=== PATIENT | female | born 1925 | race Caucasian/White ===

== ENCOUNTER 2017-06-17 17:38 | Inpatient (IN) | payer MEDICARE, OTHER ==
[2017-06-17] MEDS ORDERED: Ondansetron 4 MG/2 ML SDV IVPUSH ONE (17:57)
[2017-06-17] MEDS ORDERED: Sodium Chloride 0.9% 1,000 ML IV SCH (18:00)
--- NOTE | 2017-06-17 18:02 | EDM.PDOC ---
ED HPI GENERAL MEDICAL PROBLEM - General Chief Complaint: Respiratory Problem Stated Complaint: [facility] Time Seen by Provider: 06/17/17 17:46 Source of Information: Reports: Patient, EMS Notes Reviewed History Limitations: Reports: No Limitations - History of Present Illness INITIAL COMMENTS - FREE TEXT/NARRATIVE: 89-year-old female presents to the ED per [place] [facility]. She states she developed chest discomfort this afternoon with a rather productive sounding cough and shortness of breath. She has not felt well for the last 2-3 days. She has not eaten hardly at all today and ate only a small amount yesterday. She doesn't clarify that she has any fever or severe chills. Is not noted any odor to her urine. Denies any dysuria urgency or frequency. Denies any chest pain. She was placed on oxygen en route to the hospital but here off of oxygen her sats are 100% on room air. Her pressure is elevated. He is alert and able to answer all questions fairly appropriately. She has a pacemaker left upper anterior chest which apparently the Isauro's are very low. She has not made the decision whether to pursue pacemaker battery change due to her age of 89. She is hoping to outlive her pacemaker Onset: Today Onset Date: 06/17/17 Onset Time: 14:00 Duration: Hour(s): Location: Reports: Chest (Central chest discomfort with a cough and shortness of breath.) Quality: Reports: Ache, Pressure Severity: Moderate Improves with: Reports: None Worsens with: Reports: Other Context: Reports: Other. Denies: Activity (Lying flat seemed to make things worse.), Exercise, Lifting, Sick Contact, Trauma Associated Symptoms: Reports: Chest Pain (Is bringing up some sputum but not aware of any color to chest discomfort and more to the left), Cough (Gradual onset of not feeling well over the last couple of days), cough w sputum, Loss of Appetite, Malaise, Shortness of Breath, Weakness. 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: Other (see below) (Has taken only her normal medications.) - Related Data Allergies Allergy/AdvReac Type Severity Reaction Status Date / Time No Known Allergies Allergy Verified 06/17/17 17:53 Home Meds: Home Meds Aspirin [Ecotrin] 81 mg PO DAILY 11/15/15 [History] Calcium Carbonate [Calcium] 600 mg PO DAILY 11/15/15 [History] Diltiazem HCl [Diltiazem 24Hr ER] 240 mg PO DAILY 11/15/15 [History] Ferrous Sulfate [Iron] 65 mg PO DAILY 11/15/15 [History] Gabapentin [Neurontin] 300 mg PO TID 11/15/15 [History] Losartan [Cozaar] 50 mg PO DAILY 11/15/15 [History] Magnesium Glycinate [Mag Glycinate] 100 mg PO DAILY 11/15/15 [History] Metoprolol Tartrate 100 mg PO BID 11/15/15 [History] Multivitamin [One-A-Day Essential] 1 tab PO DAILY 11/15/15 [History] Omeprazole 20 mg PO BID 11/15/15 [History] Oxybutynin [Oxybutynin ER] 5 mg PO DAILY 11/15/15 [History] Potassium Chloride 20 meq PO DAILY 11/15/15 [History] Pravastatin [Pravachol] 20 mg PO DAILY 11/15/15 [History] SitaGLIPtin [Januvia] 50 mg PO DAILY 11/15/15 [History] Terazosin [Hytrin] 5 mg PO DAILY 11/15/15 [History] Vitamin B6-pyridOXINE [Vitamin B6] 100 mg PO BID 11/15/15 [History] Warfarin [Coumadin] 2 mg PO MOWEFR 11/15/15 [History] Warfarin [Coumadin] 4 mg PO SUTUTHSA 11/15/15 [History] Furosemide [Lasix] 40 mg PO ASDIRECTED #0 11/23/15 [Rx] Metolazone 5 mg PO ASDIRECTED #0 11/23/15 [Rx] Past Medical History HEENT History: Reports: Cataract, Impaired Vision, Other (See Below) Other HEENT History: wears glasses Cardiovascular History: Reports: Angina, Blood Clots/VTE/DVT (Is on Coumadin for this.), Heart Failure, Heart Murmur, High Cholesterol, Hypertension, [place], Pacemaker Gastrointestinal History: Reports: GERD, Hemorrhoids Musculoskeletal History: Reports: Arthritis, Osteoporosis Neurological History: Reports: Other (See Below) Other Neuro History: pt. stated they told her she had a stroke before Endocrine/Metabolic History: Reports: Diabetes, Type II - Past Surgical History HEENT Surgical History: Reports: Cataract Surgery GI Surgical History: Reports: Appendectomy, Cholecystectomy, Colonoscopy, Other (See Below) Female Surgical History: Reports: Other (See Below) Social & Family History - Family History Family Medical History: Noncontributory - Tobacco Use Smoking Status *Q: Never Smoker Second Hand Smoke Exposure: No - Recreational Drug Use Recreational Drug Use: No Drug Use in Last 12 Months: No - Living Situation & Occupation Living situation: Reports: with Spouse Occupation: Retired Social History Comment: [place] [facility] with her . ED ROS GENERAL - Review of Systems Review Of Systems: See Below Constitutional: Reports: Malaise, Weakness, Fatigue, Decreased Appetite, Weight Loss. Denies: Fever, Chills HEENT: Reports: Glasses (The last 2 days.), Other (Has mild hearing loss but does not wear hearing aids.) Respiratory: Reports: Shortness of Breath, Cough, Sputum (Starting today.). Denies: Wheezing, Pleuritic Chest Pain, Hemoptysis ( Feels she is bringing up some sputum.) Cardiovascular: Reports: Chest Pain, Blood Pressure Problem (Central precordial chest discomfort today.), Dyspnea on Exertion, Lightheadedness. Denies: Claudication, Edema, Orthopnea ( Hypertension) Endocrine: Reports: Fatigue (Chronically) GI/Abdominal: Reports: Constipation, Decreased Appetite (Last couple of days for sure.), Nausea. Denies: Vomiting : Reports: Frequency, Incontinence (Both stress and urge components.). Denies : Dysuria Musculoskeletal: Reports: Neck Pain, Back Pain Skin: Reports: No Symptoms Neurological: Reports: Other (Has diabetic neuropathy in her lower extremities is on gabapentin for this. Has chronic lower leg pain.) Psychiatric: Reports: Depression Hematologic/Lymphatic: Reports: No Symptoms Immunologic: Reports: No Symptoms ED EXAM, GENERAL - Physical Exam Exam: See Below Exam Limited By: No Limitations General Appearance: Alert, No Apparent Distress, Other (Does feel mildly warm to palpation.) Eye Exam: Right Eye: Normal Inspection (Previous cataract) Ears: Normal TMs Throat/Mouth: Other (Tongue is moderately dry and coated) Head: Atraumatic, Normocephalic (. She clinically appears to be mildly volume depleted.) Neck: Normal Inspection, Limited Range of Motion, Tender Lateral (She has crepitus on lateral rotation of the cervical spine). No: Full Range of Motion, Carotid Bruit, Lymphadenopathy (L), Lymphadenopathy (R) Respiratory/Chest: No Respiratory Distress, Lungs Clear, Decreased Breath Sounds (Breath sounds are mildly decreased to the lower 25% of lung rosales without any adventitial sounds.). No: Rales, Rhonchi, Wheezing Cardiovascular: No Edema, No Gallop, Systolic Murmur (She has a grade 1-2 systolic ejection murmur to the left of the sternum that radiates towards the left axilla compatible with mitral insufficiency. I suspect there is also grade 1 pansystolic murmur at the left lateral sternal border compatible with aortic stenosis as well. He does not radiate up into the carotid arteries however.), Other (Pacemaker left upper anterior chest. Monitor the rhythm is primarily paced rhythm at 68/m) Peripheral Pulses: 1+: Posterior Tibial (L), Posterior Tibial (R), Dorsalis Pedis (L), Dorsalis Pedis (R) GI/Abdominal: Normal Bowel Sounds, Soft, Non-Tender, No Organomegaly Back Exam: Decreased Range of Motion. No: CVA Tenderness (L), CVA Tenderness (R ) Extremities: Normal Inspection, Normal Range of Motion, Non-Tender, No Pedal Edema. No: Pedal Edema Neurological: Alert, Oriented, CN II-XII Intact, Normal Cognition Psychiatric: Normal Affect, Normal Mood Skin Exam: Warm, Dry, Intact, Normal Color, No Rash, Other (Does feel slightly warm to palpation but this is not confirmed by temperature checked by nursing staff.) EKG INTERPRETATION EKG Date: 06/17/17 Time: 18:20 Rhythm: Other (Primarily ventricular paced rhythm at 70/m. There are frequent PACs sees with widened complex due to left bundle branch block pattern. The underlying rhythm is likely atrial fibrillation. This would be a better reason for her to be on Coumadin long-term.) [place]: LAD-Left [place] Deviation (-49 left bundle branch block pattern) EKG Interpretation Comments: Due to paced rhythm no further analysis was attempted. Course - Vital Signs Last Recorded V/S: Last Vital Signs Temp 36.9 C 06/17/17 17:42 Pulse 86 06/17/17 17:42 Resp 13 06/17/17 17:42 BP 168/82 H 06/17/17 17:42 Pulse Ox 100 06/17/17 17:42 - Orders/Labs/Meds Orders: Active Orders 24 hr Category Date Time Status EKG Documentation Completion [RC] STAT Care 06/17/17 17:57 Active Chest 1V Frontal [CR] Stat Exams 06/17/17 17:57 Taken CULTURE BLOOD [BC] Stat Lab 06/17/17 18:43 Received CULTURE BLOOD [BC] Stat Lab 06/17/17 18:51 Received OSMOLALITY,SERUM [CHEM] Stat Lab 06/17/17 20:00 Ordered Magnesium Sulfate/Water [Magnesium Sulfate 4 GM in Med 06/17/17 19:48 Ordered Water 100 ML] 4 gm Premix Bag 1 bag IV ONETIME Blood Culture x2 Reflex Set [OM.PC] Stat Oth 06/17/17 17:59 Ordered Medication Orders Magnesium Sulfate 4 gm/ Premix 100 mls @ 50 mls/hr IV ONETIME ONE Stop: 06/17/17 21:47 Labs: Laboratory Tests 06/17/17 06/17/17 06/17/17 Range/Units 18:06 18:43 18:43 WBC 17.79 H (3.98-10.04) K/mm3 RBC 4.47 (3.98-5.22) M/mm3 Hgb 12.9 (11.2-15.7) gm/L Hct 38.8 (34.1-44.9) % MCV 86.8 (79.4-94.8) fl MCH 28.9 (25.6-32.2) pg MCHC 33.2 (32.2-35.5) g/dl RDW Std Deviation 43.2 (36.4-46.3) fL Plt Count 430 H (182-369) K/mm3 MPV 9.4 (9.4-12.3) fl Neutrophils % (Manual) 71 H (40-60) % Band Neutrophils % 0 (0-10) % Lymphocytes % (Manual) 29 (20-40) % Atypical Lymphs % 0 % Monocytes % (Manual) 0 L (2-10) % Eosinophils % (Manual) 0 L (0.7-5.8) % Basophils % (Manual) 0 L (0.1-1.2) Platelet Estimate Adequate RBC Morph Comment Normal PT 13.8 H (8.0-13.0) SECONDS INR 1.29 Sodium (136-145) mEq/L Potassium (3.5-5.1) mEq/L Chloride (98-107) mEq/L Carbon Dioxide (21-32) mEq/L Anion Gap (5-15) BUN (7-18) mg/dL Creatinine (0.55-1.02) mg/dL Est Cr Clr Drug Dosing mL/min Estimated GFR (MDRD) (>60) mL/min BUN/Creatinine Ratio (14-18) Glucose (83-115) mg/dL Lactic Acid (0.4-2.0) mmol/L Calcium (8.5-10.1) mg/dL Magnesium (1.8-2.4) mg/dl Total Bilirubin (0.2-1.0) mg/dL AST (15-37) U/L ALT (14-59) U/L Alkaline Phosphatase (46-116) U/L CK-MB (CK-2) (0-3.6) ng/ml Troponin I (0.00-0.056) ng/mL C-Reactive Protein (<1.0) mg/dL NT-Pro-B Natriuret Pep (0-450) pg/mL Total Protein (6.4-8.2) g/dl Albumin (3.4-5.0) g/dl Globulin gm/dL Albumin/Globulin Ratio (1-2) Urine Color Yellow (Yellow) Urine Appearance Clear (Clear) Urine pH 7.0 (5.0-8.0) Ur Specific [place] 1.015 (1.005-1.030) Urine Protein 2+ H (Negative) Urine Glucose (UA) Negative (Negative) Urine Ketones Negative (Negative) Urine Occult Blood 1+ H (Negative) Urine Nitrite Negative (Negative) Urine Bilirubin Negative (Negative) Urine Urobilinogen 0.2 (0.2-1.0) Ur Leukocyte Esterase Trace H (Negative) Urine RBC 0-5 (0-5) /hpf Urine WBC 0-5 (0-5) /hpf Ur Epithelial Cells 0-5 (0-5) /hpf Urine Bacteria Few (FEW) /hpf Urine Mucus Not seen (FEW) /hpf Ketones (0.0-0.3) mM 06/17/17 06/17/17 06/17/17 Range/Units 18:43 18:43 18:43 WBC (3.98-10.04) K/mm3 RBC (3.98-5.22) M/mm3 Hgb (11.2-15.7) gm/L Hct (34.1-44.9) % MCV (79.4-94.8) fl MCH (25.6-32.2) pg MCHC (32.2-35.5) g/dl RDW Std Deviation (36.4-46.3) fL Plt Count (182-369) K/mm3 MPV (9.4-12.3) fl Neutrophils % (Manual) (40-60) % Band Neutrophils % (0-10) % Lymphocytes % (Manual) (20-40) % Atypical Lymphs % % Monocytes % (Manual) (2-10) % Eosinophils % (Manual) (0.7-5.8) % Basophils % (Manual) (0.1-1.2) Platelet Estimate RBC Morph Comment PT (8.0-13.0) SECONDS INR Sodium 129 L (136-145) mEq/L Potassium 3.7 (3.5-5.1) mEq/L Chloride 90 L (98-107) mEq/L Carbon Dioxide 30 (21-32) mEq/L Anion Gap 12.7 (5-15) BUN 29 H (7-18) mg/dL Creatinine 1.1 H (0.55-1.02) mg/dL Est Cr Clr Drug Dosing 26.16 mL/min Estimated GFR (MDRD) 47 (>60) mL/min BUN/Creatinine Ratio 26.4 H (14-18) Glucose 113 (83-115) mg/dL Lactic Acid 1.1 (0.4-2.0) mmol/L Calcium 9.0 (8.5-10.1) mg/dL Magnesium 1.1 L (1.8-2.4) mg/dl Total Bilirubin 0.5 (0.2-1.0) mg/dL AST 18 (15-37) U/L ALT 27 (14-59) U/L Alkaline Phosphatase 141 H (46-116) U/L CK-MB (CK-2) 0.7 (0-3.6) ng/ml Troponin I 0.039 (0.00-0.056) ng/mL C-Reactive Protein 1.3 H* (<1.0) mg/dL NT-Pro-B Natriuret Pep (0-450) pg/mL Total Protein 7.1 (6.4-8.2) g/dl Albumin 2.9 L (3.4-5.0) g/dl Globulin 4.2 gm/dL Albumin/Globulin Ratio 0.7 L (1-2) Urine Color (Yellow) Urine Appearance (Clear) Urine pH (5.0-8.0) Ur Specific [place] (1.005-1.030) Urine Protein (Negative) Urine Glucose (UA) (Negative) Urine Ketones (Negative) Urine Occult Blood (Negative) Urine Nitrite (Negative) Urine Bilirubin (Negative) Urine Urobilinogen (0.2-1.0) Ur Leukocyte Esterase (Negative) Urine RBC (0-5) /hpf Urine WBC (0-5) /hpf Ur Epithelial Cells (0-5) /hpf Urine Bacteria (FEW) /hpf Urine Mucus (FEW) /hpf Ketones 0.39 (0.0-0.3) mM 03/25/18 Range/Units 18:43 WBC (3.98-10.04) K/mm3 RBC (3.98-5.22) M/mm3 Hgb (11.2-15.7) gm/L Hct (34.1-44.9) % MCV (79.4-94.8) fl MCH (25.6-32.2) pg MCHC (32.2-35.5) g/dl RDW Std Deviation (36.4-46.3) fL Plt Count (182-369) K/mm3 MPV (9.4-12.3) fl Neutrophils % (Manual) (40-60) % Band Neutrophils % (0-10) % Lymphocytes % (Manual) (20-40) % Atypical Lymphs % % Monocytes % (Manual) (2-10) % Eosinophils % (Manual) (0.7-5.8) % Basophils % (Manual) (0.1-1.2) Platelet Estimate RBC Morph Comment PT (8.0-13.0) SECONDS INR Sodium (136-145) mEq/L Potassium (3.5-5.1) mEq/L Chloride (98-107) mEq/L Carbon Dioxide (21-32) mEq/L Anion Gap (5-15) BUN (7-18) mg/dL Creatinine (0.55-1.02) mg/dL Est Cr Clr Drug Dosing mL/min Estimated GFR (MDRD) (>60) mL/min BUN/Creatinine Ratio (14-18) Glucose (83-115) mg/dL Lactic Acid (0.4-2.0) mmol/L Calcium (8.5-10.1) mg/dL Magnesium (1.8-2.4) mg/dl Total Bilirubin (0.2-1.0) mg/dL AST (15-37) U/L ALT (14-59) U/L Alkaline Phosphatase (46-116) U/L CK-MB (CK-2) (0-3.6) ng/ml Troponin I (0.00-0.056) ng/mL C-Reactive Protein (<1.0) mg/dL NT-Pro-B Natriuret Pep 5457 H (0-450) pg/mL Total Protein (6.4-8.2) g/dl Albumin (3.4-5.0) g/dl Globulin gm/dL Albumin/Globulin Ratio (1-2) Urine Color (Yellow) Urine Appearance (Clear) Urine pH (5.0-8.0) Ur Specific [place] (1.005-1.030) Urine Protein (Negative) Urine Glucose (UA) (Negative) Urine Ketones (Negative) Urine Occult Blood (Negative) Urine Nitrite (Negative) Urine Bilirubin (Negative) Urine Urobilinogen (0.2-1.0) Ur Leukocyte Esterase (Negative) Urine RBC (0-5) /hpf Urine WBC (0-5) /hpf Ur Epithelial Cells (0-5) /hpf Urine Bacteria (FEW) /hpf Urine Mucus (FEW) /hpf Ketones (0.0-0.3) mM Meds: Medications Generic Name Dose Route Start Last Admin Trade Name Freq PRN Reason Stop Dose Admin Magnesium Sulfate 4 gm/ Premix 100 mls @ 50 mls/hr 06/17/17 19:48 IV 06/17/17 21:47 ONETIME ONE Discontinued Medications Generic Name Dose Route Start Last Admin Trade Name Freq PRN Reason Stop Dose Admin Furosemide 40 mg 06/17/17 19:02 06/17/17 19:20 Lasix IVPUSH 06/17/17 19:03 40 mg NOW ONE Administration Sodium Chloride 1,000 mls @ 150 mls/hr 06/17/17 18:00 06/17/17 18:08 Normal Saline IV 150 mls/hr ASDIRECTED ARNOLD Administration Ondansetron HCl 4 mg 06/17/17 17:57 06/17/17 18:08 Zofran IVPUSH 06/17/17 17:58 4 mg ONETIME ONE Administration - Radiology Interpretation Free Text/Narrative:: 89-year-old female attends the ED per ambulance from [place]. She states that she developed chest discomfort with a cough mid afternoon today about 1400 hrs. She's not sure she's been running a fever but she's not been feeling well for the last 2-3 days. Has hardly ate anything at all today and not much yesterday. Feeling weak. Feels mildly nauseated but has had no vomiting or diarrhea. She has not had influenza this season. She has a history of a bad heart with a paced rhythm that the battery is going low on her pacemaker. She has not made a decision as to whether to have the pacemaker replaced. She is rather hoping the pacemaker out lives her. She states does have a mild cough with minimal productive sputum. Examination reveals clear lung rosales with O2 sats 98-100% on initial assessment. Therefore oxygen was taken off. Plan 1 view chest x-ray ECG routine labs including cardiac markers and BNP to be done urine will be obtained by catheterized specimen as I can smell foul-smelling urine. - Re-Assessments/Exams Free Text/Narrative Re-Assessment/Exam: 06/17/17 18:53 Chest x-ray reveals mild cardiomegaly with diffuse vascular congestion pattern. There are no pleural effusions however. Pacemaker left upper anterior chest appreciated with a solitary ventricular lead. Urinalysis obtained by catheter reveals only trace leukocyte esterase with no significant pus cells on high-power field. Since the chest x-ray reveals diffuse vascular congestion I will give her Lasix 40 mg IV at this time. Labs are otherwise pending. 06/17/17 19:33 White count is elevated at 17.79 with 71% neutrophils and no bands reported. Hemoglobin is 12.9 with hematocrit of 38.8. Bili count is 430, 000 which is mildly elevated. PT is 13.8 with an INR of 1.29. This is subtherapeutic for DVT treatment or prevention. Sodium is low at 129. Potassium is 3.7. Chloride is 90. Bicarbonate 30. Anion gap is 12.7. BUN is 29. Creatinine is 1.1. Estimated GFR is 47. Glucose is 113 lactic acid is 1.1 calcium is 9.0. Magnesium is very low at 1.1. Total bilirubin is 0.5 with an AST of 18. ALT is 27 alk phosphatase slightly elevated at 141. CK-MB is normal at 0.7. Troponin I is 0.039. C-reactive protein is mildly elevated 1.3. BNP is 5457. Urinalysis urinalysis shows 2+ protein 1+ occult blood trace leukocyte esterase but negative micro-. I have no way of explaining why her white count is so high. Her BNP certainly correlates with her chest x-ray revealing significant congestive heart failure but this is chronic. There is no evidence of recent acute deterioration of myocardial function [place]. She has hypomagnesemic and hyponatremic concerning to her weakness and nausea. I will discuss case with Dr. Richardson-- education and training coordinator hospitalist with a view to admission to hospital.. I discussed the findings with her and daughter. I followed up from the daughter that patient was on 80 mg of Lasix twice a day but that the dosage was changed a few weeks ago to 40 in the morning and 20 in the p.m. and she since has deteriorated in terms of pulmonary function and shortness of breath. 06/17/17 19:41 Will start her on magnesium 4 g IV at [address] Richardson will attend her in the ED with a view to admission to the hospital med surgery status. Of note serum ketones are mildly elevated at 0.39. Departure - Departure Time of Disposition: 20:30 Disposition: Admitted As Inpatient 68 Clinical Impression: Neutrophilic leukocytosis, Hyponatremia with decreased serum osmolality, Hypomagnesemia, Chronic atrial fibrillation, Subtherapeutic international normalized ratio (INR) Acute exacerbation of congestive heart failure Qualifiers: Heart failure type: diastolic Qualified Code(s): I50.33 - Acute on chronic diastolic (congestive) heart failure - Discharge Information Referrals: PCP,None [Primary Care Provider] - Forms: ED Department Discharge - My Orders Last 24 Hours: My Active Orders 06/17/17 17:57 EKG Documentation Completion [RC] STAT Chest 1V Frontal [CR] Stat 06/17/17 17:59 Blood Culture x2 Reflex Set [OM.PC] Stat 06/17/17 18:43 CULTURE BLOOD [BC] Stat 06/17/17 18:51 CULTURE BLOOD [BC] Stat 06/17/17 19:48 Magnesium Sulfate/Water [Magnesium Sulfate 4 GM in Water 100 ML] 4 gm Premix Bag 1 bag IV ONETIME 06/17/17 20:00 OSMOLALITY,SERUM [CHEM] Stat - Assessment/Plan Last 24 Hours: My Active Orders 06/17/17 17:57 EKG Documentation Completion [RC] STAT Chest 1V Frontal [CR] Stat 06/17/17 17:59 Blood Culture x2 Reflex Set [OM.PC] Stat 06/17/17 18:43 CULTURE BLOOD [BC] Stat 06/17/17 18:51 CULTURE BLOOD [BC] Stat 06/17/17 19:48 Magnesium Sulfate/Water [Magnesium Sulfate 4 GM in Water 100 ML] 4 gm Premix Bag 1 bag IV ONETIME 06/17/17 20:00 OSMOLALITY,SERUM [CHEM] Stat
[2017-06-17] MEDS ORDERED: Furosemide 40 MG/4 ML VIAL IVPUSH ONE (19:02)
[2017-06-17] MEDS ORDERED: Magnesium Sulfate/Water 4 GM in Premix Bag 1 BAG IV ONE (19:48)
[2017-06-17] MEDS ORDERED: Magnesium Sulfate/Water 2 GM in Premix Bag 1 BAG IV ONE ×2 (20:02→20:03)
--- NOTE | 2017-06-17 20:44 | PCM.HP ---
H&P History of Present Illness - General Date of Service: 06/17/17 Source of Information: Family, Provider History Limitations: Reports: No Limitations - History of Present Illness Initial Comments - Free Text/Narative: 89 year old female reports SOB with associated CP. This was reported as happening on the day of admission. However the exact duration is unknown. The patient also reported having a productive cough but no F/C. She admits to [place], recent weight gain after an adjustment of her diuretic. Moreover her Oxybutynin was increased from 5 mg-->10 mg without improvement. She denies symptoms of a UTI. The UA however does have 2+protein. A PPM is reportedly at EOL; thus a generator change or upgrade will be discussed at her next cardiology visit. This is scheduled for July 2017. Onset of Symptoms: Reports: Gradual Symptom Onset Date: 06/14/17 Duration of Symptoms: Reports: Day(s):, Getting Worse Location: Reports: Chest, Generalized Quality: Reports: Same as Previous Episode Severity: Moderate Improves with: Reports: Medication Worsens with: Reports: Movement Context: Reports: Sick Contact Associated Symptoms: Reports: cough w sputum, Malaise, Nausea/Vomiting, Shortness of Breath, Weakness - Related Data Allergies/Adverse Reactions: Allergies Allergy/AdvReac Type Severity Reaction Status Date / Time No Known Allergies Allergy Verified 06/18/17 09:18 Home Medications: Home Meds Aspirin [Ecotrin] 81 mg PO DAILY 11/15/15 [History] Ferrous Sulfate [Iron] 325 mg PO DAILY 11/15/15 [History] Gabapentin [Neurontin] 300 mg PO TID 11/15/15 [History] Losartan [Cozaar] 50 mg PO BID 11/15/15 [History] Metoprolol Tartrate 100 mg PO BID 11/15/15 [History] Multivitamin [One-A-Day Essential] 1 tab PO DAILY 11/15/15 [History] Omeprazole 40 mg PO DAILY 11/15/15 [History] Potassium Chloride 20 meq PO DAILY 11/15/15 [History] Pravastatin [Pravachol] 20 mg PO BEDTIME 11/15/15 [History] SitaGLIPtin [Januvia] 50 mg PO DAILY 11/15/15 [History] Vitamin B6-pyridOXINE [Vitamin B6] 100 mg PO BID 11/15/15 [History] Warfarin [Coumadin] 2 mg PO MOWEFR 11/15/15 [History] Warfarin [Coumadin] 4 mg PO SUTUTHSA 11/15/15 [History] Calcium Carbonate/Vitamin D3 [Calcium 500-Vit D3 200 Caplet] 1 tab PO ACBREAKFAST 06/17/17 [History] Digoxin 125 mcg PO DAILY 06/17/17 [History] Furosemide [Lasix] 20 mg PO QPM 06/17/17 [History] Levothyroxine 25 mcg PO ACBREAKFAST 06/17/17 [History] Metolazone 2.5 mg PO TUTHSA 06/17/17 [History] Oxybutynin [Oxybutynin ER] 10 mg PO DAILY 06/17/17 [History] Furosemide [Lasix] 40 mg PO QAM 06/18/17 [History] Past Medical History HEENT History: Reports: Cataract, Impaired Vision, Other (See Below) Other HEENT History: wears glasses Cardiovascular History: Reports: Angina, Blood Clots/VTE/DVT (Is on Coumadin for this.), Heart Failure, Heart Murmur, High Cholesterol, Hypertension, SD, Pacemaker Gastrointestinal History: Reports: GERD, Hemorrhoids 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 stated they told her she had a stroke before Endocrine/Metabolic History: Reports: Diabetes, Type II - Past Surgical History HEENT Surgical History: Reports: Cataract Surgery GI Surgical History: Reports: Appendectomy, Cholecystectomy, Colonoscopy, Other (See Below) Female Surgical History: Reports: Other (See Below) Social & Family History - Family History Family Medical History: Noncontributory - Tobacco Use Smoking Status *Q: Never Smoker Second Hand Smoke Exposure: No - Caffeine Use Caffeine Use: Reports: None - Recreational Drug Use Recreational Drug Use: No Drug Use in Last 12 Months: No - Living Situation & Occupation Living situation: Reports: with Spouse Occupation: Retired H&P Review of Systems - Review of Systems: Review Of Systems: See Below General: Reports: Malaise, Weakness, Fatigue, Decreased Appetite HEENT: Reports: No Symptoms Pulmonary: Reports: Shortness of Breath, Cough, Sputum Cardiovascular: Reports: Chest Pain, Lightheadedness Gastrointestinal: Reports: No Symptoms Genitourinary: Reports: No Symptoms Musculoskeletal: Reports: No Symptoms Skin: Reports: No Symptoms Psychiatric: Reports: No Symptoms Neurological: Reports: No Symptoms Hematologic/Lymphatic: Reports: No Symptoms Immunologic: Reports: No Symptoms Exam - Exam Exam: See Below - Vital Signs Vital Signs: Last Vital Signs Temp 36.9 C 06/17/17 17:42 Pulse 86 06/17/17 17:42 Resp 13 06/17/17 17:42 BP 168/82 H 06/17/17 17:42 Pulse Ox 100 06/17/17 17:42 Weight: 71.668 kg - Exam Quality Assessment: Supplemental Oxygen, Urinary Catheter, DVT Prophylaxis General: Alert, Oriented, Cooperative HEENT: Conjunctiva Clear, Pupils Equal, Pupils Reactive, PERRLA Neck: Trachea Midline Lungs: Normal Respiratory Effort, Decreased Breath Sounds, Crackles, Wheezing Cardiovascular: Regular Rate, Regular Rhythm GI/Abdominal Exam: Normal Bowel Sounds, Soft, Non-Tender, No Organomegaly, No Distention (Female) Exam: Deferred Rectal (Female) Exam: Deferred Back Exam: Normal Inspection Extremities: Normal Inspection, Non-Tender, Pedal Edema Skin: Warm Neurological: Cranial Nerves Intact Neuro Extensive - Mental Status: Alert, Oriented x3, Normal Mood/Affect Neuro Extensive - Motor, Sensory, Reflexes: CN II-XII Intact Psychiatric: Alert, Normal Affect, Normal Mood - Patient Data Result Diagrams: 06/20/17 04:45 06/20/17 04:45 Problem List Initiated/Reviewed/Updated: Yes Orders Last 24hrs: Medication Orders Magnesium Sulfate 4 gm/ Premix 100 mls @ 50 mls/hr IV ONETIME ONE Stop: 06/17/17 21:47 Last Admin: 06/17/17 20:03 Dose: Not Given Magnesium Sulfate 2 gm/ Premix 50 mls @ 25 mls/hr IV ONETIME ONE Stop: 06/17/17 22:01 Last Admin: 06/17/17 20:11 Dose: 25 mls/hr Magnesium Sulfate 2 gm/ Premix 50 mls @ 25 mls/hr IV ONETIME ONE Stop: 06/17/17 22:02 Assessment/Plan Comment:: Impression: Multiple complaints-->chest pain with associated SOB ---Query PNA; elevated WBCs ---CAD/CMP; LVEF unknown ---CHF-->reportedly adjustment of diuretic has led to fluid overload. ---A Fib on coumadin; subtherapeutic INR ---s/p PPM, VVI History of CVA ---Query embolic cf ischemic CKD stage 3; 2+ protein in UA Low Mg, 1.1 Low Na, 129 Chronic VTE/DVT Diabetes Mellitus type 2 HTN HLD Urinary Incontinence (urge and stress) Plan: Empiric ATB, Levoquin--renal dose Neb scheduled/prn Infectious work up Ischemic work up Diurese as tolerated 2 D echo re: LVEF Verify status of PPM, reportedly EOL Daily Labs Home meds DVT/GI prophylaxis Consult SW/PT/OT Disposition--->doubt that HH would be enough for patient's needs
[2017-06-17] MEDS ORDERED: hydrALAZINE 20 MG/ML SDV IVPUSH PRN (20:52)
[2017-06-17] MEDS ORDERED: Levofloxacin/Dextrose 5%-Water 750 MG in Premix Bag 1 BAG IV SCH (21:00)
[2017-06-17] MEDS ORDERED: 50% Dextrose in Water 50 ML Syringe IVPUSH PRN (21:06)
[2017-06-17] MEDS ORDERED: Enoxaparin 40 MG/0.4 ML Syringe SUBCUT SCH (21:30)
[2017-06-17] MEDS: Insulin Aspart 100 Units/ML 3 ML Pen SUBCUT SCH (22:30)
[2017-06-18] MEDS: Levofloxacin/Dextrose 5%-Water 750 MG in Premix Bag 1 BAG IV SCH (00:38)
[2017-06-18] MEDS: Insulin Aspart 100 Units/ML 3 ML Pen SUBCUT SCH ×4 (06:37→21:28)
[2017-06-18] MEDS: Pantoprazole 40 MG Tab.CR PO SCH (06:46)
[2017-06-18] MEDS: Acetaminophen 325 MG Tab PO PRN (06:46)
[2017-06-18] MEDS: Levothyroxine 25 MCG Tab PO SCH (06:46)
[2017-06-18] MEDS: Digoxin 125 MCG Tab PO SCH (08:18)
[2017-06-18] MEDS: Oxybutynin 5 MG Tab.ER PO SCH (08:18)
[2017-06-18] MEDS: Aspirin 81 MG Tab.EC PO SCH (08:18)
[2017-06-18] MEDS: Ferrous Sulfate 325 MG Tab PO SCH (08:18)
[2017-06-18] MEDS: Metoprolol Tartrate 100 MG Tab PO SCH ×2 (08:18→20:55)
[2017-06-18] MEDS: Gabapentin 300 MG Cap PO SCH ×3 (08:18→20:55)
[2017-06-18] MEDS: Potassium Chloride 20 MEQ Tab.ER PO SCH (08:18)
[2017-06-18] MEDS ORDERED: Non-Formulary Medication 1 Each (Omeprazole 40 MG) PO SCH (09:00)
--- NOTE | 2017-06-18 09:33 | CR ---
Chest: Frontal view of the chest was obtained. Comparison: Prior chest x-ray of 11/15/15. Heart is enlarged. Pulmonary vessels are mildly congested. Lungs otherwise are clear. Unichamber pacemaker is noted. Bony structures show mild degenerative change within both shoulders. Impression: 1. Cardiomegaly and mild pulmonary vascular congestion. 2. Other incidental findings. Diagnostic code #3
--- NOTE | 2017-06-18 11:57 | PCM.PN ---
- General Info Date of Service: 06/18/17 Functional Status: Reports: Tolerating Diet, Urinating - Review of Systems General: Reports: Weakness, Fatigue HEENT: Reports: No Symptoms Pulmonary: Reports: Shortness of Breath Cardiovascular: Reports: Edema Gastrointestinal: Reports: No Symptoms Genitourinary: Reports: No Symptoms Musculoskeletal: Reports: No Symptoms Skin: Reports: No Symptoms Neurological: Reports: No Symptoms Psychiatric: Reports: No Symptoms - Patient Data Vitals - Most Recent: Last Vital Signs Temp 37.0 C 06/18/17 07:29 Pulse 88 06/18/17 08:18 Resp 28 H 06/18/17 07:29 BP 131/61 06/18/17 08:18 Pulse Ox 100 06/18/17 07:29 Weight - Most Recent: 64.92 kg I&O - Last 24 Hours: Intake & Output 06/17/17 06/18/17 06/18/17 22:59 06:59 14:59 Intake Total 600 360 Output Total 1650 Balance -1050 360 Lab Results Last 24 Hours: Laboratory Results - last 24 hr 06/17/17 06/18/17 06/18/17 Range/Units 22:25 06:11 06:21 WBC 17.67 H (3.98-10.04) K/mm3 RBC 4.50 (3.98-5.22) M/mm3 Hgb 13.0 (11.2-15.7) gm/L Hct 39.4 (34.1-44.9) % MCV 87.6 (79.4-94.8) fl MCH 28.9 (25.6-32.2) pg MCHC 33.0 (32.2-35.5) g/dl RDW Std Deviation 45.1 (36.4-46.3) fL Plt Count 433 H (182-369) K/mm3 MPV 9.1 L (9.4-12.3) fl Neut % (Auto) 64.2 (34.0-71.1) % Lymph % (Auto) 27.3 (19.3-51.7) % Mayes % (Auto) 5.4 (4.7-12.5) % Eos % (Auto) 2.4 (0.7-5.8) Baso % (Auto) 0.2 (0.1-1.2) % Neut # (Auto) 11.37 H (1.56-6.13) K/mm3 Lymph # (Auto) 4.82 H (1.18-3.74) K/mm3 Mayes # (Auto) 0.95 H (0.24-0.36) K/mm3 Eos # (Auto) 0.42 H (0.04-0.36) K/mm3 Baso # (Auto) 0.03 (0.01-0.08) K/mm3 PT (8.0-13.0) SECONDS INR Sodium (136-145) mEq/L Potassium (3.5-5.1) mEq/L Chloride (98-107) mEq/L Carbon Dioxide (21-32) mEq/L Anion Gap (5-15) BUN (7-18) mg/dL Creatinine (0.55-1.02) mg/dL Est Cr Clr Drug Dosing mL/min Estimated GFR (MDRD) (>60) mL/min BUN/Creatinine Ratio (14-18) Glucose (83-115) mg/dL POC Glucose 134 H 117 H (83-110) mg/dL Hemoglobin A1c (4.50-6.20) % Lactic Acid (0.4-2.0) mmol/L Calcium (8.5-10.1) mg/dL Magnesium (1.8-2.4) mg/dl Troponin I (0.00-0.056) ng/mL C-Reactive Protein (<1.0) mg/dL NT-Pro-B Natriuret Pep (0-450) pg/mL Digoxin (0.9-2.0) ng/mL 06/18/17 06/18/17 06/18/17 Range/Units 06:21 06:21 06:21 WBC (3.98-10.04) K/mm3 RBC (3.98-5.22) M/mm3 Hgb (11.2-15.7) gm/L Hct (34.1-44.9) % MCV (79.4-94.8) fl MCH (25.6-32.2) pg MCHC (32.2-35.5) g/dl RDW Std Deviation (36.4-46.3) fL Plt Count (182-369) K/mm3 MPV (9.4-12.3) fl Neut % (Auto) (34.0-71.1) % Lymph % (Auto) (19.3-51.7) % Mayes % (Auto) (4.7-12.5) % Eos % (Auto) (0.7-5.8) Baso % (Auto) (0.1-1.2) % Neut # (Auto) (1.56-6.13) K/mm3 Lymph # (Auto) (1.18-3.74) K/mm3 Mayes # (Auto) (0.24-0.36) K/mm3 Eos # (Auto) (0.04-0.36) K/mm3 Baso # (Auto) (0.01-0.08) K/mm3 PT (8.0-13.0) SECONDS INR Sodium (136-145) mEq/L Potassium (3.5-5.1) mEq/L Chloride (98-107) mEq/L Carbon Dioxide (21-32) mEq/L Anion Gap (5-15) BUN (7-18) mg/dL Creatinine (0.55-1.02) mg/dL Est Cr Clr Drug Dosing mL/min Estimated GFR (MDRD) (>60) mL/min BUN/Creatinine Ratio (14-18) Glucose (83-115) mg/dL POC Glucose (83-110) mg/dL Hemoglobin A1c (4.50-6.20) % Lactic Acid 1.1 (0.4-2.0) mmol/L Calcium (8.5-10.1) mg/dL Magnesium 2.5 H (1.8-2.4) mg/dl Troponin I 0.032 (0.00-0.056) ng/mL C-Reactive Protein 1.7 H* (<1.0) mg/dL NT-Pro-B Natriuret Pep 6149 H (0-450) pg/mL Digoxin (0.9-2.0) ng/mL 06/18/17 06/18/17 06/18/17 Range/Units 06:21 06:21 10:59 WBC (3.98-10.04) K/mm3 RBC (3.98-5.22) M/mm3 Hgb (11.2-15.7) gm/L Hct (34.1-44.9) % MCV (79.4-94.8) fl MCH (25.6-32.2) pg MCHC (32.2-35.5) g/dl RDW Std Deviation (36.4-46.3) fL Plt Count (182-369) K/mm3 MPV (9.4-12.3) fl Neut % (Auto) (34.0-71.1) % Lymph % (Auto) (19.3-51.7) % Mayes % (Auto) (4.7-12.5) % Eos % (Auto) (0.7-5.8) Baso % (Auto) (0.1-1.2) % Neut # (Auto) (1.56-6.13) K/mm3 Lymph # (Auto) (1.18-3.74) K/mm3 Mayes # (Auto) (0.24-0.36) K/mm3 Eos # (Auto) (0.04-0.36) K/mm3 Baso # (Auto) (0.01-0.08) K/mm3 PT 13.5 H (8.0-13.0) SECONDS INR 1.26 Sodium (136-145) mEq/L Potassium (3.5-5.1) mEq/L Chloride (98-107) mEq/L Carbon Dioxide (21-32) mEq/L Anion Gap (5-15) BUN (7-18) mg/dL Creatinine (0.55-1.02) mg/dL Est Cr Clr Drug Dosing mL/min Estimated GFR (MDRD) (>60) mL/min BUN/Creatinine Ratio (14-18) Glucose (83-115) mg/dL POC Glucose (83-110) mg/dL Hemoglobin A1c 6.10 (4.50-6.20) % Lactic Acid (0.4-2.0) mmol/L Calcium (8.5-10.1) mg/dL Magnesium (1.8-2.4) mg/dl Troponin I (0.00-0.056) ng/mL C-Reactive Protein (<1.0) mg/dL NT-Pro-B Natriuret Pep (0-450) pg/mL Digoxin 2.0 (0.9-2.0) ng/mL 06/18/17 06/18/17 Range/Units 10:59 11:41 WBC (3.98-10.04) K/mm3 RBC (3.98-5.22) M/mm3 Hgb (11.2-15.7) gm/L Hct (34.1-44.9) % MCV (79.4-94.8) fl MCH (25.6-32.2) pg MCHC (32.2-35.5) g/dl RDW Std Deviation (36.4-46.3) fL Plt Count (182-369) K/mm3 MPV (9.4-12.3) fl Neut % (Auto) (34.0-71.1) % Lymph % (Auto) (19.3-51.7) % Mayes % (Auto) (4.7-12.5) % Eos % (Auto) (0.7-5.8) Baso % (Auto) (0.1-1.2) % Neut # (Auto) (1.56-6.13) K/mm3 Lymph # (Auto) (1.18-3.74) K/mm3 Mayes # (Auto) (0.24-0.36) K/mm3 Eos # (Auto) (0.04-0.36) K/mm3 Baso # (Auto) (0.01-0.08) K/mm3 PT (8.0-13.0) SECONDS INR Sodium 129 L (136-145) mEq/L Potassium 4.1 (3.5-5.1) mEq/L Chloride 90 L (98-107) mEq/L Carbon Dioxide 31 (21-32) mEq/L Anion Gap 12.1 (5-15) BUN 31 H (7-18) mg/dL Creatinine 1.3 H (0.55-1.02) mg/dL Est Cr Clr Drug Dosing 22.14 mL/min Estimated GFR (MDRD) 39 (>60) mL/min BUN/Creatinine Ratio 23.8 H (14-18) Glucose 127 H (83-115) mg/dL POC Glucose 102 (83-110) mg/dL Hemoglobin A1c (4.50-6.20) % Lactic Acid (0.4-2.0) mmol/L Calcium 8.8 (8.5-10.1) mg/dL Magnesium (1.8-2.4) mg/dl Troponin I (0.00-0.056) ng/mL C-Reactive Protein (<1.0) mg/dL NT-Pro-B Natriuret Pep (0-450) pg/mL Digoxin (0.9-2.0) ng/mL Jason Results Last 24 Hours: Microbiology 06/17/17 23:50 Influenza Type A Antigen Screen - Final Nasopharyngeal Swab NEGATIVE INFLUENZA A VIRUS AG Influenza Type B Antigen Screen - Final NEGATIVE INFLUENZA B VIRUS AG Med Orders - Current: Current Medications Acetaminophen (Tylenol) 650 mg PO Q6H PRN PRN Reason: Pain/Fever Last Admin: 06/18/17 06:46 Dose: 650 mg Aspirin (Halfprin) 81 mg PO DAILY [facility] Last Admin: 06/18/17 08:18 Dose: 81 mg Dextrose/Water (Dextrose 50% In Water) 50 ml IVPUSH ASDIRECTED PRN PRN Reason: Hypoglycemia Digoxin (Lanoxin) 125 mcg PO DAILY [facility] Last Admin: 06/18/17 08:18 Dose: 125 mcg Enoxaparin Sodium (Lovenox) 40 mg SUBCUT Q24H [facility] Last Admin: 06/17/17 22:30 Dose: 40 mg Ferrous Sulfate (Ferrous Sulfate) 325 mg PO DAILY [facility] Last Admin: 06/18/17 08:18 Dose: 325 mg Gabapentin (Neurontin) 300 mg PO TID [facility] Last Admin: 06/18/17 08:18 Dose: 300 mg Hydralazine HCl (Apresoline) 20 mg IVPUSH Q6H PRN PRN Reason: Hypertension Levofloxacin/Dextrose 750 mg/ (Premix) 150 mls @ 100 mls/hr IV Q48H [facility] Last Admin: 06/18/17 00:38 Dose: 100 mls/hr Insulin Aspart (Novolog) 0 unit SUBCUT QIDACANDBED [facility] PRN Reason: Protocol Last Admin: 06/18/17 06:37 Dose: Not Given Levothyroxine Sodium (Levothyroxine) 25 mcg PO ACBREAKFAST [facility] Last Admin: 06/18/17 06:46 Dose: 25 mcg Metolazone (Zaroxolyn) 2.5 mg PO TuThSa@0900 [facility] Metoprolol Tartrate (Lopressor) 100 mg PO BID [facility] Last Admin: 06/18/17 08:18 Dose: 100 mg Non-Formulary Medication (Sitagliptin) 50 mg PO DAILY [facility] Oxybutynin Chloride (Oxybutynin Er) 10 mg PO DAILY [facility] Last Admin: 06/18/17 08:18 Dose: 10 mg Pantoprazole Sodium (Protonix) 40 mg PO DAILY@0700 [facility] Last Admin: 06/18/17 06:46 Dose: 40 mg Potassium Chloride (Klor-Con M20) 20 meq PO DAILY [facility] Last Admin: 06/18/17 08:18 Dose: 20 meq Simvastatin (Zocor) 10 mg PO BEDTIME [facility] Temazepam (Restoril) 7.5 mg PO BEDTIME PRN PRN Reason: Insomnia Warfarin Sodium (Coumadin) 2 mg PO MoWeFr@1800 [facility] Warfarin Sodium (Coumadin) 4 mg PO SuTuThSa@1800 [facility] Discontinued Medications Furosemide (Lasix) 40 mg IVPUSH NOW ONE Stop: 06/17/17 19:03 Last Admin: 06/17/17 19:20 Dose: 40 mg Sodium Chloride (Normal Saline) 1,000 mls @ 150 mls/hr IV ASDIRECTED [facility] Last Admin: 06/17/17 18:08 Dose: 150 mls/hr Magnesium Sulfate 4 gm/ Premix 100 mls @ 50 mls/hr IV ONETIME ONE Stop: 06/17/17 21:47 Last Admin: 06/17/17 20:03 Dose: Not Given Magnesium Sulfate 2 gm/ Premix 50 mls @ 25 mls/hr IV ONETIME ONE Stop: 06/17/17 22:01 Last Admin: 06/17/17 20:11 Dose: 25 mls/hr Magnesium Sulfate 2 gm/ Premix 50 mls @ 25 mls/hr IV ONETIME ONE Stop: 06/17/17 22:02 Last Admin: 06/17/17 22:29 Dose: 25 mls/hr Ondansetron HCl (Zofran) 4 mg IVPUSH ONETIME ONE Stop: 06/17/17 17:58 Last Admin: 06/17/17 18:08 Dose: 4 mg - Exam Quality Assessment: Supplemental Oxygen, DVT Prophylaxis General: Alert, Oriented, Cooperative HEENT: Pupils Equal, Pupils Reactive, EOMI Neck: Trachea Midline, No JVD Lungs: Normal Respiratory Effort, Decreased Breath Sounds Cardiovascular: Regular Rate, Regular Rhythm GI/Abdominal Exam: Normal Bowel Sounds, Soft, Non-Tender, No Organomegaly, No Distention (Female) Exam: Deferred Back Exam: Normal Inspection Extremities: Normal Inspection, Non-Tender, Pedal Edema Skin: Warm Neurological: No New Focal Deficit Psy/Mental Status: Alert, Normal Affect, Normal Mood - Problem List Review Problem List Initiated/Reviewed/Updated: Yes - My Orders Last 24 Hours: My Active Orders 06/17/17 18:06 CULTURE URINE [RM] Routine 06/17/17 20:52 hydrALAZINE [Apresoline] 20 mg IVPUSH Q6H PRN 06/17/17 20:55 Activity as Tolerated [RC] .Routine Vital Signs [RC] 09,15,21,03 06/17/17 21:06 Blood Glucose Check, Bedside [RC] QIDACANDBED Dextrose 50% in Water 50 ml IVPUSH ASDIRECTED PRN 06/17/17 21:10 Consult to Cable Installation Technician [CONS] Routine 06/17/17 21:14 Antiembolic Devices [RC] BID Heart Failure Education [RC] DAILY ADEOLA Hose [Antiembolic Hose] [OM.PC] Routine 06/17/17 21:15 Temazepam [Restoril] 7.5 mg PO BEDTIME PRN 06/17/17 21:20 Bedrest Bedside Commode [RC] ASDIRECTED 06/17/17 21:27 Acetaminophen [Tylenol] 650 mg PO Q6H PRN 06/17/17 21:30 Enoxaparin [Lovenox] 40 mg SUBCUT Q24H Levofloxacin/Dextrose 5%-Water [Levaquin in D5W 750 MG/150 ML] 750 mg Premix Bag 1 bag IV Q48H 06/17/17 21:49 Resuscitation Status Routine 06/17/17 22:00 Insulin Aspart [NovoLOG] See Protocol SUBCUT QIDACANDBED 06/17/17 23:50 RESPIRATORY PANEL BY PCR [MREF] Routine 06/18/17 06:00 Levothyroxine 25 mcg PO ACBREAKFAST 06/18/17 07:00 Pantoprazole [ProTONIX] 40 mg PO DAILY@0700 06/18/17 09:00 Consult to Physical Therapy [PT Evaluation and Treatment] [CONS] Routine Aspirin [Halfprin] 81 mg PO DAILY Digoxin [Lanoxin] 125 mcg PO DAILY Ferrous Sulfate 325 mg PO DAILY Gabapentin [Neurontin] 300 mg PO TID Metoprolol Tartrate [Lopressor] 100 mg PO BID Oxybutynin [Oxybutynin ER] 10 mg PO DAILY Potassium Chloride [Klor-Con M20] 20 meq PO DAILY SitaGLIPtin 50 mg PO DAILY 06/18/17 09:30 Consult to Occupational Therapy [OT Evaluation and Treatment] [CONS] Routine 06/18/17 18:00 Warfarin [Coumadin] 2 mg PO MoWeFr@1800 06/18/17 21:00 Simvastatin [Zocor] 10 mg PO BEDTIME 06/18/17 Breakfast [employer] [employer] Diet [DIET] 06/19/17 05:00 CBC WITH AUTO DIFF [HEME] DAILY CRP [C-REACTIVE PROTEIN] [CHEM] DAILY LACTIC ACID [CHEM] DAILY MG [MAGNESIUM] [CHEM] DAILY PRO B-TYPE NATRIUR PEPT,BNPPRO [CHEM] DAILY 06/19/17 05:11 BMP [BASIC METABOLIC PANEL,BMP] [CHEM] Routine 06/19/17 09:00 Metolazone [Zaroxolyn] 2.5 mg PO TuThSa@0900 06/19/17 18:00 Warfarin [Coumadin] 4 mg PO SuTuThSa@1800 06/20/17 05:00 CBC WITH AUTO DIFF [HEME] DAILY CRP [C-REACTIVE PROTEIN] [CHEM] DAILY LACTIC ACID [CHEM] DAILY MG [MAGNESIUM] [CHEM] DAILY PRO B-TYPE NATRIUR PEPT,BNPPRO [CHEM] DAILY 06/20/17 05:11 BMP [BASIC METABOLIC PANEL,BMP] [CHEM] Routine 06/21/17 05:00 CBC WITH AUTO DIFF [HEME] DAILY CRP [C-REACTIVE PROTEIN] [CHEM] DAILY LACTIC ACID [CHEM] DAILY MG [MAGNESIUM] [CHEM] DAILY PRO B-TYPE NATRIUR PEPT,BNPPRO [CHEM] DAILY - Plan Plan:: Impression: Multiple complaints-->chest pain with associated SOB ---Query PNA; elevated WBCs ---CAD/CMP; LVEF unknown ---CHF-->reportedly adjustment of diuretic has led to fluid overload. ---A Fib on coumadin; subtherapeutic INR ---s/p PPM, VVI History of CVA ---Query embolic cf ischemic CKD stage 3; 2+ protein in UA Low Mg, 1.1 Low Na, 129 Chronic VTE/DVT Diabetes Mellitus type 2 HTN HLD Urinary Incontinence (urge and stress) Plan: Empiric ATB, Levoquin--renal dose Neb scheduled/prn Infectious work up Ischemic work up Diurese as tolerated; change from IVP to gtt 2 D echo re: LVEF Verify status of PPM, reportedly EOL Daily Labs Home meds DVT/GI prophylaxis Consult SW/PT/OT Disposition--->doubt that HH would be enough for patient's needs
[2017-06-18] MEDS ORDERED: Enoxaparin 30 MG/0.3 ML Syringe SUBCUT SCH (13:18)
[2017-06-18] MEDS ORDERED: Aluminum Hydroxide/Magnesium Hydroxide/Simethicone Susp 30 ML Cup PO ONE (15:50)
[2017-06-18] MEDS ORDERED: Warfarin 2 MG Tab PO SCH (18:00)
[2017-06-18] MEDS ORDERED: Furosemide 100 MG in Sodium Chloride 0.9% 90 ML IV SCH (19:45)
[2017-06-18] MEDS: Docusate Sodium 100 MG Cap PO SCH (20:49)
[2017-06-18] MEDS: Enoxaparin 30 MG/0.3 ML Syringe SUBCUT SCH (20:52)
[2017-06-18] MEDS: Simvastatin 10 MG Tab PO SCH (20:55)
[2017-06-18] MEDS: Temazepam 7.5 MG Cap PO PRN (22:37)
[2017-06-19] MEDS ORDERED: Metolazone 2.5 MG Tab PO SCH (09:00)
[2017-06-19] MEDS: Oxybutynin 5 MG Tab.ER PO SCH (09:23)
[2017-06-19] MEDS: Aspirin 81 MG Tab.EC PO SCH (09:24)
[2017-06-19] MEDS: Gabapentin 300 MG Cap PO SCH ×3 (09:24→21:01)
[2017-06-19] MEDS: Metoprolol Tartrate 100 MG Tab PO SCH ×2 (09:26→21:06)
[2017-06-19] MEDS: Digoxin 125 MCG Tab PO SCH (09:26)
[2017-06-19] MEDS: Ferrous Sulfate 325 MG Tab PO SCH (09:27)
[2017-06-19] MEDS: Potassium Chloride 20 MEQ Tab.ER PO SCH (09:28)
[2017-06-19] MEDS: Levothyroxine 25 MCG Tab PO SCH (10:12)
[2017-06-19] MEDS: Pantoprazole 40 MG Tab.CR PO SCH (10:12)
[2017-06-19] MEDS: Insulin Aspart 100 Units/ML 3 ML Pen SUBCUT SCH ×4 (10:12→21:03)
[2017-06-19] MEDS: SITAGLIPTIN 50 MG PO SCH ×2 (11:31→19:34)
--- NOTE | 2017-06-19 17:18 | PCM.PN ---
- General Info Date of Service: 06/19/17 Admission Dx/Problem (Free Text): Hyponatremia Subjective Update: In to see Jenna. She is resting in bed. Lasix drip is infusing. Will discontinue at 1800 tonight and re-evaluate with AM labs. She has no complaints or concerns. Echo is back and is noted in plan. No concerns from patient. Nursing has no concerns. Functional Status: Reports: Pain Controlled, Tolerating Diet, Ambulating, Urinating. Denies: New Symptoms - Review of Systems General: Reports: Weakness, Fatigue. Denies: Fever, Malaise, Chills HEENT: Reports: No Symptoms. Denies: Ear Pain, Eye Pain, Sinus Congestion, Sore Throat, Rhinitis Pulmonary: Reports: Shortness of Breath, Cough. Denies: Pleuritic Chest Pain, Wheezing Cardiovascular: Reports: Dyspnea on Exertion. Denies: Chest Pain, Palpitations , Edema Gastrointestinal: Reports: No Symptoms. Denies: Abdominal Pain, Constipation, Diarrhea, Nausea, Vomiting Genitourinary: Reports: No Symptoms. Denies: Dysuria, Frequency, Burning, Pain Musculoskeletal: Reports: No Symptoms Skin: Reports: No Symptoms Neurological: Reports: No Symptoms Psychiatric: Reports: No Symptoms - Patient Data Vitals - Most Recent: Last Vital Signs Temp 98.2 F 06/19/17 08:17 Pulse 70 06/19/17 16:25 Resp 16 06/19/17 16:25 BP 114/67 06/19/17 16:25 Pulse Ox 95 06/19/17 16:25 Weight - Most Recent: 144 lb I&O - Last 24 Hours: Intake & Output 06/19/17 06/19/17 06/19/17 06:59 14:59 22:59 Intake Total 120 1060 Output Total 425 500 100 Balance -425 -380 960 Lab Results Last 24 Hours: Laboratory Results - last 24 hr 06/18/17 06/18/17 06/19/17 Range/Units 17:20 21:23 05:15 WBC 15.18 H (3.98-10.04) K/mm3 RBC 4.00 (3.98-5.22) M/mm3 Hgb 11.9 (11.2-15.7) gm/L Hct 35.5 (34.1-44.9) % MCV 88.8 (79.4-94.8) fl MCH 29.8 (25.6-32.2) pg MCHC 33.5 (32.2-35.5) g/dl RDW Std Deviation 45.8 (36.4-46.3) fL Plt Count 424 H (182-369) K/mm3 MPV 9.4 (9.4-12.3) fl Neut % (Auto) 54.8 (34.0-71.1) % Lymph % (Auto) 36.2 (19.3-51.7) % [place] % (Auto) 5.4 (4.7-12.5) % Eos % (Auto) 3.2 (0.7-5.8) Baso % (Auto) 0.4 (0.1-1.2) % Neut # (Auto) 8.32 H (1.56-6.13) K/mm3 Lymph # (Auto) 5.49 H (1.18-3.74) K/mm3 [place] # (Auto) 0.82 H (0.24-0.36) K/mm3 Eos # (Auto) 0.49 H (0.04-0.36) K/mm3 Baso # (Auto) 0.06 (0.01-0.08) K/mm3 Manual Slide Review Abnormal smear PT (8.0-13.0) SECONDS INR Sodium (136-145) mEq/L Potassium (3.5-5.1) mEq/L Chloride (98-107) mEq/L Carbon Dioxide (21-32) mEq/L Anion Gap (5-15) BUN (7-18) mg/dL Creatinine (0.55-1.02) mg/dL Est Cr Clr Drug Dosing mL/min Estimated GFR (MDRD) (>60) mL/min BUN/Creatinine Ratio (14-18) Glucose (83-115) mg/dL POC Glucose 233 H 104 (83-110) mg/dL Lactic Acid (0.4-2.0) mmol/L Calcium (8.5-10.1) mg/dL Magnesium (1.8-2.4) mg/dl C-Reactive Protein (<1.0) mg/dL NT-Pro-B Natriuret Pep (0-450) pg/mL 03/27/18 03/27/18 03/27/18 Range/Units 05:15 05:15 05:15 WBC (3.98-10.04) K/mm3 RBC (3.98-5.22) M/mm3 Hgb (11.2-15.7) gm/L Hct (34.1-44.9) % MCV (79.4-94.8) fl MCH (25.6-32.2) pg MCHC (32.2-35.5) g/dl RDW Std Deviation (36.4-46.3) fL Plt Count (182-369) K/mm3 MPV (9.4-12.3) fl Neut % (Auto) (34.0-71.1) % Lymph % (Auto) (19.3-51.7) % [place] % (Auto) (4.7-12.5) % Eos % (Auto) (0.7-5.8) Baso % (Auto) (0.1-1.2) % Neut # (Auto) (1.56-6.13) K/mm3 Lymph # (Auto) (1.18-3.74) K/mm3 [place] # (Auto) (0.24-0.36) K/mm3 Eos # (Auto) (0.04-0.36) K/mm3 Baso # (Auto) (0.01-0.08) K/mm3 Manual Slide Review PT (8.0-13.0) SECONDS INR Sodium (136-145) mEq/L Potassium (3.5-5.1) mEq/L Chloride (98-107) mEq/L Carbon Dioxide (21-32) mEq/L Anion Gap (5-15) BUN (7-18) mg/dL Creatinine (0.55-1.02) mg/dL Est Cr Clr Drug Dosing mL/min Estimated GFR (MDRD) (>60) mL/min BUN/Creatinine Ratio (14-18) Glucose (83-115) mg/dL POC Glucose (83-110) mg/dL Lactic Acid 1.4 (0.4-2.0) mmol/L Calcium (8.5-10.1) mg/dL Magnesium 1.9 (1.8-2.4) mg/dl C-Reactive Protein 1.6 H* (<1.0) mg/dL NT-Pro-B Natriuret Pep 5015 H (0-450) pg/mL 06/19/17 06/19/17 06/19/17 Range/Units 05:18 06:19 11:02 WBC (3.98-10.04) K/mm3 RBC (3.98-5.22) M/mm3 Hgb (11.2-15.7) gm/L Hct (34.1-44.9) % MCV (79.4-94.8) fl MCH (25.6-32.2) pg MCHC (32.2-35.5) g/dl RDW Std Deviation (36.4-46.3) fL Plt Count (182-369) K/mm3 MPV (9.4-12.3) fl Neut % (Auto) (34.0-71.1) % Lymph % (Auto) (19.3-51.7) % [place] % (Auto) (4.7-12.5) % Eos % (Auto) (0.7-5.8) Baso % (Auto) (0.1-1.2) % Neut # (Auto) (1.56-6.13) K/mm3 Lymph # (Auto) (1.18-3.74) K/mm3 [place] # (Auto) (0.24-0.36) K/mm3 Eos # (Auto) (0.04-0.36) K/mm3 Baso # (Auto) (0.01-0.08) K/mm3 Manual Slide Review PT (8.0-13.0) SECONDS INR Sodium 130 L (136-145) mEq/L Potassium 4.5 (3.5-5.1) mEq/L Chloride 92 L (98-107) mEq/L Carbon Dioxide 30 (21-32) mEq/L Anion Gap 12.5 (5-15) BUN 39 H (7-18) mg/dL Creatinine 1.8 H (0.55-1.02) mg/dL Est Cr Clr Drug Dosing 15.99 mL/min Estimated GFR (MDRD) 26 (>60) mL/min BUN/Creatinine Ratio 21.7 H (14-18) Glucose 109 (83-115) mg/dL POC Glucose 123 H 86 (83-110) mg/dL Lactic Acid (0.4-2.0) mmol/L Calcium 8.7 (8.5-10.1) mg/dL Magnesium (1.8-2.4) mg/dl C-Reactive Protein (<1.0) mg/dL NT-Pro-B Natriuret Pep (0-450) pg/mL 06/19/17 Range/Units 14:54 WBC (3.98-10.04) K/mm3 RBC (3.98-5.22) M/mm3 Hgb (11.2-15.7) gm/L Hct (34.1-44.9) % MCV (79.4-94.8) fl MCH (25.6-32.2) pg MCHC (32.2-35.5) g/dl RDW Std Deviation (36.4-46.3) fL Plt Count (182-369) K/mm3 MPV (9.4-12.3) fl Neut % (Auto) (34.0-71.1) % Lymph % (Auto) (19.3-51.7) % [place] % (Auto) (4.7-12.5) % Eos % (Auto) (0.7-5.8) Baso % (Auto) (0.1-1.2) % Neut # (Auto) (1.56-6.13) K/mm3 Lymph # (Auto) (1.18-3.74) K/mm3 [place] # (Auto) (0.24-0.36) K/mm3 Eos # (Auto) (0.04-0.36) K/mm3 Baso # (Auto) (0.01-0.08) K/mm3 Manual Slide Review PT 16.9 H (8.0-13.0) SECONDS INR 1.57 Sodium (136-145) mEq/L Potassium (3.5-5.1) mEq/L Chloride (98-107) mEq/L Carbon Dioxide (21-32) mEq/L Anion Gap (5-15) BUN (7-18) mg/dL Creatinine (0.55-1.02) mg/dL Est Cr Clr Drug Dosing mL/min Estimated GFR (MDRD) (>60) mL/min BUN/Creatinine Ratio (14-18) Glucose (83-115) mg/dL POC Glucose (83-110) mg/dL Lactic Acid (0.4-2.0) mmol/L Calcium (8.5-10.1) mg/dL Magnesium (1.8-2.4) mg/dl C-Reactive Protein (<1.0) mg/dL NT-Pro-B Natriuret Pep (0-450) pg/mL Jason Results Last 24 Hours: Microbiology 06/17/17 18:06 Urine Culture - Preliminary Urine, Clean Catch 06/17/17 23:50 Respiratory Virus Panel (PCR) - Final Nasopharyngeal Swab 06/17/17 18:51 Aerobic Blood Culture - Preliminary Blood - Venous - Lab Draw NO GROWTH AFTER 1 DAY Anaerobic Blood Culture - Preliminary NO GROWTH AFTER 1 DAY 06/17/17 18:43 Aerobic Blood Culture - Preliminary Blood - Venous NO GROWTH AFTER 1 DAY Anaerobic Blood Culture - Preliminary NO GROWTH AFTER 1 DAY Med Orders - Current: Current Medications Acetaminophen (Tylenol) 650 mg PO Q6H PRN PRN Reason: Pain/Fever Last Admin: 06/18/17 06:46 Dose: 650 mg Aspirin (Halfprin) 81 mg PO DAILY [facility] Last Admin: 06/19/17 09:24 Dose: 81 mg Dextrose/Water (Dextrose 50% In Water) 50 ml IVPUSH ASDIRECTED PRN PRN Reason: Hypoglycemia Digoxin (Lanoxin) 125 mcg PO DAILY [facility] Last Admin: 06/19/17 09:26 Dose: 125 mcg Docusate Sodium (Colace) 100 mg PO BEDTIME [facility] Last Admin: 06/18/17 20:49 Dose: 100 mg Enoxaparin Sodium (Lovenox) 30 mg SUBCUT Q24H [facility] Last Admin: 06/18/17 20:52 Dose: 30 mg Ferrous Sulfate (Ferrous Sulfate) 325 mg PO DAILY [facility] Last Admin: 06/19/17 09:27 Dose: 325 mg Gabapentin (Neurontin) 300 mg PO TID [facility] Last Admin: 06/19/17 14:44 Dose: 300 mg Hydralazine HCl (Apresoline) 20 mg IVPUSH Q6H PRN PRN Reason: Hypertension Levofloxacin/Dextrose 750 mg/ (Premix) 150 mls @ 100 mls/hr IV Q48H [facility] Last Admin: 06/18/17 00:38 Dose: 100 mls/hr Furosemide 100 mg/ Sodium (Chloride) 100 mls @ 4 mls/hr IV TITRATE [facility]; Protocol Last Admin: 06/18/17 20:49 Dose: 4 mls/hr Insulin Aspart (Novolog) 0 unit SUBCUT QIDACANDBED [facility]; Protocol Last Admin: 06/19/17 11:17 Dose: Not Given Levothyroxine Sodium (Levothyroxine) 25 mcg PO ACBREAKFAST [facility] Last Admin: 06/19/17 10:12 Dose: Not Given Metolazone (Zaroxolyn) 2.5 mg PO TuThSa@0900 [facility] Last Admin: 06/19/17 09:25 Dose: 2.5 mg Metoprolol Tartrate (Lopressor) 100 mg PO BID [facility] Last Admin: 06/19/17 09:26 Dose: 100 mg Oxybutynin Chloride (Oxybutynin Er) 10 mg PO DAILY [facility] Last Admin: 06/19/17 09:23 Dose: 10 mg Pantoprazole Sodium (Protonix) 40 mg PO DAILY@0700 [facility] Last Admin: 06/19/17 10:12 Dose: Not Given Potassium Chloride (Klor-Con M20) 20 meq PO DAILY [facility] Last Admin: 06/19/17 09:28 Dose: 20 meq Simvastatin (Zocor) 10 mg PO BEDTIME [facility] Last Admin: 06/18/17 20:55 Dose: 10 mg Temazepam (Restoril) 7.5 mg PO BEDTIME PRN PRN Reason: Insomnia Last Admin: 06/18/17 22:37 Dose: 7.5 mg Warfarin Sodium (Pharmacy To Dose - Warfarin) 1 dose .XX ASDIRECTED [facility] Warfarin Sodium (Coumadin) 5 mg PO ONETIME ONE Stop: 06/19/17 18:01 Discontinued Medications Al Hydroxide/Mg Hydroxide (Mag-Al Plus) 15 ml PO ONETIME ONE Stop: 06/18/17 15:51 Last Admin: 06/18/17 15:51 Dose: 15 ml Enoxaparin Sodium (Lovenox) 40 mg SUBCUT Q24H [facility] Last Admin: 06/17/17 22:30 Dose: 40 mg Enoxaparin Sodium (Lovenox) 30 mg SUBCUT Q24H [facility] Furosemide (Lasix) 40 mg IVPUSH NOW ONE Stop: 06/17/17 19:03 Last Admin: 06/17/17 19:20 Dose: 40 mg Sodium Chloride (Normal Saline) 1,000 mls @ 150 mls/hr IV ASDIRECTED [facility] Last Admin: 06/17/17 18:08 Dose: 150 mls/hr Magnesium Sulfate 4 gm/ Premix 100 mls @ 50 mls/hr IV ONETIME ONE Stop: 06/17/17 21:47 Last Admin: 06/17/17 20:03 Dose: Not Given Magnesium Sulfate 2 gm/ Premix 50 mls @ 25 mls/hr IV ONETIME ONE Stop: 06/17/17 22:01 Last Admin: 06/17/17 20:11 Dose: 25 mls/hr Magnesium Sulfate 2 gm/ Premix 50 mls @ 25 mls/hr IV ONETIME ONE Stop: 06/17/17 22:02 Last Admin: 06/17/17 22:29 Dose: 25 mls/hr Non-Formulary Medication (Sitagliptin) 50 mg PO DAILY [facility] Last Admin: 06/19/17 11:31 Dose: Not Given Ondansetron HCl (Zofran) 4 mg IVPUSH ONETIME ONE Stop: 06/17/17 17:58 Last Admin: 06/17/17 18:08 Dose: 4 mg Warfarin Sodium (Coumadin) 2 mg PO MoWeFr@1800 [facility] Last Admin: 06/18/17 18:12 Dose: 2 mg Warfarin Sodium (Coumadin) 4 mg PO SuTuThSa@1800 [facility] - Exam Quality Assessment: Urine Catheter, DVT Prophylaxis. No: Supplemental Oxygen General: Alert, Oriented, Cooperative, No Acute Distress HEENT: Pupils Equal, Pupils Reactive, EOMI, Mucous Membr. Moist/[place] Neck: Supple, Trachea Midline, No JVD Lungs: Clear to Auscultation, Normal Respiratory Effort, Decreased Breath Sounds. No: Rhonchi, Wheezing Cardiovascular: Regular Rate, Regular Rhythm, Murmurs GI/Abdominal Exam: Normal Bowel Sounds, Soft, Non-Tender, No Organomegaly, No Distention, No Abnormal Bruit, No Mass, Pelvis Stable (Female) Exam: Deferred Back Exam: Normal Inspection, Full Range of Motion Extremities: Normal Inspection, Normal Range of Motion, Non-Tender, Normal Capillary Refill, Pedal Edema (trace bilateral feet ) Peripheral Pulses: 1+: Posterior Tibial (L), Posterior Tibial (R), Dorsalis Pedis (L), Dorsalis Pedis (R), 2+: Radial (L), Radial (R) Skin: Warm, Dry, Intact Neurological: No New Focal Deficit Psy/Mental Status: Alert, Normal Affect, Normal Mood - Problem List & Annotations (1) Acute exacerbation of congestive heart failure SNOMED Code(s): 44657091 Code(s): I50.9 - HEART FAILURE, UNSPECIFIED Status: Acute Priority: High Current Visit: Yes Qualifiers: Heart failure type: diastolic Qualified Code(s): I50.33 - Acute on chronic diastolic (congestive) heart failure (2) Chronic atrial fibrillation SNOMED Code(s): 121158203 Code(s): I48.2 - CHRONIC ATRIAL FIBRILLATION Status: Chronic Priority: Medium Current Visit: Yes (3) Hyponatremia with decreased serum osmolality SNOMED Code(s): 807868624 Code(s): E87.1 - HYPO-OSMOLALITY AND HYPONATREMIA Status: Acute Priority : High Current Visit: Yes (4) CKD (chronic kidney disease) stage 3, GFR 30-59 ml/min SNOMED Code(s): 365621287 Code(s): N18.3 - CHRONIC KIDNEY DISEASE, STAGE 3 (MODERATE) Status: Chronic Current Visit: No (5) Cardiomyopathy SNOMED Code(s): 34099288 Code(s): I42.9 - CARDIOMYOPATHY, UNSPECIFIED Status: Chronic Priority: Medium Current Visit: No Qualifiers: Cardiomyopathy type: unspecified Qualified Code(s): I42.9 - Cardiomyopathy , unspecified (6) Diabetes mellitus SNOMED Code(s): 93641698 Code(s): E11.9 - TYPE 2 DIABETES MELLITUS WITHOUT COMPLICATIONS Status: Chronic Priority: Medium Current Visit: Yes Qualifiers: Diabetes mellitus type: type 2 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 exterminator insulin use: unspecified penitentiary insulin use status Diabetes mellitus complication status : without complication Qualified Code(s): E11.9 - Type 2 diabetes mellitus without complications - Problem List Review Problem List Initiated/Reviewed/Updated: Yes - My Orders Last 24 Hours: My Active Orders 06/19/17 14:30 Warfarin Pharmacy to Dose [Pharmacy to Dose - Warfarin] 1 dose .XX ASDIRECTED 06/19/17 18:00 Warfarin [Coumadin] 5 mg PO ONETIME ONE - Plan Plan:: I/P: Acute: Exacerbation of CHF -Respiratory distress in ED -Per ED note was recently decreased from 80 mg lasix BID to 40mg in AM and 20mg in PM -Hypertensive on floor arrival -BNP 5457-->6149-->5457 -Lasix drip- Discontinue tonight at 1800 -Damon catheter for monitoring I&O -Recheck AM BNP and examine pt. - may need to continue drip -Will hold off 2 gram sodium diet as sodium is low -Will hold off fluid restriction for now as she appears somewhat dehydrated -Heart failure education -Titrate O2 as needed -Echo obtained 06/18/17 -LVEF 30-35% -Moderately decreased left ventricular systolic function -Mild concentric left ventricular hypertrophy -Restrictive (Grade 3) pattern of diastolic filling -Global mild hypokinesis. Septal movement is paradoxical and may be due to RV pacing of RV overload -Moderate Aortic valve stenosis -Mild aortic valve regurgitation -Inferior vena cava is normal sized with respiratory size variation greater than 50% -No significant change from 11/16/15 -Moderate biatrial dilation -Respiratory viral panel, Influenza, Blood cultures, urine cultures, mycoplasma pneumonia - all negative -Repeat CXR on 06/20/17 Renal insufficiency, acute -Baseline appears to be eGFR very low to upper 40's -BUN 29-->31-->39 -Creatinine 1.1-->1.3-->1.8 -eGFR 47-->39-->26 -Was on lasix drip. Will hold until tomorrow and re-evaluate -Monitor need for IV fluids - balance with worsening CHF Hyponatremia -Sodium 130 in ED -Baseline from all prior visits appears to be 129-131 -Good oral intake reported by nursing -Monitor AM labs Subtheraputic INR -INR 1.29-->1.26-->1.57 -Pharmacy reports some discrepancy in how patient is taking warfarin -Pharmacy to dose warfarin -Lovenox until INR within therapeutic range -Will need outpatient follow-up Chronic: Impaired vision Angina Hx/o Blood clots/VTE/PE on coumadin CHF Heart Murmur HLD HTN Hx/o [place] Pacemaker GERD Arthritis Osteoporosis Hx/o CVA Type II DM Hx/o Appendecomty Hx/o Cholecystectomy Plan: Admit to medical floor on telemetry for discharge planning Pt/OT Home medications as ordered Other orders as indicated above Routine AM labs GI prophylaxis: Pepcid DVT/PE prophylaxis: On warfarin - increasing dose to achieve therapeutic INR Code status: DNR/DNI; PCP: Dr. Chino at [facility]
[2017-06-19] MEDS ORDERED: Warfarin 5 MG Tab PO ONE (18:00)
[2017-06-19] MEDS ORDERED: Warfarin 4 MG Tab PO SCH (18:00)
[2017-06-19] MEDS: Enoxaparin 30 MG/0.3 ML Syringe SUBCUT SCH (21:01)
[2017-06-19] MEDS: Docusate Sodium 100 MG Cap PO SCH (21:02)
[2017-06-19] MEDS: Simvastatin 10 MG Tab PO SCH (21:02)
[2017-06-19] MEDS: Levofloxacin/Dextrose 5%-Water 750 MG in Premix Bag 1 BAG IV SCH (21:04)
[2017-06-19] MEDS: Temazepam 7.5 MG Cap PO PRN (23:03)
[2017-06-20] MEDS: Insulin Aspart 100 Units/ML 3 ML Pen SUBCUT SCH ×4 (06:12→21:49)
[2017-06-20] MEDS: Pantoprazole 40 MG Tab.CR PO SCH (06:33)
[2017-06-20] MEDS: Levothyroxine 25 MCG Tab PO SCH (06:33)
[2017-06-20] MEDS ORDERED: Magnesium Hydroxide 400 MG/5 ML Susp 30 ML Cup PO PRN (08:20)
[2017-06-20] MEDS: Digoxin 125 MCG Tab PO SCH (08:27)
[2017-06-20] MEDS: Potassium Chloride 20 MEQ Tab.ER PO SCH (08:27)
[2017-06-20] MEDS: Oxybutynin 5 MG Tab.ER PO SCH (08:27)
[2017-06-20] MEDS: Gabapentin 300 MG Cap PO SCH ×3 (08:28→20:23)
[2017-06-20] MEDS: Ferrous Sulfate 325 MG Tab PO SCH (08:28)
[2017-06-20] MEDS: Aspirin 81 MG Tab.EC PO SCH (08:28)
[2017-06-20] MEDS: Metoprolol Tartrate 100 MG Tab PO SCH ×2 (08:28→20:24)
--- NOTE | 2017-06-20 09:45 | CR ---
Chest: Two views of the chest were obtained. Comparison: Prior chest x-ray of 06/17/17. Heart is enlarged. Pacemaker is noted. Lungs are clear with no acute parenchymal densities. Pulmonary vessels remain minimally increased. Bony structures are grossly intact. Impression: 1. Cardiomegaly and minimal pulmonary vascular prominence. No significant change is seen from previous study when allowing for differences in technique. Diagnostic code #3
--- NOTE | 2017-06-20 11:41 | PCM.PN ---
- General Info Date of Service: 06/20/17 Admission Dx/Problem (Free Text): Hyponatremia Subjective Update: In to see Jenna. She is resting in bed. Lasix drip is discontinued. She has no complaints or concerns. Nursing states she has been weaker than usual today, most likely due to the drop in her sodium. Will treat with Thermotabs and monitor. Functional Status: Reports: Pain Controlled, Tolerating Diet, Ambulating, Urinating - Review of Systems General: Reports: Weakness, Fatigue. Denies: Malaise, Chills HEENT: Reports: No Symptoms Pulmonary: Reports: Shortness of Breath, Cough. Denies: Pleuritic Chest Pain, Wheezing Cardiovascular: Reports: Dyspnea on Exertion. Denies: Chest Pain, Palpitations , Edema Gastrointestinal: Reports: No Symptoms. Denies: Abdominal Pain, Constipation, Diarrhea, Nausea, Vomiting Genitourinary: Reports: No Symptoms. Denies: Dysuria, Frequency, Burning, Pain Musculoskeletal: Reports: No Symptoms Skin: Reports: No Symptoms Neurological: Reports: No Symptoms Psychiatric: Reports: No Symptoms - Patient Data Vitals - Most Recent: Last Vital Signs Temp 98.1 F 06/20/17 07:21 Pulse 74 06/20/17 08:28 Resp 14 06/20/17 07:21 BP 117/70 06/20/17 08:28 Pulse Ox 95 06/20/17 08:26 Weight - Most Recent: 146 lb 8 oz I&O - Last 24 Hours: Intake & Output 06/19/17 06/20/17 06/20/17 22:59 06:59 14:59 Intake Total 1300 785 360 Output Total 500 400 300 Balance 800 385 60 Lab Results Last 24 Hours: Laboratory Results - last 24 hr 06/19/17 06/19/17 06/19/17 Range/Units 14:54 17:17 20:57 WBC (3.98-10.04) K/mm3 RBC (3.98-5.22) M/mm3 Hgb (11.2-15.7) gm/L Hct (34.1-44.9) % MCV (79.4-94.8) fl MCH (25.6-32.2) pg MCHC (32.2-35.5) g/dl RDW Std Deviation (36.4-46.3) fL Plt Count (182-369) K/mm3 MPV (9.4-12.3) fl Neut % (Auto) (34.0-71.1) % Lymph % (Auto) (19.3-51.7) % [place] % (Auto) (4.7-12.5) % Eos % (Auto) (0.7-5.8) Baso % (Auto) (0.1-1.2) % Neut # (Auto) (1.56-6.13) K/mm3 Lymph # (Auto) (1.18-3.74) K/mm3 [place] # (Auto) (0.24-0.36) K/mm3 Eos # (Auto) (0.04-0.36) K/mm3 Baso # (Auto) (0.01-0.08) K/mm3 Manual Slide Review PT 16.9 H (8.0-13.0) SECONDS INR 1.57 Sodium (136-145) mEq/L Potassium (3.5-5.1) mEq/L Chloride (98-107) mEq/L Carbon Dioxide (21-32) mEq/L Anion Gap (5-15) BUN (7-18) mg/dL Creatinine (0.55-1.02) mg/dL Est Cr Clr Drug Dosing mL/min Estimated GFR (MDRD) (>60) mL/min BUN/Creatinine Ratio (14-18) Glucose (83-115) mg/dL POC Glucose 109 166 H (83-110) mg/dL Lactic Acid (0.4-2.0) mmol/L Calcium (8.5-10.1) mg/dL Magnesium (1.8-2.4) mg/dl C-Reactive Protein (<1.0) mg/dL NT-Pro-B Natriuret Pep (0-450) pg/mL Digoxin (0.9-2.0) ng/mL 06/20/17 06/20/17 06/20/17 Range/Units 04:45 04:45 04:45 WBC 15.42 H (3.98-10.04) K/mm3 RBC 3.59 L (3.98-5.22) M/mm3 Hgb 10.5 L (11.2-15.7) gm/L Hct 32.0 L (34.1-44.9) % MCV 89.1 (79.4-94.8) fl MCH 29.2 (25.6-32.2) pg MCHC 32.8 (32.2-35.5) g/dl RDW Std Deviation 45.3 (36.4-46.3) fL Plt Count 379 H (182-369) K/mm3 MPV 9.4 (9.4-12.3) fl Neut % (Auto) 47.4 (34.0-71.1) % Lymph % (Auto) 41.9 (19.3-51.7) % [place] % (Auto) 6.7 (4.7-12.5) % Eos % (Auto) 3.2 (0.7-5.8) Baso % (Auto) 0.3 (0.1-1.2) % Neut # (Auto) 7.32 H (1.56-6.13) K/mm3 Lymph # (Auto) 6.46 H (1.18-3.74) K/mm3 [place] # (Auto) 1.04 H (0.24-0.36) K/mm3 Eos # (Auto) 0.49 H (0.04-0.36) K/mm3 Baso # (Auto) 0.04 (0.01-0.08) K/mm3 Manual Slide Review Abnormal smear PT (8.0-13.0) SECONDS INR Sodium (136-145) mEq/L Potassium (3.5-5.1) mEq/L Chloride (98-107) mEq/L Carbon Dioxide (21-32) mEq/L Anion Gap (5-15) BUN (7-18) mg/dL Creatinine (0.55-1.02) mg/dL Est Cr Clr Drug Dosing mL/min Estimated GFR (MDRD) (>60) mL/min BUN/Creatinine Ratio (14-18) Glucose (83-115) mg/dL POC Glucose (83-110) mg/dL Lactic Acid (0.4-2.0) mmol/L Calcium (8.5-10.1) mg/dL Magnesium 1.6 L (1.8-2.4) mg/dl C-Reactive Protein 1.1 H* (<1.0) mg/dL NT-Pro-B Natriuret Pep 3535 H (0-450) pg/mL Digoxin (0.9-2.0) ng/mL 06/20/17 06/20/17 06/20/17 Range/Units 04:45 04:45 04:45 WBC (3.98-10.04) K/mm3 RBC (3.98-5.22) M/mm3 Hgb (11.2-15.7) gm/L Hct (34.1-44.9) % MCV (79.4-94.8) fl MCH (25.6-32.2) pg MCHC (32.2-35.5) g/dl RDW Std Deviation (36.4-46.3) fL Plt Count (182-369) K/mm3 MPV (9.4-12.3) fl Neut % (Auto) (34.0-71.1) % Lymph % (Auto) (19.3-51.7) % [place] % (Auto) (4.7-12.5) % Eos % (Auto) (0.7-5.8) Baso % (Auto) (0.1-1.2) % Neut # (Auto) (1.56-6.13) K/mm3 Lymph # (Auto) (1.18-3.74) K/mm3 [place] # (Auto) (0.24-0.36) K/mm3 Eos # (Auto) (0.04-0.36) K/mm3 Baso # (Auto) (0.01-0.08) K/mm3 Manual Slide Review PT 21.2 H (8.0-13.0) SECONDS INR 1.97 Sodium 125 L (136-145) mEq/L Potassium 4.7 (3.5-5.1) mEq/L Chloride 89 L (98-107) mEq/L Carbon Dioxide 31 (21-32) mEq/L Anion Gap 9.7 (5-15) BUN 54 H (7-18) mg/dL Creatinine 1.9 H (0.55-1.02) mg/dL Est Cr Clr Drug Dosing 15.15 mL/min Estimated GFR (MDRD) 25 (>60) mL/min BUN/Creatinine Ratio 28.4 H (14-18) Glucose 106 (83-115) mg/dL POC Glucose (83-110) mg/dL Lactic Acid 1.4 (0.4-2.0) mmol/L Calcium 8.0 L (8.5-10.1) mg/dL Magnesium (1.8-2.4) mg/dl C-Reactive Protein (<1.0) mg/dL NT-Pro-B Natriuret Pep (0-450) pg/mL Digoxin (0.9-2.0) ng/mL 06/20/17 06/20/17 06/20/17 Range/Units 04:45 06:04 11:27 WBC (3.98-10.04) K/mm3 RBC (3.98-5.22) M/mm3 Hgb (11.2-15.7) gm/L Hct (34.1-44.9) % MCV (79.4-94.8) fl MCH (25.6-32.2) pg MCHC (32.2-35.5) g/dl RDW Std Deviation (36.4-46.3) fL Plt Count (182-369) K/mm3 MPV (9.4-12.3) fl Neut % (Auto) (34.0-71.1) % Lymph % (Auto) (19.3-51.7) % [place] % (Auto) (4.7-12.5) % Eos % (Auto) (0.7-5.8) Baso % (Auto) (0.1-1.2) % Neut # (Auto) (1.56-6.13) K/mm3 Lymph # (Auto) (1.18-3.74) K/mm3 [place] # (Auto) (0.24-0.36) K/mm3 Eos # (Auto) (0.04-0.36) K/mm3 Baso # (Auto) (0.01-0.08) K/mm3 Manual Slide Review PT (8.0-13.0) SECONDS INR Sodium (136-145) mEq/L Potassium (3.5-5.1) mEq/L Chloride (98-107) mEq/L Carbon Dioxide (21-32) mEq/L Anion Gap (5-15) BUN (7-18) mg/dL Creatinine (0.55-1.02) mg/dL Est Cr Clr Drug Dosing mL/min Estimated GFR (MDRD) (>60) mL/min BUN/Creatinine Ratio (14-18) Glucose (83-115) mg/dL POC Glucose 114 H 195 H (83-110) mg/dL Lactic Acid (0.4-2.0) mmol/L Calcium (8.5-10.1) mg/dL Magnesium (1.8-2.4) mg/dl C-Reactive Protein (<1.0) mg/dL NT-Pro-B Natriuret Pep (0-450) pg/mL Digoxin 2.3 H (0.9-2.0) ng/mL Jason Results Last 24 Hours: Microbiology 06/17/17 18:06 Urine Culture - Preliminary Urine, Clean Catch 06/17/17 18:51 Aerobic Blood Culture - Preliminary Blood - Venous - Lab Draw NO GROWTH AFTER 2 DAYS Anaerobic Blood Culture - Preliminary NO GROWTH AFTER 2 DAYS 06/17/17 18:43 Aerobic Blood Culture - Preliminary Blood - Venous NO GROWTH AFTER 2 DAYS Anaerobic Blood Culture - Preliminary NO GROWTH AFTER 2 DAYS Med Orders - Current: Current Medications Acetaminophen (Tylenol) 650 mg PO Q6H PRN PRN Reason: Pain/Fever Last Admin: 06/18/17 06:46 Dose: 650 mg Aspirin (Halfprin) 81 mg PO DAILY [facility] Last Admin: 06/20/17 08:28 Dose: 81 mg Dextrose/Water (Dextrose 50% In Water) 50 ml IVPUSH ASDIRECTED PRN PRN Reason: Hypoglycemia Digoxin (Lanoxin) 125 mcg PO DAILY [facility] Last Admin: 06/20/17 08:27 Dose: 125 mcg Docusate Sodium (Colace) 100 mg PO BEDTIME [facility] Last Admin: 06/19/17 21:02 Dose: 100 mg Ferrous Sulfate (Ferrous Sulfate) 325 mg PO DAILY [facility] Last Admin: 06/20/17 08:28 Dose: 325 mg Gabapentin (Neurontin) 300 mg PO TID [facility] Last Admin: 06/20/17 08:28 Dose: 300 mg Hydralazine HCl (Apresoline) 20 mg IVPUSH Q6H PRN PRN Reason: Hypertension Insulin Aspart (Novolog) 0 unit SUBCUT QIDACANDBED [facility]; Protocol Last Admin: 06/20/17 06:12 Dose: Not Given Levofloxacin (Levaquin) 750 mg PO Q48H [facility] Levothyroxine Sodium (Levothyroxine) 25 mcg PO ACBREAKFAST [facility] Last Admin: 06/20/17 06:33 Dose: 25 mcg Magnesium Hydroxide (Milk Of Magnesia) 30 ml PO ONETIME PRN PRN Reason: Constipation Metolazone (Zaroxolyn) 2.5 mg PO TuThSa@0900 [facility] Last Admin: 06/19/17 09:25 Dose: 2.5 mg Metoprolol Tartrate (Lopressor) 100 mg PO BID [facility] Last Admin: 06/20/17 08:28 Dose: 100 mg Oral Electrolytes (Thermotabs) 2 each PO BID@1130,1400 [facility] Stop: 06/20/17 14:01 Oxybutynin Chloride (Oxybutynin Er) 10 mg PO DAILY [facility] Last Admin: 06/20/17 08:27 Dose: 10 mg Pantoprazole Sodium (Protonix) 40 mg PO DAILY@0700 [facility] Last Admin: 06/20/17 06:33 Dose: 40 mg Potassium Chloride (Klor-Con M20) 20 meq PO DAILY [facility] Last Admin: 06/20/17 08:27 Dose: 20 meq Simvastatin (Zocor) 10 mg PO BEDTIME [facility] Last Admin: 06/19/17 21:02 Dose: 10 mg Temazepam (Restoril) 7.5 mg PO BEDTIME PRN PRN Reason: Insomnia Last Admin: 06/19/17 23:03 Dose: 7.5 mg Warfarin Sodium (Pharmacy To Dose - Warfarin) 1 dose .XX ASDIRECTED [facility] Warfarin Sodium (Coumadin) 2 mg PO ONETIME ONE Stop: 06/20/17 18:01 Discontinued Medications Al Hydroxide/Mg Hydroxide (Mag-Al Plus) 15 ml PO ONETIME ONE Stop: 06/18/17 15:51 Last Admin: 06/18/17 15:51 Dose: 15 ml Enoxaparin Sodium (Lovenox) 40 mg SUBCUT Q24H [facility] Last Admin: 06/17/17 22:30 Dose: 40 mg Enoxaparin Sodium (Lovenox) 30 mg SUBCUT Q24H [facility] Enoxaparin Sodium (Lovenox) 30 mg SUBCUT Q24H [facility] Last Admin: 06/19/17 21:01 Dose: 30 mg Furosemide (Lasix) 40 mg IVPUSH NOW ONE Stop: 06/17/17 19:03 Last Admin: 06/17/17 19:20 Dose: 40 mg Sodium Chloride (Normal Saline) 1,000 mls @ 150 mls/hr IV ASDIRECTED [facility] Last Admin: 06/17/17 18:08 Dose: 150 mls/hr Magnesium Sulfate 4 gm/ Premix 100 mls @ 50 mls/hr IV ONETIME ONE Stop: 06/17/17 21:47 Last Admin: 06/17/17 20:03 Dose: Not Given Magnesium Sulfate 2 gm/ Premix 50 mls @ 25 mls/hr IV ONETIME ONE Stop: 06/17/17 22:01 Last Admin: 06/17/17 20:11 Dose: 25 mls/hr Magnesium Sulfate 2 gm/ Premix 50 mls @ 25 mls/hr IV ONETIME ONE Stop: 06/17/17 22:02 Last Admin: 06/17/17 22:29 Dose: 25 mls/hr Levofloxacin/Dextrose 750 mg/ (Premix) 150 mls @ 100 mls/hr IV Q48H [facility] Last Admin: 06/19/17 21:04 Dose: 100 mls/hr Furosemide 100 mg/ Sodium (Chloride) 100 mls @ 4 mls/hr IV TITRATE [facility]; Protocol Last Admin: 06/18/17 20:49 Dose: 4 mls/hr Non-Formulary Medication (Sitagliptin) 50 mg PO DAILY [facility] Last Admin: 06/19/17 19:34 Dose: Not Given Ondansetron HCl (Zofran) 4 mg IVPUSH ONETIME ONE Stop: 06/17/17 17:58 Last Admin: 06/17/17 18:08 Dose: 4 mg Warfarin Sodium (Coumadin) 2 mg PO MoWeFr@1800 [facility] Last Admin: 06/18/17 18:12 Dose: 2 mg Warfarin Sodium (Coumadin) 4 mg PO SuTuThSa@1800 [facility] Warfarin Sodium (Coumadin) 5 mg PO ONETIME ONE Stop: 06/19/17 18:01 Last Admin: 06/19/17 17:18 Dose: 5 mg - Exam Quality Assessment: Urine Catheter, DVT Prophylaxis. No: Supplemental Oxygen General: Alert, Oriented, Cooperative, No Acute Distress HEENT: Pupils Equal, Pupils Reactive, EOMI, Mucous Membr. Moist/[place] Neck: Supple, Trachea Midline, No JVD Lungs: Clear to Auscultation, Normal Respiratory Effort, Decreased Breath Sounds. No: Rhonchi, Wheezing Cardiovascular: Regular Rate, Regular Rhythm, Murmurs (systolic) GI/Abdominal Exam: Normal Bowel Sounds, Soft, Non-Tender, No Organomegaly, No Distention, No Abnormal Bruit, No Mass, Pelvis Stable (Female) Exam: Deferred Back Exam: Normal Inspection, Full Range of Motion Extremities: Normal Inspection, Normal Range of Motion, Non-Tender, Normal Capillary Refill, Pedal Edema (trace bilateral feet) Peripheral Pulses: 1+: Posterior Tibial (L), Posterior Tibial (R), Dorsalis Pedis (L), Dorsalis Pedis (R) Skin: Warm, Dry, Intact Neurological: No New Focal Deficit Psy/Mental Status: Alert, Normal Affect, Normal Mood - Problem List & Annotations (1) Acute exacerbation of congestive heart failure SNOMED Code(s): 85461956 Code(s): I50.9 - HEART FAILURE, UNSPECIFIED Status: Acute Priority: High Current Visit: Yes Qualifiers: Heart failure type: diastolic Qualified Code(s): I50.33 - Acute on chronic diastolic (congestive) heart failure (2) Hyponatremia with decreased serum osmolality SNOMED Code(s): 257305701 Code(s): E87.1 - HYPO-OSMOLALITY AND HYPONATREMIA Status: Acute Priority : High Current Visit: Yes (3) Chronic atrial fibrillation SNOMED Code(s): 003802077 Code(s): I48.2 - CHRONIC ATRIAL FIBRILLATION Status: Chronic Priority: Medium Current Visit: Yes (4) Diabetes mellitus SNOMED Code(s): 50737119 Code(s): E11.9 - TYPE 2 DIABETES MELLITUS WITHOUT COMPLICATIONS Status: Chronic Priority: Medium Current Visit: Yes Qualifiers: Diabetes mellitus type: type 2 Diabetes mellitus fpc insulin use: unspecified fpc insulin use status Diabetes mellitus complication status : without complication Qualified Code(s): E11.9 - Type 2 diabetes mellitus without complications (5) CKD (chronic kidney disease) stage 3, GFR 30-59 ml/min SNOMED Code(s): 141769353 Code(s): N18.3 - CHRONIC KIDNEY DISEASE, STAGE 3 (MODERATE) Status: Chronic Current Visit: No (6) Cardiomyopathy SNOMED Code(s): 80783707 Code(s): I42.9 - CARDIOMYOPATHY, UNSPECIFIED Status: Chronic Priority: Medium Current Visit: No Qualifiers: Cardiomyopathy type: unspecified Qualified Code(s): I42.9 - Cardiomyopathy , unspecified - Problem List Review Problem List Initiated/Reviewed/Updated: Yes - Plan Plan:: I/P: Acute: Exacerbation of CHF, Improving -Respiratory distress in ED -Per ED note was recently decreased from 80 mg lasix BID to 40mg in AM and 20mg in PM -Hypertensive on floor arrival--> stable now at 117/70 -BNP 5457-->6149-->5457-->3535 -Lasix drip- Discontinued -Damon catheter for monitoring I&O -Will hold off 2 gram sodium diet as sodium is low -Will hold off fluid restriction for now as she appears somewhat dehydrated -Heart failure education -Titrate O2 as needed -Echo obtained 06/18/17 -LVEF 30-35% -Moderately decreased left ventricular systolic function -Mild concentric left ventricular hypertrophy -Restrictive (Grade 3) pattern of diastolic filling -Global mild hypokinesis. Septal movement is paradoxical and may be due to RV pacing of RV overload -Moderate Aortic valve stenosis -Mild aortic valve regurgitation -Inferior vena cava is normal sized with respiratory size variation greater than 50% -No significant change from 11/16/15 -Moderate biatrial dilation -Respiratory viral panel, Influenza, Blood cultures, urine cultures, mycoplasma pneumonia - all negative -Repeat CXR on 06/20/17--> No changes, Lungs are clear, Cardiomegaly, minimal pulmonary vascular prominence per Dr. House Renal insufficiency, acute -Baseline appears to be eGFR very low to upper 40's -BUN 29-->31-->39-->54 -Creatinine 1.1-->1.3-->1.8-->1.9 -eGFR 47-->39-->26-->25 -Was on lasix drip. Will hold for now. -Monitor need for IV fluids - balance with worsening CHF Hyponatremia -Sodium 130 in ED-->125 today -Baseline from all prior visits appears to be 129-131 -Good oral intake reported by nursing -Monitor AM labs -Feeling weaker today per nursing-->will start on Thermotabs today BID, per Dr. Richardson Subtheraputic INR -INR 1.29-->1.26-->1.57-->1.97 -Pharmacy reports some discrepancy in how patient is taking warfarin -Pharmacy to dose warfarin -Lovenox until INR within therapeutic range--> Lovenox stopped today. 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 Chino at [facility]
[2017-06-20] MEDS: Potassium Chloride/Sodium Chloride Tab PO SCH ×2 (12:06→14:17)
[2017-06-20] MEDS ORDERED: Magnesium Sulfate/Water 2 GM in Premix Bag 1 BAG IV ONE (16:45)
[2017-06-20] MEDS ORDERED: Warfarin 2 MG Tab PO ONE (18:00)
--- NOTE | 2017-06-20 19:32 | PCM.SN ---
- Free Text/Narrative Note: 06/20/17 IV started 22 guage right forearm times 1 attempt. Kristie [employer]
[2017-06-20] MEDS: Simvastatin 10 MG Tab PO SCH (20:23)
[2017-06-20] MEDS: Docusate Sodium 100 MG Cap PO SCH (20:23)
[2017-06-21] MEDS ORDERED: Bisacodyl 10 MG Supp RECTAL PRN (05:30)
[2017-06-21] MEDS: Pantoprazole 40 MG Tab.CR PO SCH (06:12)
[2017-06-21] MEDS: Levothyroxine 25 MCG Tab PO SCH (06:12)
[2017-06-21] MEDS: Insulin Aspart 100 Units/ML 3 ML Pen SUBCUT SCH ×4 (06:13→21:16)
[2017-06-21] MEDS: Magnesium Hydroxide 400 MG/5 ML Susp 30 ML Cup PO PRN (06:22)
[2017-06-21] MEDS: Metoprolol Tartrate 100 MG Tab PO SCH ×2 (08:57→21:17)
[2017-06-21] MEDS: Ferrous Sulfate 325 MG Tab PO SCH (08:58)
[2017-06-21] MEDS: Digoxin 125 MCG Tab PO SCH (08:58)
[2017-06-21] MEDS: Potassium Chloride 20 MEQ Tab.ER PO SCH (08:58)
[2017-06-21] MEDS: Gabapentin 300 MG Cap PO SCH ×3 (08:58→21:20)
[2017-06-21] MEDS: Aspirin 81 MG Tab.EC PO SCH (08:59)
[2017-06-21] MEDS: Oxybutynin 5 MG Tab.ER PO SCH (08:59)
[2017-06-21] MEDS: Furosemide 100 MG in Sodium Chloride 0.9% 90 ML IV SCH (09:04)
--- NOTE | 2017-06-21 13:09 | PCM.PN ---
- General Info Date of Service: 06/21/17 Admission Dx/Problem (Free Text): Hyponatremia Subjective Update: In to see Jenna. She is resting in bed. Lasix drip has been restarted. She still feels like she has to go the restroom frequently, even with the urinary catheter in, so we will start bladder training today and adjust her medication. Suggested she see a urologist for this issue as well. No other concerns. Nursing has no concerns. Functional Status: Reports: Pain Controlled, Tolerating Diet, Ambulating, Urinating (crockett cath ) - Review of Systems General: Reports: Weakness (improving), Fatigue (improving). Denies: Malaise, Chills HEENT: Reports: No Symptoms Pulmonary: Reports: Shortness of Breath, Cough. Denies: Pleuritic Chest Pain, Wheezing Cardiovascular: Reports: Dyspnea on Exertion. Denies: Chest Pain, Palpitations , Edema Gastrointestinal: Reports: No Symptoms. Denies: Abdominal Pain, Constipation, Diarrhea, Nausea, Vomiting Genitourinary: Reports: Urgency. Denies: Dysuria, Frequency, Burning Musculoskeletal: Reports: No Symptoms Skin: Reports: No Symptoms Neurological: Reports: No Symptoms Psychiatric: Reports: No Symptoms - Patient Data Vitals - Most Recent: Last Vital Signs Temp 98.4 F 06/21/17 07:56 Pulse 70 06/21/17 08:58 Resp 20 06/21/17 07:56 BP 123/77 06/21/17 08:57 Pulse Ox 97 06/21/17 07:56 Weight - Most Recent: 148 lb 3.2 oz I&O - Last 24 Hours: Intake & Output 06/20/17 06/21/17 06/21/17 22:59 06:59 14:59 Intake Total 1480 150 360 Output Total 1025 850 279 Balance 455 -700 81 Lab Results Last 24 Hours: Laboratory Results - last 24 hr 06/17/17 06/20/17 06/20/17 Range/Units 18:06 17:11 20:20 WBC (3.98-10.04) K/mm3 RBC (3.98-5.22) M/mm3 Hgb (11.2-15.7) gm/L Hct (34.1-44.9) % MCV (79.4-94.8) fl MCH (25.6-32.2) pg MCHC (32.2-35.5) g/dl RDW Std Deviation (36.4-46.3) fL Plt Count (182-369) K/mm3 MPV (9.4-12.3) fl Neut % (Auto) (34.0-71.1) % Lymph % (Auto) (19.3-51.7) % Alexander % (Auto) (4.7-12.5) % Eos % (Auto) (0.7-5.8) Baso % (Auto) (0.1-1.2) % Neut # (Auto) (1.56-6.13) K/mm3 Lymph # (Auto) (1.18-3.74) K/mm3 Alexander # (Auto) (0.24-0.36) K/mm3 Eos # (Auto) (0.04-0.36) K/mm3 Baso # (Auto) (0.01-0.08) K/mm3 PT (8.0-13.0) SECONDS INR Sodium (136-145) mEq/L Potassium (3.5-5.1) mEq/L Chloride (98-107) mEq/L Carbon Dioxide (21-32) mEq/L Anion Gap (5-15) BUN (7-18) mg/dL Creatinine (0.55-1.02) mg/dL Est Cr Clr Drug Dosing mL/min Estimated GFR (MDRD) (>60) mL/min BUN/Creatinine Ratio (14-18) Glucose (83-115) mg/dL POC Glucose 154 H 154 H (83-110) mg/dL Lactic Acid (0.4-2.0) mmol/L Calcium (8.5-10.1) mg/dL Magnesium (1.8-2.4) mg/dl C-Reactive Protein (<1.0) mg/dL NT-Pro-B Natriuret Pep (0-450) pg/mL Urine Color Yellow (Yellow) 06/21/17 06/21/17 06/21/17 Range/Units 06:06 06:06 06:06 WBC 13.25 H (3.98-10.04) K/mm3 RBC 4.01 (3.98-5.22) M/mm3 Hgb 11.5 (11.2-15.7) gm/L Hct 35.4 (34.1-44.9) % MCV 88.3 (79.4-94.8) fl MCH 28.7 (25.6-32.2) pg MCHC 32.5 (32.2-35.5) g/dl RDW Std Deviation 45.3 (36.4-46.3) fL Plt Count 386 H (182-369) K/mm3 MPV 9.3 L (9.4-12.3) fl Neut % (Auto) 56.5 (34.0-71.1) % Lymph % (Auto) 31.8 (19.3-51.7) % Alexander % (Auto) 6.6 (4.7-12.5) % Eos % (Auto) 4.4 (0.7-5.8) Baso % (Auto) 0.2 (0.1-1.2) % Neut # (Auto) 7.49 H (1.56-6.13) K/mm3 Lymph # (Auto) 4.22 H (1.18-3.74) K/mm3 Alexander # (Auto) 0.87 H (0.24-0.36) K/mm3 Eos # (Auto) 0.58 H (0.04-0.36) K/mm3 Baso # (Auto) 0.02 (0.01-0.08) K/mm3 PT (8.0-13.0) SECONDS INR Sodium (136-145) mEq/L Potassium (3.5-5.1) mEq/L Chloride (98-107) mEq/L Carbon Dioxide (21-32) mEq/L Anion Gap (5-15) BUN (7-18) mg/dL Creatinine (0.55-1.02) mg/dL Est Cr Clr Drug Dosing mL/min Estimated GFR (MDRD) (>60) mL/min BUN/Creatinine Ratio (14-18) Glucose (83-115) mg/dL POC Glucose (83-110) mg/dL Lactic Acid (0.4-2.0) mmol/L Calcium (8.5-10.1) mg/dL Magnesium 2.5 H (1.8-2.4) mg/dl C-Reactive Protein 0.8 (<1.0) mg/dL NT-Pro-B Natriuret Pep 2825 H (0-450) pg/mL Urine Color (Yellow) 06/21/17 06/21/17 06/21/17 Range/Units 06:06 06:06 06:06 WBC (3.98-10.04) K/mm3 RBC (3.98-5.22) M/mm3 Hgb (11.2-15.7) gm/L Hct (34.1-44.9) % MCV (79.4-94.8) fl MCH (25.6-32.2) pg MCHC (32.2-35.5) g/dl RDW Std Deviation (36.4-46.3) fL Plt Count (182-369) K/mm3 MPV (9.4-12.3) fl Neut % (Auto) (34.0-71.1) % Lymph % (Auto) (19.3-51.7) % Alexander % (Auto) (4.7-12.5) % Eos % (Auto) (0.7-5.8) Baso % (Auto) (0.1-1.2) % Neut # (Auto) (1.56-6.13) K/mm3 Lymph # (Auto) (1.18-3.74) K/mm3 Alexander # (Auto) (0.24-0.36) K/mm3 Eos # (Auto) (0.04-0.36) K/mm3 Baso # (Auto) (0.01-0.08) K/mm3 PT 22.4 H (8.0-13.0) SECONDS INR 2.08 Sodium (136-145) mEq/L Potassium (3.5-5.1) mEq/L Chloride (98-107) mEq/L Carbon Dioxide (21-32) mEq/L Anion Gap (5-15) BUN (7-18) mg/dL Creatinine (0.55-1.02) mg/dL Est Cr Clr Drug Dosing mL/min Estimated GFR (MDRD) (>60) mL/min BUN/Creatinine Ratio (14-18) Glucose (83-115) mg/dL POC Glucose 108 (83-110) mg/dL Lactic Acid 1.4 (0.4-2.0) mmol/L Calcium (8.5-10.1) mg/dL Magnesium (1.8-2.4) mg/dl C-Reactive Protein (<1.0) mg/dL NT-Pro-B Natriuret Pep (0-450) pg/mL Urine Color (Yellow) 06/21/17 06/21/17 Range/Units 06:06 10:58 WBC (3.98-10.04) K/mm3 RBC (3.98-5.22) M/mm3 Hgb (11.2-15.7) gm/L Hct (34.1-44.9) % MCV (79.4-94.8) fl MCH (25.6-32.2) pg MCHC (32.2-35.5) g/dl RDW Std Deviation (36.4-46.3) fL Plt Count (182-369) K/mm3 MPV (9.4-12.3) fl Neut % (Auto) (34.0-71.1) % Lymph % (Auto) (19.3-51.7) % Alexander % (Auto) (4.7-12.5) % Eos % (Auto) (0.7-5.8) Baso % (Auto) (0.1-1.2) % Neut # (Auto) (1.56-6.13) K/mm3 Lymph # (Auto) (1.18-3.74) K/mm3 Alexander # (Auto) (0.24-0.36) K/mm3 Eos # (Auto) (0.04-0.36) K/mm3 Baso # (Auto) (0.01-0.08) K/mm3 PT (8.0-13.0) SECONDS INR Sodium 130 L (136-145) mEq/L Potassium 4.6 (3.5-5.1) mEq/L Chloride 92 L (98-107) mEq/L Carbon Dioxide 29 (21-32) mEq/L Anion Gap 13.6 (5-15) BUN 40 H (7-18) mg/dL Creatinine 1.2 H (0.55-1.02) mg/dL Est Cr Clr Drug Dosing 23.98 mL/min Estimated GFR (MDRD) 42 (>60) mL/min BUN/Creatinine Ratio 33.3 H (14-18) Glucose 114 (83-115) mg/dL POC Glucose 197 H (83-110) mg/dL Lactic Acid (0.4-2.0) mmol/L Calcium 8.9 (8.5-10.1) mg/dL Magnesium (1.8-2.4) mg/dl C-Reactive Protein (<1.0) mg/dL NT-Pro-B Natriuret Pep (0-450) pg/mL Urine Color (Yellow) Jason Results Last 24 Hours: Microbiology 06/17/17 18:06 Urine Culture - Final Urine, Clean Catch 06/17/17 18:51 Aerobic Blood Culture - Preliminary Blood - Venous - Lab Draw NO GROWTH AFTER 3 DAYS Anaerobic Blood Culture - Preliminary NO GROWTH AFTER 3 DAYS 06/17/17 18:43 Aerobic Blood Culture - Preliminary Blood - Venous NO GROWTH AFTER 3 DAYS Anaerobic Blood Culture - Preliminary NO GROWTH AFTER 3 DAYS Med Orders - Current: Current Medications Acetaminophen (Tylenol) 650 mg PO Q6H PRN PRN Reason: Pain/Fever Last Admin: 06/18/17 06:46 Dose: 650 mg Aspirin (Halfprin) 81 mg PO DAILY [facility] Last Admin: 06/21/17 08:59 Dose: 81 mg Bisacodyl (Dulcolax) 10 mg RECTAL DAILY PRN PRN Reason: Constipation Last Admin: 06/21/17 06:15 Dose: 10 mg Dextrose/Water (Dextrose 50% In Water) 50 ml IVPUSH ASDIRECTED PRN PRN Reason: Hypoglycemia Docusate Sodium (Colace) 100 mg PO BEDTIME [facility] Last Admin: 06/20/17 20:23 Dose: 100 mg Ferrous Sulfate (Ferrous Sulfate) 325 mg PO DAILY [facility] Last Admin: 06/21/17 08:58 Dose: 325 mg Gabapentin (Neurontin) 300 mg PO TID [facility] Last Admin: 06/21/17 08:58 Dose: 300 mg Hydralazine HCl (Apresoline) 20 mg IVPUSH Q6H PRN PRN Reason: Hypertension Furosemide 100 mg/ Sodium (Chloride) 100 mls @ 4 mls/hr IV TITRATE [facility] Last Admin: 06/21/17 09:04 Dose: 4 mg/hr, 4 mls/hr Insulin Aspart (Novolog) 0 unit SUBCUT QIDACANDBED [facility]; Protocol Last Admin: 06/21/17 11:17 Dose: 1 units Levofloxacin (Levaquin) 750 mg PO Q48H [facility] Levothyroxine Sodium (Levothyroxine) 25 mcg PO ACBREAKFAST [facility] Last Admin: 06/21/17 06:12 Dose: 25 mcg Magnesium Hydroxide (Milk Of Magnesia) 30 ml PO DAILY PRN PRN Reason: Constipation Last Admin: 06/21/17 06:22 Dose: 30 ml Metoprolol Tartrate (Lopressor) 100 mg PO BID [facility] Last Admin: 06/21/17 08:57 Dose: 100 mg Oxybutynin Chloride (Oxybutynin Er) 10 mg PO DAILY [facility] Last Admin: 06/21/17 08:59 Dose: 10 mg Pantoprazole Sodium (Protonix) 40 mg PO DAILY@0700 [facility] Last Admin: 06/21/17 06:12 Dose: 40 mg Potassium Chloride (Klor-Con M20) 20 meq PO DAILY [facility] Last Admin: 06/21/17 08:58 Dose: 20 meq Simvastatin (Zocor) 10 mg PO BEDTIME [facility] Last Admin: 06/20/17 20:23 Dose: 10 mg Temazepam (Restoril) 7.5 mg PO BEDTIME PRN PRN Reason: Insomnia Last Admin: 06/19/17 23:03 Dose: 7.5 mg Warfarin Sodium (Pharmacy To Dose - Warfarin) 1 dose .XX ASDIRECTED [facility] Warfarin Sodium (Coumadin) 4 mg PO ONETIME ONE Stop: 06/21/17 18:01 Discontinued Medications Al Hydroxide/Mg Hydroxide (Mag-Al Plus) 15 ml PO ONETIME ONE Stop: 06/18/17 15:51 Last Admin: 06/18/17 15:51 Dose: 15 ml Digoxin (Lanoxin) 125 mcg PO DAILY [facility] Last Admin: 06/21/17 08:58 Dose: 125 mcg Enoxaparin Sodium (Lovenox) 40 mg SUBCUT Q24H [facility] Last Admin: 06/17/17 22:30 Dose: 40 mg Enoxaparin Sodium (Lovenox) 30 mg SUBCUT Q24H [facility] Enoxaparin Sodium (Lovenox) 30 mg SUBCUT Q24H [facility] Last Admin: 06/19/17 21:01 Dose: 30 mg Furosemide (Lasix) 40 mg IVPUSH NOW ONE Stop: 06/17/17 19:03 Last Admin: 06/17/17 19:20 Dose: 40 mg Sodium Chloride (Normal Saline) 1,000 mls @ 150 mls/hr IV ASDIRECTED [facility] Last Admin: 06/17/17 18:08 Dose: 150 mls/hr Magnesium Sulfate 4 gm/ Premix 100 mls @ 50 mls/hr IV ONETIME ONE Stop: 06/17/17 21:47 Last Admin: 06/17/17 20:03 Dose: Not Given Magnesium Sulfate 2 gm/ Premix 50 mls @ 25 mls/hr IV ONETIME ONE Stop: 06/17/17 22:01 Last Admin: 06/17/17 20:11 Dose: 25 mls/hr Magnesium Sulfate 2 gm/ Premix 50 mls @ 25 mls/hr IV ONETIME ONE Stop: 06/17/17 22:02 Last Admin: 06/17/17 22:29 Dose: 25 mls/hr Levofloxacin/Dextrose 750 mg/ (Premix) 150 mls @ 100 mls/hr IV Q48H [facility] Last Admin: 06/19/17 21:04 Dose: 100 mls/hr Furosemide 100 mg/ Sodium (Chloride) 100 mls @ 4 mls/hr IV TITRATE [facility]; Protocol Last Admin: 06/18/17 20:49 Dose: 4 mls/hr Magnesium Sulfate 2 gm/ Premix 50 mls @ 25 mls/hr IV ONETIME ONE Stop: 06/20/17 18:44 Last Admin: 06/20/17 17:03 Dose: 25 mls/hr Magnesium Hydroxide (Milk Of Magnesia) 30 ml PO ONETIME PRN PRN Reason: Constipation Metolazone (Zaroxolyn) 2.5 mg PO TuThSa@0900 [facility] Last Admin: 06/19/17 09:25 Dose: 2.5 mg Non-Formulary Medication (Sitagliptin) 50 mg PO DAILY [facility] Last Admin: 06/19/17 19:34 Dose: Not Given Ondansetron HCl (Zofran) 4 mg IVPUSH ONETIME ONE Stop: 06/17/17 17:58 Last Admin: 06/17/17 18:08 Dose: 4 mg Oral Electrolytes (Thermotabs) 2 each PO BID@1130,1400 [facility] Stop: 06/20/17 14:01 Last Admin: 06/20/17 14:17 Dose: 2 each Warfarin Sodium (Coumadin) 2 mg PO MoWeFr@1800 [facility] Last Admin: 06/18/17 18:12 Dose: 2 mg Warfarin Sodium (Coumadin) 4 mg PO Torey@1800 [facility] Warfarin Sodium (Coumadin) 5 mg PO ONETIME ONE Stop: 06/19/17 18:01 Last Admin: 06/19/17 17:18 Dose: 5 mg Warfarin Sodium (Coumadin) 2 mg PO ONETIME ONE Stop: 06/20/17 18:01 Last Admin: 06/20/17 17:03 Dose: 2 mg - Exam Quality Assessment: Urine Catheter, DVT Prophylaxis. No: Supplemental Oxygen General: Alert, Oriented, Cooperative, No Acute Distress HEENT: Pupils Equal, Pupils Reactive, EOMI, Mucous Membr. Moist/[place] Neck: Supple, Trachea Midline, No JVD Lungs: Clear to Auscultation, Normal Respiratory Effort, Decreased Breath Sounds. No: Rhonchi, Wheezing Cardiovascular: Regular Rate, Regular Rhythm, Murmurs (systolic) GI/Abdominal Exam: Normal Bowel Sounds, Soft, Non-Tender, No Organomegaly, No Distention, No Abnormal Bruit, No Mass, Pelvis Stable (Female) Exam: Deferred Back Exam: Normal Inspection, Full Range of Motion Extremities: Normal Inspection, Normal Range of Motion, Non-Tender, No Pedal Edema, Normal Capillary Refill, Pedal Edema (trace bilateral feet) Peripheral Pulses: 1+: Posterior Tibial (L), Posterior Tibial (R), Dorsalis Pedis (L), Dorsalis Pedis (R) Skin: Warm, Dry, Intact Neurological: No New Focal Deficit Psy/Mental Status: Alert, Normal Affect, Normal Mood - Problem List & Annotations (1) Acute exacerbation of congestive heart failure SNOMED Code(s): 89246050 Code(s): I50.9 - HEART FAILURE, UNSPECIFIED Status: Acute Priority: High Current Visit: Yes Qualifiers: Heart failure type: diastolic Qualified Code(s): I50.33 - Acute on chronic diastolic (congestive) heart failure (2) Hyponatremia with decreased serum osmolality SNOMED Code(s): 849681966 Code(s): E87.1 - HYPO-OSMOLALITY AND HYPONATREMIA Status: Acute Priority : High Current Visit: Yes (3) Chronic atrial fibrillation SNOMED Code(s): 505646218 Code(s): I48.2 - CHRONIC ATRIAL FIBRILLATION Status: Chronic Priority: Medium Current Visit: Yes (4) Diabetes mellitus SNOMED Code(s): 93803754 Code(s): E11.9 - TYPE 2 DIABETES MELLITUS WITHOUT COMPLICATIONS Status: Chronic Priority: Medium Current Visit: Yes Qualifiers: Diabetes mellitus type: type 2 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: unspecified senior care insulin use status Diabetes mellitus complication status : without complication Qualified Code(s): E11.9 - Type 2 diabetes mellitus without complications (5) CKD (chronic kidney disease) stage 3, GFR 30-59 ml/min SNOMED Code(s): 520671896 Code(s): N18.3 - CHRONIC KIDNEY DISEASE, STAGE 3 (MODERATE) Status: Chronic Current Visit: No (6) Cardiomyopathy SNOMED Code(s): 39969384 Code(s): I42.9 - CARDIOMYOPATHY, UNSPECIFIED Status: Chronic Priority: Medium Current Visit: No Qualifiers: Cardiomyopathy type: unspecified Qualified Code(s): I42.9 - Cardiomyopathy , unspecified (7) Hypomagnesemia SNOMED Code(s): 402270930 Code(s): E83.42 - HYPOMAGNESEMIA Status: Acute Priority: Medium Current Visit: Yes (8) Urge incontinence SNOMED Code(s): 08784142 Code(s): N39.41 - URGE INCONTINENCE Status: Acute Priority: Medium Current Visit: Yes - Problem List Review Problem List Initiated/Reviewed/Updated: Yes - My Orders Last 24 Hours: My Active Orders 06/21/17 12:43 Bladder Training Program [RC] ROUTINE - Plan Plan:: I/P: Acute: Exacerbation of CHF, Improving -Respiratory distress in ED -Per ED note was recently decreased from 80 mg lasix BID to 40mg in AM and 20mg in PM -Hypertensive on floor arrival--> stable now -BNP 5457-->6149-->5457-->3535-->2825 -Lasix drip- Discontinued for 18hrs --> restarted today -Crockett catheter for monitoring I&O -Will hold off 2 gram sodium diet as sodium is low -Will hold off fluid restriction for now as she appears somewhat dehydrated -Heart failure education -Titrate O2 as needed -Echo obtained 06/18/17 -LVEF 30-35% -Moderately decreased left ventricular systolic function -Mild concentric left ventricular hypertrophy -Restrictive (Grade 3) pattern of diastolic filling -Global mild hypokinesis. Septal movement is paradoxical and may be due to RV pacing of RV overload -Moderate Aortic valve stenosis -Mild aortic valve regurgitation -Inferior vena cava is normal sized with respiratory size variation greater than 50% -No significant change from 11/16/15 -Moderate biatrial dilation -Respiratory viral panel, Influenza, Blood cultures, urine cultures, mycoplasma pneumonia - all negative -Repeat CXR on 06/20/17--> No changes, Lungs are clear, Cardiomegaly, minimal pulmonary vascular prominence per Dr. House -Recommend going to the advice line rn for f/u stan for poor LVEF and pacemaker issues--> appointment changed from July to July 16 via CM -Digoxin levels elevated today at 2.3--> Hold Digoxin today. Renal insufficiency, acute -Baseline appears to be eGFR very low to upper 40's -BUN 29-->31-->39-->54-->40 -Creatinine 1.1-->1.3-->1.8-->1.9-->1.2 -eGFR 47-->39-->26-->25-->42 -Was on lasix drip. Held for 18 hours due to kidney function. Will restart Lasix today. -Monitor need for IV fluids - balance with worsening CHF Hyponatremia, Improving -Sodium 130 in ED-->125-->130 -Baseline from all prior visits appears to be 129-131 -Good oral intake reported by nursing -Monitor AM labs -Continue Thermotabs BID Hypomagnesium, Resolved -1.1-->2.5-->1.9-->1.6-->2.5 -Mg given yesterday Urinary Incontinence (urge and stress) -Lasix held for 18 hours, no improvement --> restarted today. -Bladder training started today. -Oxybutynin previously increased from 5mg-->10mg without relief, will D/C today. -Will start [place] 20mg q Daily today (renal/geriatric dose) -Watch potassium levels--> 4.6 today -D/C potassium supplement -Will refer to Bladder Specialist, Joslyn Ramsey NP from [facility] who comes to [facility] monthly for f/u. -Bladder function test -We recommend a referral to Urologist if needed A Fib on coumadin; Subtheraputic INR -INR 1.29-->1.26-->1.57-->1.97-->2.08 -Pharmacy reports some discrepancy in how patient is taking warfarin -Pharmacy to dose warfarin -Lovenox until INR within therapeutic range--> Lovenox stopped yesterday, . -Will need outpatient follow-up Chronic: Impaired vision Angina Hx/o Blood clots/VTE/PE on coumadin CHF Heart Murmur HLD HTN Hx/o AL Pacemaker GERD Arthritis Osteoporosis Hx/o CVA Type II DM Hx/o Appendecomty Hx/o Cholecystectomy Plan: Admit to medical floor on telemetry Empiric ATB, Levoquin--renal dose Neb scheduled/prn SW/CM for discharge planning Pt/OT Home medications as ordered Other orders as indicated above Routine AM labs GI prophylaxis: Pepcid DVT/PE prophylaxis: On warfarin - increasing dose to achieve therapeutic INR Code status: DNR/DNI; PCP: Dr. Chino at [facility] LOS >96hrs due to slow response to treatment and poor kidney function.
[2017-06-21] MEDS ORDERED: Warfarin 4 MG Tab PO ONE (18:00)
[2017-06-21] MEDS: Levofloxacin 750 MG Tab PO SCH (21:17)
[2017-06-21] MEDS: Simvastatin 10 MG Tab PO SCH (21:17)
[2017-06-21] MEDS: Docusate Sodium 100 MG Cap PO SCH (21:19)
[2017-06-22] MEDS: Temazepam 7.5 MG Cap PO PRN (02:22)
[2017-06-22] MEDS: Insulin Aspart 100 Units/ML 3 ML Pen SUBCUT SCH ×4 (06:13→22:48)
[2017-06-22] MEDS: Trospium 20 MG Tab PO SCH (06:14)
[2017-06-22] MEDS: Levothyroxine 25 MCG Tab PO SCH (06:14)
[2017-06-22] MEDS: Pantoprazole 40 MG Tab.CR PO SCH (06:14)
[2017-06-22] MEDS: Gabapentin 300 MG Cap PO SCH ×3 (08:25→20:23)
[2017-06-22] MEDS: Aspirin 81 MG Tab.EC PO SCH (08:25)
[2017-06-22] MEDS: Ferrous Sulfate 325 MG Tab PO SCH (08:25)
[2017-06-22] MEDS: Metoprolol Tartrate 100 MG Tab PO SCH ×2 (08:25→20:24)
[2017-06-22] MEDS: Furosemide 100 MG in Sodium Chloride 0.9% 90 ML IV SCH (11:38)
--- NOTE | 2017-06-22 11:59 | PCM.PN ---
- General Info Date of Service: 06/22/17 Admission Dx/Problem (Free Text): Hyponatremia Subjective Update: In to see Jenna. She is getting ready to shower. Lasix drip is on, urinary catheter is still in, but will be dc'd later today. She still feels like she has to go the restroom frequently- we will see if the new medication, Sanctura, helps. She also mentions she has a headache, about 09/02. Will give Tylenol. No other concerns. Nursing has no concerns. Functional Status: Reports: Pain Controlled - Review of Systems General: Reports: Weakness (improving), Fatigue (improving). Denies: Fever, Malaise, Chills HEENT: Reports: Headaches (08/02) Pulmonary: Reports: Shortness of Breath, Cough. Denies: Pleuritic Chest Pain, Wheezing Cardiovascular: Reports: Dyspnea on Exertion. Denies: Chest Pain, Palpitations Gastrointestinal: Reports: No Symptoms. Denies: Abdominal Pain, Constipation, Diarrhea, Nausea, Vomiting Genitourinary: Reports: Urgency. Denies: Dysuria, Burning, Pain Musculoskeletal: Reports: No Symptoms Skin: Reports: No Symptoms Neurological: Reports: No Symptoms Psychiatric: Reports: No Symptoms - Patient Data Vitals - Most Recent: Last Vital Signs Temp 97.7 F 06/22/17 08:09 Pulse 75 06/22/17 08:25 Resp 16 06/22/17 08:09 BP 112/55 L 06/22/17 08:25 Pulse Ox 94 L 06/22/17 08:09 Weight - Most Recent: 143 lb 14.4 oz I&O - Last 24 Hours: Intake & Output 06/21/17 06/22/17 06/22/17 22:59 06:59 14:59 Intake Total 715 300 Output Total 715 860 Balance 0 -560 Lab Results Last 24 Hours: Laboratory Results - last 24 hr 06/21/17 06/21/17 06/22/17 Range/Units 16:45 21:12 06:11 PT (8.0-13.0) SECONDS INR Sodium (136-145) mEq/L Potassium (3.5-5.1) mEq/L Chloride (98-107) mEq/L Carbon Dioxide (21-32) mEq/L Anion Gap (5-15) BUN (7-18) mg/dL Creatinine (0.55-1.02) mg/dL Est Cr Clr Drug Dosing mL/min Estimated GFR (MDRD) (>60) mL/min BUN/Creatinine Ratio (-18) Glucose (83-115) mg/dL POC Glucose 122 H 155 H 114 H (83-110) mg/dL Calcium (8.5-10.1) mg/dL NT-Pro-B Natriuret Pep (0-450) pg/mL 06/22/17 06/22/17 06/22/17 Range/Units 06:24 06:24 10:02 PT 22.8 H (8.0-13.0) SECONDS INR 2.11 Sodium 134 L (136-145) mEq/L Potassium 4.4 (3.5-5.1) mEq/L Chloride 93 L (98-107) mEq/L Carbon Dioxide 36 H (21-32) mEq/L Anion Gap 9.4 (5-15) BUN 39 H (7-18) mg/dL Creatinine 1.3 H (0.55-1.02) mg/dL Est Cr Clr Drug Dosing 22.14 mL/min Estimated GFR (MDRD) 39 (>60) mL/min BUN/Creatinine Ratio 30.0 H (14-18) Glucose 110 (83-115) mg/dL POC Glucose (83-110) mg/dL Calcium 9.1 (8.5-10.1) mg/dL NT-Pro-B Natriuret Pep 4508 H (0-450) pg/mL 06/22/17 Range/Units 11:07 PT (8.0-13.0) SECONDS INR Sodium (136-145) mEq/L Potassium (3.5-5.1) mEq/L Chloride (98-107) mEq/L Carbon Dioxide (21-32) mEq/L Anion Gap (5-15) BUN (7-18) mg/dL Creatinine (0.55-1.02) mg/dL Est Cr Clr Drug Dosing mL/min Estimated GFR (MDRD) (>60) mL/min BUN/Creatinine Ratio (-18) Glucose (83-115) mg/dL POC Glucose 136 H (83-110) mg/dL Calcium (8.5-10.1) mg/dL NT-Pro-B Natriuret Pep (0-450) pg/mL Jason Results Last 24 Hours: Microbiology 06/17/17 18:51 Aerobic Blood Culture - Preliminary Blood - Venous - Lab Draw NO GROWTH AFTER 4 DAYS Anaerobic Blood Culture - Preliminary NO GROWTH AFTER 4 DAYS 06/17/17 18:43 Aerobic Blood Culture - Preliminary Blood - Venous NO GROWTH AFTER 4 DAYS Anaerobic Blood Culture - Preliminary NO GROWTH AFTER 4 DAYS 06/17/17 18:06 Urine Culture - Final Urine, Clean Catch Med Orders - Current: Current Medications Acetaminophen (Tylenol) 650 mg PO Q6H PRN PRN Reason: Pain/Fever Last Admin: 06/18/17 06:46 Dose: 650 mg Aspirin (Halfprin) 81 mg PO DAILY [facility] Last Admin: 06/22/17 08:25 Dose: 81 mg Bisacodyl (Dulcolax) 10 mg RECTAL DAILY PRN PRN Reason: Constipation Last Admin: 06/21/17 06:15 Dose: 10 mg Dextrose/Water (Dextrose 50% In Water) 50 ml IVPUSH ASDIRECTED PRN PRN Reason: Hypoglycemia Docusate Sodium (Colace) 100 mg PO BEDTIME [facility] Last Admin: 06/21/17 21:19 Dose: 100 mg Ferrous Sulfate (Ferrous Sulfate) 325 mg PO DAILY [facility] Last Admin: 06/22/17 08:25 Dose: 325 mg Gabapentin (Neurontin) 300 mg PO TID [facility] Last Admin: 06/22/17 08:25 Dose: 300 mg Hydralazine HCl (Apresoline) 20 mg IVPUSH Q6H PRN PRN Reason: Hypertension Furosemide 100 mg/ Sodium (Chloride) 100 mls @ 4 mls/hr IV TITRATE [facility] Stop: 06/23/17 10:00 Last Admin: 06/22/17 11:38 Dose: 4 mg/hr, 4 mls/hr Insulin Aspart (Novolog) 0 unit SUBCUT QIDACANDBED [facility]; Protocol Last Admin: 06/22/17 11:39 Dose: Not Given Levofloxacin (Levaquin) 750 mg PO Q48H [facility] Stop: 06/23/17 21:01 Last Admin: 06/21/17 21:17 Dose: 750 mg Levothyroxine Sodium (Levothyroxine) 25 mcg PO ACBREAKFAST [facility] Last Admin: 06/22/17 06:14 Dose: 25 mcg Magnesium Hydroxide (Milk Of Magnesia) 30 ml PO DAILY PRN PRN Reason: Constipation Last Admin: 06/21/17 06:22 Dose: 30 ml Metoprolol Tartrate (Lopressor) 100 mg PO BID [facility] Last Admin: 06/22/17 08:25 Dose: 100 mg Pantoprazole Sodium (Protonix) 40 mg PO DAILY@0700 [facility] Last Admin: 06/22/17 06:14 Dose: 40 mg Simvastatin (Zocor) 10 mg PO BEDTIME [facility] Last Admin: 06/21/17 21:17 Dose: 10 mg Temazepam (Restoril) 7.5 mg PO BEDTIME PRN PRN Reason: Insomnia Last Admin: 06/22/17 02:22 Dose: 7.5 mg Trospium (Sanctura) 20 mg PO ACBREAKFAST [facility] Last Admin: 06/22/17 06:14 Dose: 20 mg Warfarin Sodium (Pharmacy To Dose - Warfarin) 1 dose .XX ASDIRECTED [facility] Warfarin Sodium (Coumadin) 2 mg PO ONETIME ONE Stop: 06/22/17 18:01 Discontinued Medications Al Hydroxide/Mg Hydroxide (Mag-Al Plus) 15 ml PO ONETIME ONE Stop: 06/18/17 15:51 Last Admin: 06/18/17 15:51 Dose: 15 ml Digoxin (Lanoxin) 125 mcg PO DAILY [facility] Last Admin: 06/21/17 08:58 Dose: 125 mcg Enoxaparin Sodium (Lovenox) 40 mg SUBCUT Q24H [facility] Last Admin: 06/17/17 22:30 Dose: 40 mg Enoxaparin Sodium (Lovenox) 30 mg SUBCUT Q24H [facility] Enoxaparin Sodium (Lovenox) 30 mg SUBCUT Q24H [facility] Last Admin: 06/19/17 21:01 Dose: 30 mg Furosemide (Lasix) 40 mg IVPUSH NOW ONE Stop: 06/17/17 19:03 Last Admin: 06/17/17 19:20 Dose: 40 mg Sodium Chloride (Normal Saline) 1,000 mls @ 150 mls/hr IV ASDIRECTED [facility] Last Admin: 06/17/17 18:08 Dose: 150 mls/hr Magnesium Sulfate 4 gm/ Premix 100 mls @ 50 mls/hr IV ONETIME ONE Stop: 06/17/17 21:47 Last Admin: 06/17/17 20:03 Dose: Not Given Magnesium Sulfate 2 gm/ Premix 50 mls @ 25 mls/hr IV ONETIME ONE Stop: 06/17/17 22:01 Last Admin: 06/17/17 20:11 Dose: 25 mls/hr Magnesium Sulfate 2 gm/ Premix 50 mls @ 25 mls/hr IV ONETIME ONE Stop: 06/17/17 22:02 Last Admin: 06/17/17 22:29 Dose: 25 mls/hr Levofloxacin/Dextrose 750 mg/ (Premix) 150 mls @ 100 mls/hr IV Q48H [facility] Last Admin: 06/19/17 21:04 Dose: 100 mls/hr Furosemide 100 mg/ Sodium (Chloride) 100 mls @ 4 mls/hr IV TITRATE [facility]; Protocol Last Admin: 06/18/17 20:49 Dose: 4 mls/hr Magnesium Sulfate 2 gm/ Premix 50 mls @ 25 mls/hr IV ONETIME ONE Stop: 06/20/17 18:44 Last Admin: 06/20/17 17:03 Dose: 25 mls/hr Magnesium Hydroxide (Milk Of Magnesia) 30 ml PO ONETIME PRN PRN Reason: Constipation Metolazone (Zaroxolyn) 2.5 mg PO TuThSa@0900 [facility] Last Admin: 06/19/17 09:25 Dose: 2.5 mg Non-Formulary Medication (Sitagliptin) 50 mg PO DAILY [facility] Last Admin: 06/19/17 19:34 Dose: Not Given Ondansetron HCl (Zofran) 4 mg IVPUSH ONETIME ONE Stop: 06/17/17 17:58 Last Admin: 06/17/17 18:08 Dose: 4 mg Oral Electrolytes (Thermotabs) 2 each PO BID@1130,1400 [facility] Stop: 06/20/17 14:01 Last Admin: 06/20/17 14:17 Dose: 2 each Oxybutynin Chloride (Oxybutynin Er) 10 mg PO DAILY [facility] Last Admin: 06/21/17 08:59 Dose: 10 mg Potassium Chloride (Klor-Con M20) 20 meq PO DAILY [facility] Last Admin: 06/21/17 08:58 Dose: 20 meq Warfarin Sodium (Coumadin) 2 mg PO MoWeFr@1800 [facility] Last Admin: 06/18/17 18:12 Dose: 2 mg Warfarin Sodium (Coumadin) 4 mg PO SuTuThSa@1800 [facility] Warfarin Sodium (Coumadin) 5 mg PO ONETIME ONE Stop: 06/19/17 18:01 Last Admin: 06/19/17 17:18 Dose: 5 mg Warfarin Sodium (Coumadin) 2 mg PO ONETIME ONE Stop: 06/20/17 18:01 Last Admin: 06/20/17 17:03 Dose: 2 mg Warfarin Sodium (Coumadin) 4 mg PO ONETIME ONE Stop: 06/21/17 18:01 Last Admin: 06/21/17 18:04 Dose: 4 mg - Exam Quality Assessment: DVT Prophylaxis. No: Supplemental Oxygen, Urine Catheter General: Alert, Oriented HEENT: Pupils Equal, Pupils Reactive, EOMI, Mucous Membr. Moist/[place] Neck: Supple, Trachea Midline, No JVD Lungs: Clear to Auscultation, Normal Respiratory Effort, Decreased Breath Sounds. No: Rhonchi, Wheezing Cardiovascular: Regular Rate, Regular Rhythm, Murmurs (systolic) GI/Abdominal Exam: Normal Bowel Sounds, Soft, Non-Tender, No Organomegaly, No Distention, No Abnormal Bruit, No Mass, Pelvis Stable (Female) Exam: Deferred Back Exam: Normal Inspection, Full Range of Motion Extremities: Normal Inspection, Normal Range of Motion Peripheral Pulses: 1+: Posterior Tibial (L), Posterior Tibial (R), Dorsalis Pedis (L), Dorsalis Pedis (R) Skin: Warm, Dry, Intact Neurological: No New Focal Deficit Psy/Mental Status: Alert, Normal Affect, Normal Mood - Problem List & Annotations (1) Acute exacerbation of congestive heart failure SNOMED Code(s): 00950496 Code(s): I50.9 - HEART FAILURE, UNSPECIFIED Status: Acute Priority: High Current Visit: Yes Qualifiers: Heart failure type: diastolic Qualified Code(s): I50.33 - Acute on chronic diastolic (congestive) heart failure (2) Hyponatremia with decreased serum osmolality SNOMED Code(s): 194866032 Code(s): E87.1 - HYPO-OSMOLALITY AND HYPONATREMIA Status: Acute Priority : High Current Visit: Yes (3) Chronic atrial fibrillation SNOMED Code(s): 716576473 Code(s): I48.2 - CHRONIC ATRIAL FIBRILLATION Status: Chronic Priority: Medium Current Visit: Yes (4) Diabetes mellitus SNOMED Code(s): 53401817 Code(s): E11.9 - TYPE 2 DIABETES MELLITUS WITHOUT COMPLICATIONS Status: Chronic Priority: Medium Current Visit: Yes Qualifiers: Diabetes mellitus type: type 2 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 insulin use: unspecified nursing home insulin use status Diabetes mellitus complication status : without complication Qualified Code(s): E11.9 - Type 2 diabetes mellitus without complications (5) CKD (chronic kidney disease) stage 3, GFR 30-59 ml/min SNOMED Code(s): 936912858 Code(s): N18.3 - CHRONIC KIDNEY DISEASE, STAGE 3 (MODERATE) Status: Chronic Current Visit: No (6) Cardiomyopathy SNOMED Code(s): 50623358 Code(s): I42.9 - CARDIOMYOPATHY, UNSPECIFIED Status: Chronic Priority: Medium Current Visit: No Qualifiers: Cardiomyopathy type: unspecified Qualified Code(s): I42.9 - Cardiomyopathy , unspecified (7) Hypomagnesemia SNOMED Code(s): 673922865 Code(s): E83.42 - HYPOMAGNESEMIA Status: Acute Priority: Medium Current Visit: Yes (8) Urge incontinence SNOMED Code(s): 72923362 Code(s): N39.41 - URGE INCONTINENCE Status: Acute Priority: Medium Current Visit: Yes - Problem List Review Problem List Initiated/Reviewed/Updated: Yes - My Orders Last 24 Hours: My Active Orders 06/21/17 12:43 Bladder Training Program [RC] QSHIFT 06/22/17 06:00 Trospium [Sanctura] 20 mg PO ACBREAKFAST - Plan Plan:: I/P: Acute: Exacerbation of CHF, Improving -Respiratory distress in ED -Per ED note was recently decreased from 80 mg lasix BID to 40mg in AM and 20mg in PM -Hypertensive on floor arrival--> stable now -BNP 5457-->6149-->5457-->3535-->2825-->4508 -CRP 1.7-->1.6-->1.1-->0.8-->3.3 -Lasix drip- Discontinued for 18hrs --> restarted 06/21/17 -Damon catheter for monitoring I&O -Will hold off 2 gram sodium diet as sodium is low -Will hold off fluid restriction for now as she appears somewhat dehydrated -Heart failure education -Titrate O2 as needed -Echo obtained 06/18/17 -LVEF 30-35% -Moderately decreased left ventricular systolic function -Mild concentric left ventricular hypertrophy -Restrictive (Grade 3) pattern of diastolic filling -Global mild hypokinesis. Septal movement is paradoxical and may be due to RV pacing of RV overload -Moderate Aortic valve stenosis -Mild aortic valve regurgitation -Inferior vena cava is normal sized with respiratory size variation greater than 50% -No significant change from 11/16/15 -Moderate biatrial dilation -Respiratory viral panel, Influenza, Blood cultures, urine cultures, mycoplasma pneumonia - all negative -Repeat CXR on 06/20/17--> No changes, Lungs are clear, Cardiomegaly, minimal pulmonary vascular prominence per Dr. House -Recommend going to the slitting machine feeder for f/u stan for poor LVEF and pacemaker issues--> appointment changed from July to July 16 via -Digoxin levels elevated 06/20/17 at 2.3--> Digoxin held --> 1.5 today--> Restart Digoxin 125 tomorrow (06/23/17). Renal insufficiency, acute -Baseline appears to be eGFR very low to upper 40's -BUN 29-->31-->39-->54-->40-->39 -Creatinine 1.1-->1.3-->1.8-->1.9-->1.2-->1.3 -eGFR 47-->39-->26-->25-->42-->39 -Was on lasix drip. Held for 18 hours due to kidney function. Will restart Lasix today. -Monitor need for IV fluids - balance with worsening CHF Hyponatremia, Improving -Sodium 130 in ED-->125-->130-->134 -Baseline from all prior visits appears to be 129-131 -Good oral intake reported by nursing -Monitor AM labs -Continue Thermotabs BID Hypomagnesium, Resolved -1.1-->2.5-->1.9-->1.6-->2.5-->1.7 -Mg given 06/20/17, 06/22/17 Urinary Incontinence (urge and stress) -Lasix held for 18 hours, no improvement --> continue Lasix gtt. -Bladder training. -Oxybutynin previously increased from 5mg-->10mg without relief, will D/C today. -Sanctura 20mg q Daily started this AM (renal/geriatric dose) -Watch potassium levels--> 4.6-->4.4 -D/C potassium supplement -Will refer to Bladder Specialist, Joslyn Ramsey NP from [facility] who comes to [facility] monthly for f/u. -Bladder function test -We recommend a referral to Urologist if needed A Fib on coumadin; Subtheraputic INR -INR 1.29-->1.26-->1.57-->1.97-->2.08-->2.11 -Pharmacy reports some discrepancy in how patient is taking warfarin -Pharmacy to dose warfarin -Lovenox until INR within therapeutic range--> Lovenox stopped 06/20/17. -Will need outpatient follow-up Chronic: Impaired vision Angina Hx/o Blood clots/VTE/PE on coumadin CHF Heart Murmur HLD HTN Hx/o [place] Pacemaker GERD Arthritis Osteoporosis Hx/o CVA Type II DM Hx/o Appendecomty Hx/o Cholecystectomy Plan: Admit to medical floor on telemetry Empiric ATB, Levoquin--renal dose Neb scheduled/prn SW/CM for discharge planning Pt/OT Home medications as ordered Other orders as indicated above Routine AM labs GI prophylaxis: Pepcid DVT/PE prophylaxis: On warfarin - increasing dose to achieve therapeutic INR Code status: DNR/DNI; PCP: Dr. Chino at [facility] LOS >96hrs due to slow response to treatment and poor kidney function.
[2017-06-22] MEDS ORDERED: Acetaminophen 325 MG Tab PO ONE (13:37)
[2017-06-22] MEDS ORDERED: Magnesium Oxide 400 MG Tab PO ONE (14:15)
[2017-06-22] MEDS: Warfarin 2 MG Tab PO ONE ×2 (17:31→17:46)
[2017-06-22] MEDS: Docusate Sodium 100 MG Cap PO SCH (20:22)
[2017-06-22] MEDS: Simvastatin 10 MG Tab PO SCH (20:23)
[2017-06-23] MEDS: Trospium 20 MG Tab PO SCH (06:41)
[2017-06-23] MEDS: Levothyroxine 25 MCG Tab PO SCH (06:41)
[2017-06-23] MEDS: Pantoprazole 40 MG Tab.CR PO SCH (06:41)
[2017-06-23] MEDS: Insulin Aspart 100 Units/ML 3 ML Pen SUBCUT SCH ×4 (07:39→22:26)
[2017-06-23] MEDS: Ferrous Sulfate 325 MG Tab PO SCH (09:00)
[2017-06-23] MEDS: Aspirin 81 MG Tab.EC PO SCH (09:01)
[2017-06-23] MEDS: Gabapentin 300 MG Cap PO SCH ×3 (09:01→21:59)
[2017-06-23] MEDS: Metoprolol Tartrate 100 MG Tab PO SCH ×2 (09:01→21:58)
--- NOTE | 2017-06-23 13:47 | PCM.PN ---
- General Info Subjective Update: Patient had a dry brief today; has had bladder training and medication adjusted. Damon removal (06/22), day 1--06/23/17. Continue bladder training and new urinary incontinence medication. Functional Status: Reports: Pain Controlled (except when walking), Tolerating Diet, Ambulating (minimal), Urinating - Review of Systems General: Reports: Weakness HEENT: Reports: No Symptoms Pulmonary: Reports: No Symptoms Cardiovascular: Reports: No Symptoms Gastrointestinal: Reports: No Symptoms Genitourinary: Reports: No Symptoms Musculoskeletal: Reports: Leg Pain Skin: Reports: No Symptoms Neurological: Reports: No Symptoms Psychiatric: Reports: No Symptoms - Patient Data Vitals - Most Recent: Last Vital Signs Temp 36.3 C 06/23/17 09:14 Pulse 77 06/23/17 09:14 Resp 15 06/23/17 09:14 BP 129/91 H 06/23/17 09:14 Pulse Ox 99 06/23/17 09:14 Weight - Most Recent: 65.227 kg I&O - Last 24 Hours: Intake & Output 06/22/17 06/23/17 06/23/17 22:59 06:59 14:59 Intake Total 914 383 890 Output Total 925 8682 600 Balance - -8591 290 Lab Results Last 24 Hours: Laboratory Results - last 24 hr 06/22/17 06/22/17 06/22/17 Range/Units 14:01 17:06 19:59 WBC (3.98-10.04) K/mm3 RBC (3.98-5.22) M/mm3 Hgb (11.2-15.7) gm/L Hct (34.1-44.9) % MCV (79.4-94.8) fl MCH (25.6-32.2) pg MCHC (32.2-35.5) g/dl RDW Std Deviation (36.4-46.3) fL Plt Count (182-369) K/mm3 MPV (9.4-12.3) fl Neut % (Auto) (34.0-71.1) % Lymph % (Auto) (19.3-51.7) % Motley % (Auto) (4.7-12.5) % Eos % (Auto) (0.7-5.8) Baso % (Auto) (0.1-1.2) % Neut # (Auto) (1.56-6.13) K/mm3 Lymph # (Auto) (1.18-3.74) K/mm3 Motley # (Auto) (0.24-0.36) K/mm3 Eos # (Auto) (0.04-0.36) K/mm3 Baso # (Auto) (0.01-0.08) K/mm3 Manual Slide Review PT (8.0-13.0) SECONDS INR Sodium (136-145) mEq/L Potassium (3.5-5.1) mEq/L Chloride (98-107) mEq/L Carbon Dioxide (21-32) mEq/L Anion Gap (5-15) BUN (7-18) mg/dL Creatinine (0.55-1.02) mg/dL Est Cr Clr Drug Dosing mL/min Estimated GFR (MDRD) (>60) mL/min BUN/Creatinine Ratio (14-18) Glucose (83-115) mg/dL POC Glucose 172 H 158 H (83-110) mg/dL Lactic Acid 2.6 H (0.4-2.0) mmol/L Calcium (8.5-10.1) mg/dL Magnesium (1.8-2.4) mg/dl C-Reactive Protein (<1.0) mg/dL NT-Pro-B Natriuret Pep (0-450) pg/mL 06/23/17 06/23/17 06/23/17 Range/Units 05:38 06:35 06:35 WBC (3.98-10.04) K/mm3 RBC (3.98-5.22) M/mm3 Hgb (11.2-15.7) gm/L Hct (34.1-44.9) % MCV (79.4-94.8) fl MCH (25.6-32.2) pg MCHC (32.2-35.5) g/dl RDW Std Deviation (36.4-46.3) fL Plt Count (182-369) K/mm3 MPV (9.4-12.3) fl Neut % (Auto) (34.0-71.1) % Lymph % (Auto) (19.3-51.7) % Motley % (Auto) (4.7-12.5) % Eos % (Auto) (0.7-5.8) Baso % (Auto) (0.1-1.2) % Neut # (Auto) (1.56-6.13) K/mm3 Lymph # (Auto) (1.18-3.74) K/mm3 Motley # (Auto) (0.24-0.36) K/mm3 Eos # (Auto) (0.04-0.36) K/mm3 Baso # (Auto) (0.01-0.08) K/mm3 Manual Slide Review PT 25.3 H (8.0-13.0) SECONDS INR 2.34 Sodium 136 (136-145) mEq/L Potassium 3.6 (3.5-5.1) mEq/L Chloride 91 L (98-107) mEq/L Carbon Dioxide 38 H (21-32) mEq/L Anion Gap 10.6 (5-15) BUN 45 H (7-18) mg/dL Creatinine 1.5 H (0.55-1.02) mg/dL Est Cr Clr Drug Dosing 19.19 mL/min Estimated GFR (MDRD) 33 (>60) mL/min BUN/Creatinine Ratio 30.0 H (14-18) Glucose 115 (83-115) mg/dL POC Glucose 141 H (83-110) mg/dL Lactic Acid (0.4-2.0) mmol/L Calcium 9.7 (8.5-10.1) mg/dL Magnesium 1.7 L (1.8-2.4) mg/dl C-Reactive Protein 8.0 H* (<1.0) mg/dL NT-Pro-B Natriuret Pep (0-450) pg/mL 06/23/17 06/23/17 06/23/17 Range/Units 06:35 06:35 06:35 WBC 15.58 H (3.98-10.04) K/mm3 RBC 4.52 (3.98-5.22) M/mm3 Hgb 13.2 (11.2-15.7) gm/L Hct 40.1 (34.1-44.9) % MCV 88.7 (79.4-94.8) fl MCH 29.2 (25.6-32.2) pg MCHC 32.9 (32.2-35.5) g/dl RDW Std Deviation 46.2 (36.4-46.3) fL Plt Count 379 H (182-369) K/mm3 MPV 9.5 (9.4-12.3) fl Neut % (Auto) 52.2 (34.0-71.1) % Lymph % (Auto) 36.5 (19.3-51.7) % Motley % (Auto) 6.8 (4.7-12.5) % Eos % (Auto) 3.9 (0.7-5.8) Baso % (Auto) 0.2 (0.1-1.2) % Neut # (Auto) 8.15 H (1.56-6.13) K/mm3 Lymph # (Auto) 5.68 H (1.18-3.74) K/mm3 Motley # (Auto) 1.06 H (0.24-0.36) K/mm3 Eos # (Auto) 0.60 H (0.04-0.36) K/mm3 Baso # (Auto) 0.03 (0.01-0.08) K/mm3 Manual Slide Review Normal smear PT (8.0-13.0) SECONDS INR Sodium (136-145) mEq/L Potassium (3.5-5.1) mEq/L Chloride (98-107) mEq/L Carbon Dioxide (21-32) mEq/L Anion Gap (5-15) BUN (7-18) mg/dL Creatinine (0.55-1.02) mg/dL Est Cr Clr Drug Dosing mL/min Estimated GFR (MDRD) (>60) mL/min BUN/Creatinine Ratio (14-18) Glucose (83-115) mg/dL POC Glucose (83-110) mg/dL Lactic Acid 1.2 (0.4-2.0) mmol/L Calcium (8.5-10.1) mg/dL Magnesium (1.8-2.4) mg/dl C-Reactive Protein (<1.0) mg/dL NT-Pro-B Natriuret Pep 2702 H (0-450) pg/mL 06/23/17 Range/Units 10:29 WBC (3.98-10.04) K/mm3 RBC (3.98-5.22) M/mm3 Hgb (11.2-15.7) gm/L Hct (34.1-44.9) % MCV (79.4-94.8) fl MCH (25.6-32.2) pg MCHC (32.2-35.5) g/dl RDW Std Deviation (36.4-46.3) fL Plt Count (182-369) K/mm3 MPV (9.4-12.3) fl Neut % (Auto) (34.0-71.1) % Lymph % (Auto) (19.3-51.7) % Motley % (Auto) (4.7-12.5) % Eos % (Auto) (0.7-5.8) Baso % (Auto) (0.1-1.2) % Neut # (Auto) (1.56-6.13) K/mm3 Lymph # (Auto) (1.18-3.74) K/mm3 Motley # (Auto) (0.24-0.36) K/mm3 Eos # (Auto) (0.04-0.36) K/mm3 Baso # (Auto) (0.01-0.08) K/mm3 Manual Slide Review PT (8.0-13.0) SECONDS INR Sodium (136-145) mEq/L Potassium (3.5-5.1) mEq/L Chloride (98-107) mEq/L Carbon Dioxide (21-32) mEq/L Anion Gap (5-15) BUN (7-18) mg/dL Creatinine (0.55-1.02) mg/dL Est Cr Clr Drug Dosing mL/min Estimated GFR (MDRD) (>60) mL/min BUN/Creatinine Ratio (14-18) Glucose (83-115) mg/dL POC Glucose 165 H (83-110) mg/dL Lactic Acid (0.4-2.0) mmol/L Calcium (8.5-10.1) mg/dL Magnesium (1.8-2.4) mg/dl C-Reactive Protein (<1.0) mg/dL NT-Pro-B Natriuret Pep (0-450) pg/mL Jason Results Last 24 Hours: Microbiology 06/17/17 18:51 Aerobic Blood Culture - Preliminary Blood - Venous - Lab Draw NO GROWTH AFTER 5 DAYS Anaerobic Blood Culture - Preliminary NO GROWTH AFTER 5 DAYS 06/17/17 18:43 Aerobic Blood Culture - Preliminary Blood - Venous NO GROWTH AFTER 5 DAYS Anaerobic Blood Culture - Preliminary NO GROWTH AFTER 5 DAYS Med Orders - Current: Current Medications Acetaminophen (Tylenol) 650 mg PO Q6H PRN PRN Reason: Pain/Fever Last Admin: 06/18/17 06:46 Dose: 650 mg Aspirin (Halfprin) 81 mg PO DAILY [facility] Last Admin: 06/23/17 09:01 Dose: 81 mg Bisacodyl (Dulcolax) 10 mg RECTAL DAILY PRN PRN Reason: Constipation Last Admin: 06/21/17 06:15 Dose: 10 mg Dextrose/Water (Dextrose 50% In Water) 50 ml IVPUSH ASDIRECTED PRN PRN Reason: Hypoglycemia Digoxin (Lanoxin) 125 mcg PO DAILY@1200 [facility] Docusate Sodium (Colace) 100 mg PO BEDTIME [facility] Last Admin: 06/22/17 20:22 Dose: 100 mg Ferrous Sulfate (Ferrous Sulfate) 325 mg PO DAILY [facility] Last Admin: 06/23/17 09:00 Dose: 325 mg Gabapentin (Neurontin) 300 mg PO TID [facility] Last Admin: 06/23/17 09:01 Dose: 300 mg Hydralazine HCl (Apresoline) 20 mg IVPUSH Q6H PRN PRN Reason: Hypertension Insulin Aspart (Novolog) 0 unit SUBCUT QIDACANDBED [facility]; Protocol Last Admin: 06/23/17 12:40 Dose: 1 units Levofloxacin (Levaquin) 750 mg PO Q48H [facility] Stop: 06/23/17 21:01 Last Admin: 06/21/17 21:17 Dose: 750 mg Levothyroxine Sodium (Levothyroxine) 25 mcg PO ACBREAKFAST [facility] Last Admin: 06/23/17 06:41 Dose: 25 mcg Magnesium Hydroxide (Milk Of Magnesia) 30 ml PO DAILY PRN PRN Reason: Constipation Last Admin: 06/21/17 06:22 Dose: 30 ml Metoprolol Tartrate (Lopressor) 100 mg PO BID [facility] Last Admin: 06/23/17 09:01 Dose: 100 mg Pantoprazole Sodium (Protonix) 40 mg PO DAILY@0700 [facility] Last Admin: 06/23/17 06:41 Dose: 40 mg Simvastatin (Zocor) 10 mg PO BEDTIME [facility] Last Admin: 06/22/17 20:23 Dose: 10 mg Temazepam (Restoril) 7.5 mg PO BEDTIME PRN PRN Reason: Insomnia Last Admin: 06/22/17 02:22 Dose: 7.5 mg Trospium (Sanctura) 20 mg PO ACBREAKFAST [facility] Last Admin: 06/23/17 06:41 Dose: 20 mg Warfarin Sodium (Pharmacy To Dose - Warfarin) 1 dose .XX ASDIRECTED [facility] Warfarin Sodium (Coumadin) 2 mg PO ONETIME ONE Stop: 06/23/17 18:01 Discontinued Medications Acetaminophen (Tylenol) 650 mg PO NOW ONE Stop: 06/22/17 13:38 Last Admin: 06/22/17 14:28 Dose: 650 mg Al Hydroxide/Mg Hydroxide (Mag-Al Plus) 15 ml PO ONETIME ONE Stop: 06/18/17 15:51 Last Admin: 06/18/17 15:51 Dose: 15 ml Digoxin (Lanoxin) 125 mcg PO DAILY [facility] Last Admin: 06/21/17 08:58 Dose: 125 mcg Enoxaparin Sodium (Lovenox) 40 mg SUBCUT Q24H [facility] Last Admin: 06/17/17 22:30 Dose: 40 mg Enoxaparin Sodium (Lovenox) 30 mg SUBCUT Q24H [facility] Enoxaparin Sodium (Lovenox) 30 mg SUBCUT Q24H [facility] Last Admin: 06/19/17 21:01 Dose: 30 mg Furosemide (Lasix) 40 mg IVPUSH NOW ONE Stop: 06/17/17 19:03 Last Admin: 06/17/17 19:20 Dose: 40 mg Sodium Chloride (Normal Saline) 1,000 mls @ 150 mls/hr IV ASDIRECTED [facility] Last Admin: 06/17/17 18:08 Dose: 150 mls/hr Magnesium Sulfate 4 gm/ Premix 100 mls @ 50 mls/hr IV ONETIME ONE Stop: 06/17/17 21:47 Last Admin: 06/17/17 20:03 Dose: Not Given Magnesium Sulfate 2 gm/ Premix 50 mls @ 25 mls/hr IV ONETIME ONE Stop: 06/17/17 22:01 Last Admin: 06/17/17 20:11 Dose: 25 mls/hr Magnesium Sulfate 2 gm/ Premix 50 mls @ 25 mls/hr IV ONETIME ONE Stop: 06/17/17 22:02 Last Admin: 06/17/17 22:29 Dose: 25 mls/hr Levofloxacin/Dextrose 750 mg/ (Premix) 150 mls @ 100 mls/hr IV Q48H [facility] Last Admin: 06/19/17 21:04 Dose: 100 mls/hr Furosemide 100 mg/ Sodium (Chloride) 100 mls @ 4 mls/hr IV TITRATE [facility]; Protocol Last Admin: 06/18/17 20:49 Dose: 4 mls/hr Magnesium Sulfate 2 gm/ Premix 50 mls @ 25 mls/hr IV ONETIME ONE Stop: 06/20/17 18:44 Last Admin: 06/20/17 17:03 Dose: 25 mls/hr Furosemide 100 mg/ Sodium (Chloride) 100 mls @ 4 mls/hr IV TITRATE [facility] Stop: 06/23/17 10:00 Last Admin: 06/22/17 11:38 Dose: 4 mg/hr, 4 mls/hr Magnesium Hydroxide (Milk Of Magnesia) 30 ml PO ONETIME PRN PRN Reason: Constipation Magnesium Oxide (Magnesium Oxide) 800 mg PO ONETIME ONE Stop: 06/22/17 14:16 Last Admin: 06/22/17 14:28 Dose: 800 mg Metolazone (Zaroxolyn) 2.5 mg PO TuThSa@0900 [facility] Last Admin: 06/19/17 09:25 Dose: 2.5 mg Non-Formulary Medication (Sitagliptin) 50 mg PO DAILY [facility] Last Admin: 06/19/17 19:34 Dose: Not Given Ondansetron HCl (Zofran) 4 mg IVPUSH ONETIME ONE Stop: 06/17/17 17:58 Last Admin: 06/17/17 18:08 Dose: 4 mg Oral Electrolytes (Thermotabs) 2 each PO BID@1130,1400 [facility] Stop: 06/20/17 14:01 Last Admin: 06/20/17 14:17 Dose: 2 each Oxybutynin Chloride (Oxybutynin Er) 10 mg PO DAILY [facility] Last Admin: 06/21/17 08:59 Dose: 10 mg Potassium Chloride (Klor-Con M20) 20 meq PO DAILY [facility] Last Admin: 06/21/17 08:58 Dose: 20 meq Warfarin Sodium (Coumadin) 2 mg PO MoWeFr@1800 [facility] Last Admin: 06/18/17 18:12 Dose: 2 mg Warfarin Sodium (Coumadin) 4 mg PO SuTuThSa@1800 [facility] Warfarin Sodium (Coumadin) 5 mg PO ONETIME ONE Stop: 06/19/17 18:01 Last Admin: 06/19/17 17:18 Dose: 5 mg Warfarin Sodium (Coumadin) 2 mg PO ONETIME ONE Stop: 06/20/17 18:01 Last Admin: 06/20/17 17:03 Dose: 2 mg Warfarin Sodium (Coumadin) 4 mg PO ONETIME ONE Stop: 06/21/17 18:01 Last Admin: 06/21/17 18:04 Dose: 4 mg Warfarin Sodium (Coumadin) 2 mg PO ONETIME ONE Stop: 06/22/17 18:01 Last Admin: 06/22/17 17:46 Dose: Not Given - Exam Quality Assessment: Supplemental Oxygen, DVT Prophylaxis General: Alert, Oriented, Cooperative, No Acute Distress HEENT: Pupils Equal, Pupils Reactive, EOMI Neck: Trachea Midline, No JVD Lungs: Normal Respiratory Effort Cardiovascular: Regular Rate, Regular Rhythm GI/Abdominal Exam: Normal Bowel Sounds, Soft, Non-Tender, No Organomegaly, No Distention (Female) Exam: Deferred Back Exam: Normal Inspection Extremities: Normal Inspection, Non-Tender, No Pedal Edema, Normal Capillary Refill Skin: Warm Neurological: No New Focal Deficit Psy/Mental Status: Alert, Normal Affect - Problem List Review Problem List Initiated/Reviewed/Updated: Yes - My Orders Last 24 Hours: My Active Orders 06/23/17 04:29 Urinary Catheter Insertion [Insert Urinary Catheter] [OM.PC] Stat 06/23/17 04:32 Urinary Catheter Assessment [RC] ASDIRECTED 06/23/17 12:00 Digoxin [Lanoxin] 125 mcg PO DAILY@1200 06/24/17 06:00 INR,PT,PROTHROMBIN TIME [COAG] DAILY 06/25/17 06:00 INR,PT,PROTHROMBIN TIME [COAG] DAILY 06/26/17 06:00 INR,PT,PROTHROMBIN TIME [COAG] DAILY - Plan Plan:: I/P: Acute: Exacerbation of CHF, Improving -Respiratory distress in ED -Per ED note was recently decreased from 80 mg lasix BID to 40mg in AM and 20mg in PM -Hypertensive on floor arrival--> stable now -BNP 5457-->6149-->5457-->3535-->2825-->4508 -CRP 1.7-->1.6-->1.1-->0.8-->3.3 -Lasix drip- Discontinued for 18hrs --> restarted 06/21/17 -Damon catheter for monitoring I&O -Will hold off 2 gram sodium diet as sodium is low -Will hold off fluid restriction for now as she appears somewhat dehydrated -Heart failure education -Titrate O2 as needed -Echo obtained 06/18/17 -LVEF 30-35% -Moderately decreased left ventricular systolic function -Mild concentric left ventricular hypertrophy -Restrictive (Grade 3) pattern of diastolic filling -Global mild hypokinesis. Septal movement is paradoxical and may be due to RV pacing of RV overload -Moderate Aortic valve stenosis -Mild aortic valve regurgitation -Inferior vena cava is normal sized with respiratory size variation greater than 50% -No significant change from 11/16/15 -Moderate biatrial dilation -Respiratory viral panel, Influenza, Blood cultures, urine cultures, mycoplasma pneumonia - all negative -Repeat CXR on 06/20/17--> No changes, Lungs are clear, Cardiomegaly, minimal pulmonary vascular prominence per Dr. House -Recommend going to the improvement lead for f/u stan for poor LVEF and pacemaker issues--> appointment changed from July to July 16 via -Digoxin levels elevated 06/20/17 at 2.3--> Digoxin held --> 1.5 today--> Restart Digoxin 125 tomorrow (06/23/17). Renal insufficiency, acute -Baseline appears to be eGFR very low to upper 40's -BUN 29-->31-->39-->54-->40-->39 -Creatinine 1.1-->1.3-->1.8-->1.9-->1.2-->1.3 -eGFR 47-->39-->26-->25-->42-->39 -Was on lasix drip. Held for 18 hours due to kidney function. Will restart Lasix today. -Monitor need for IV fluids - balance with worsening CHF Hyponatremia, Improving -Sodium 130 in ED-->125-->130-->134 -Baseline from all prior visits appears to be 129-131 -Good oral intake reported by nursing -Monitor AM labs -Continue Thermotabs BID Hypomagnesium, Resolved -1.1-->2.5-->1.9-->1.6-->2.5-->1.7 -Mg given 06/20/17, 06/22/17 Urinary Incontinence (urge and stress) -Lasix held for 18 hours, no improvement --> continue Lasix gtt. -Bladder training. -Oxybutynin previously increased from 5mg-->10mg without relief, will D/C today. -Sanctura 20mg q Daily started this AM (renal/geriatric dose) -Watch potassium levels--> 4.6-->4.4 -D/C potassium supplement -Will refer to Bladder Specialist, Joslyn Ramsey NP from [facility] who comes to [facility] monthly for f/u. -Bladder function test -We recommend a referral to Urologist if needed A Fib on coumadin; Subtheraputic INR-->therapeutic -INR 1.29-->1.26-->1.57-->1.97-->2.08-->2.11 -Pharmacy reports some discrepancy in how patient is taking warfarin -Pharmacy to dose warfarin -Lovenox until INR within therapeutic range--> Lovenox stopped 06/20/17. 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 Chino at [facility] DC 06/25/17 to [facility] LOS >96hrs due to slow response to treatment and poor kidney function.
[2017-06-23] MEDS: Spironolactone 25 MG Tab PO SCH (14:13)
[2017-06-23] MEDS: Digoxin 125 MCG Tab PO SCH (14:14)
[2017-06-23] MEDS: Furosemide 40 MG Tab PO SCH (14:22)
[2017-06-23] MEDS ORDERED: Warfarin 2 MG Tab PO ONE (18:00)
[2017-06-23] MEDS ORDERED: Magnesium Sulfate/Water 2 GM in Premix Bag 1 BAG IV ONE (20:02)
[2017-06-23] MEDS: Simvastatin 10 MG Tab PO SCH (21:59)
[2017-06-23] MEDS: Docusate Sodium 100 MG Cap PO SCH (21:59)
[2017-06-23] MEDS: Levofloxacin 750 MG Tab PO SCH (23:00)
[2017-06-23] MEDS ORDERED: Levofloxacin 750 MG Tab PO ONE (23:00)
[2017-06-24] MEDS: Pantoprazole 40 MG Tab.CR PO SCH (06:23)
[2017-06-24] MEDS: Furosemide 40 MG Tab PO SCH ×2 (06:23→14:44)
[2017-06-24] MEDS: Levothyroxine 25 MCG Tab PO SCH (06:24)
[2017-06-24] MEDS: Trospium 20 MG Tab PO SCH (06:28)
--- NOTE | 2017-06-24 08:20 | PCM.PN ---
- General Info Date of Service: 06/24/17 Admission Dx/Problem (Free Text): Hyponatremia Subjective Update: Follow Up Functional Status: Reports: Pain Controlled, Tolerating Diet, Ambulating, Urinating. Denies: New Symptoms - Review of Systems General: Denies: Fever, Weakness, Fatigue, Malaise, Chills HEENT: Denies: No Symptoms Pulmonary: Denies: Shortness of Breath Cardiovascular: Reports: Chest Pain, Edema. Denies: Palpitations, Dyspnea on Exertion, Lightheadedness Gastrointestinal: Reports: Nausea. Denies: Abdominal Pain, Vomiting Genitourinary: Reports: No Symptoms Musculoskeletal: Reports: No Symptoms Skin: Reports: No Symptoms Neurological: Reports: Gait Disturbance. Denies: Confusion, Difficulty Walking , Weakness Psychiatric: Denies: Depression, Anxiety, Agitation, Hallucinations Systems Review Comment:: No significant overnight or acute issues. She seems to be doing just fine. She has no concerns or complaints this morning. She is afebrile with persistent leukocytosis. - Patient Data Vitals - Most Recent: Last Vital Signs Temp 36.7 C 06/23/17 21:48 Pulse 76 06/23/17 21:58 Resp 16 06/23/17 21:48 BP 127/58 L 06/23/17 21:58 Pulse Ox 96 06/23/17 21:48 Weight - Most Recent: 63.911 kg I&O - Last 24 Hours: Intake & Output 06/23/17 06/24/17 06/24/17 22:59 06:59 14:59 Intake Total 754 450 Output Total 200 325 Balance 554 125 Lab Results Last 24 Hours: Laboratory Results - last 24 hr 06/23/17 06/23/17 06/23/17 Range/Units 10:29 17:24 22:15 WBC (3.98-10.04) K/mm3 RBC (3.98-5.22) M/mm3 Hgb (11.2-15.7) gm/L Hct (34.1-44.9) % MCV (79.4-94.8) fl MCH (25.6-32.2) pg MCHC (32.2-35.5) g/dl RDW Std Deviation (36.4-46.3) fL Plt Count (182-369) K/mm3 MPV (9.4-12.3) fl Neut % (Auto) (34.0-71.1) % Lymph % (Auto) (19.3-51.7) % [place] % (Auto) (4.7-12.5) % Eos % (Auto) (0.7-5.8) Baso % (Auto) (0.1-1.2) % Neut # (Auto) (1.56-6.13) K/mm3 Lymph # (Auto) (1.18-3.74) K/mm3 [place] # (Auto) (0.24-0.36) K/mm3 Eos # (Auto) (0.04-0.36) K/mm3 Baso # (Auto) (0.01-0.08) K/mm3 Manual Slide Review PT (8.0-13.0) SECONDS INR POC Glucose 165 H 133 H 129 H (83-110) mg/dL Lactic Acid (0.4-2.0) mmol/L Magnesium (1.8-2.4) mg/dl C-Reactive Protein (<1.0) mg/dL 06/24/17 06/24/17 06/24/17 Range/Units 06:26 06:35 06:35 WBC 17.58 H (3.98-10.04) K/mm3 RBC 4.28 (3.98-5.22) M/mm3 Hgb 12.4 (11.2-15.7) gm/L Hct 38.3 (34.1-44.9) % MCV 89.5 (79.4-94.8) fl MCH 29.0 (25.6-32.2) pg MCHC 32.4 (32.2-35.5) g/dl RDW Std Deviation 46.1 (36.4-46.3) fL Plt Count 388 H (182-369) K/mm3 MPV 9.6 (9.4-12.3) fl Neut % (Auto) 57.0 (34.0-71.1) % Lymph % (Auto) 32.5 (19.3-51.7) % [place] % (Auto) 6.4 (4.7-12.5) % Eos % (Auto) 3.4 (0.7-5.8) Baso % (Auto) 0.2 (0.1-1.2) % Neut # (Auto) 10.04 H (1.56-6.13) K/mm3 Lymph # (Auto) 5.71 H (1.18-3.74) K/mm3 [place] # (Auto) 1.12 H (0.24-0.36) K/mm3 Eos # (Auto) 0.59 H (0.04-0.36) K/mm3 Baso # (Auto) 0.04 (0.01-0.08) K/mm3 Manual Slide Review Abnormal smear PT (8.0-13.0) SECONDS INR POC Glucose 161 H (83-110) mg/dL Lactic Acid (0.4-2.0) mmol/L Magnesium 2.1 (1.8-2.4) mg/dl C-Reactive Protein 6.7 H* (<1.0) mg/dL 06/24/17 06/24/17 Range/Units 06:35 06:35 WBC (3.98-10.04) K/mm3 RBC (3.98-5.22) M/mm3 Hgb (11.2-15.7) gm/L Hct (34.1-44.9) % MCV (79.4-94.8) fl MCH (25.6-32.2) pg MCHC (32.2-35.5) g/dl RDW Std Deviation (36.4-46.3) fL Plt Count (182-369) K/mm3 MPV (9.4-12.3) fl Neut % (Auto) (34.0-71.1) % Lymph % (Auto) (19.3-51.7) % [place] % (Auto) (4.7-12.5) % Eos % (Auto) (0.7-5.8) Baso % (Auto) (0.1-1.2) % Neut # (Auto) (1.56-6.13) K/mm3 Lymph # (Auto) (1.18-3.74) K/mm3 [place] # (Auto) (0.24-0.36) K/mm3 Eos # (Auto) (0.04-0.36) K/mm3 Baso # (Auto) (0.01-0.08) K/mm3 Manual Slide Review PT 24.4 H (8.0-13.0) SECONDS INR 2.26 POC Glucose (83-110) mg/dL Lactic Acid 1.1 (0.4-2.0) mmol/L Magnesium (1.8-2.4) mg/dl C-Reactive Protein (<1.0) mg/dL Jason Results Last 24 Hours: Microbiology 06/17/17 18:51 Aerobic Blood Culture - Preliminary Blood - Venous - Lab Draw NO GROWTH AFTER 6 DAYS Anaerobic Blood Culture - Preliminary NO GROWTH AFTER 6 DAYS 06/17/17 18:43 Aerobic Blood Culture - Preliminary Blood - Venous NO GROWTH AFTER 6 DAYS Anaerobic Blood Culture - Preliminary NO GROWTH AFTER 6 DAYS Med Orders - Current: Current Medications Acetaminophen (Tylenol) 650 mg PO Q6H PRN PRN Reason: Pain/Fever Last Admin: 06/18/17 06:46 Dose: 650 mg Aspirin (Halfprin) 81 mg PO DAILY [facility] Last Admin: 06/23/17 09:01 Dose: 81 mg Bisacodyl (Dulcolax) 10 mg RECTAL DAILY PRN PRN Reason: Constipation Last Admin: 06/21/17 06:15 Dose: 10 mg Dextrose/Water (Dextrose 50% In Water) 50 ml IVPUSH ASDIRECTED PRN PRN Reason: Hypoglycemia Digoxin (Lanoxin) 125 mcg PO DAILY@1200 [facility] Last Admin: 06/23/17 14:14 Dose: 125 mcg Docusate Sodium (Colace) 100 mg PO BEDTIME [facility] Last Admin: 06/23/17 21:59 Dose: 100 mg Ferrous Sulfate (Ferrous Sulfate) 325 mg PO DAILY [facility] Last Admin: 06/23/17 09:00 Dose: 325 mg Furosemide (Lasix) 40 mg PO BIDDIURETIC [facility] Last Admin: 06/24/17 06:23 Dose: 40 mg Gabapentin (Neurontin) 300 mg PO TID [facility] Last Admin: 06/23/17 21:59 Dose: 300 mg Hydralazine HCl (Apresoline) 20 mg IVPUSH Q6H PRN PRN Reason: Hypertension Insulin Aspart (Novolog) 0 unit SUBCUT QIDACANDBED [facility]; Protocol Last Admin: 06/23/17 22:26 Dose: Not Given Levothyroxine Sodium (Levothyroxine) 25 mcg PO ACBREAKFAST [facility] Last Admin: 06/24/17 06:24 Dose: 25 mcg Magnesium Hydroxide (Milk Of Magnesia) 30 ml PO DAILY PRN PRN Reason: Constipation Last Admin: 06/21/17 06:22 Dose: 30 ml Metoprolol Tartrate (Lopressor) 100 mg PO BID [facility] Last Admin: 06/23/17 21:58 Dose: 100 mg Pantoprazole Sodium (Protonix) 40 mg PO DAILY@0700 [facility] Last Admin: 06/24/17 06:23 Dose: 40 mg Simvastatin (Zocor) 10 mg PO BEDTIME [facility] Last Admin: 06/23/17 21:59 Dose: 10 mg Spironolactone (Aldactone) 12.5 mg PO DAILY [facility] Last Admin: 06/23/17 14:13 Dose: 12.5 mg Temazepam (Restoril) 7.5 mg PO BEDTIME PRN PRN Reason: Insomnia Last Admin: 06/22/17 02:22 Dose: 7.5 mg Trospium (Sanctura) 20 mg PO ACBREAKFAST [facility] Last Admin: 06/24/17 06:28 Dose: 20 mg Warfarin Sodium (Pharmacy To Dose - Warfarin) 1 dose .XX ASDIRECTED [facility] Discontinued Medications Acetaminophen (Tylenol) 650 mg PO NOW ONE Stop: 06/22/17 13:38 Last Admin: 06/22/17 14:28 Dose: 650 mg Al Hydroxide/Mg Hydroxide (Mag-Al Plus) 15 ml PO ONETIME ONE Stop: 06/18/17 15:51 Last Admin: 06/18/17 15:51 Dose: 15 ml Digoxin (Lanoxin) 125 mcg PO DAILY [facility] Last Admin: 06/21/17 08:58 Dose: 125 mcg Enoxaparin Sodium (Lovenox) 40 mg SUBCUT Q24H [facility] Last Admin: 06/17/17 22:30 Dose: 40 mg Enoxaparin Sodium (Lovenox) 30 mg SUBCUT Q24H [facility] Enoxaparin Sodium (Lovenox) 30 mg SUBCUT Q24H [facility] Last Admin: 06/19/17 21:01 Dose: 30 mg Furosemide (Lasix) 40 mg IVPUSH NOW ONE Stop: 06/17/17 19:03 Last Admin: 06/17/17 19:20 Dose: 40 mg Sodium Chloride (Normal Saline) 1,000 mls @ 150 mls/hr IV ASDIRECTED [facility] Last Admin: 06/17/17 18:08 Dose: 150 mls/hr Magnesium Sulfate 4 gm/ Premix 100 mls @ 50 mls/hr IV ONETIME ONE Stop: 06/17/17 21:47 Last Admin: 06/17/17 20:03 Dose: Not Given Magnesium Sulfate 2 gm/ Premix 50 mls @ 25 mls/hr IV ONETIME ONE Stop: 06/17/17 22:01 Last Admin: 06/17/17 20:11 Dose: 25 mls/hr Magnesium Sulfate 2 gm/ Premix 50 mls @ 25 mls/hr IV ONETIME ONE Stop: 06/17/17 22:02 Last Admin: 06/17/17 22:29 Dose: 25 mls/hr Levofloxacin/Dextrose 750 mg/ (Premix) 150 mls @ 100 mls/hr IV Q48H [facility] Last Admin: 06/19/17 21:04 Dose: 100 mls/hr Furosemide 100 mg/ Sodium (Chloride) 100 mls @ 4 mls/hr IV TITRATE [facility]; Protocol Last Admin: 06/18/17 20:49 Dose: 4 mls/hr Magnesium Sulfate 2 gm/ Premix 50 mls @ 25 mls/hr IV ONETIME ONE Stop: 06/20/17 18:44 Last Admin: 06/20/17 17:03 Dose: 25 mls/hr Furosemide 100 mg/ Sodium (Chloride) 100 mls @ 4 mls/hr IV TITRATE [facility] Stop: 06/23/17 10:00 Last Admin: 06/22/17 11:38 Dose: 4 mg/hr, 4 mls/hr Magnesium Sulfate 2 gm/ Premix 50 mls @ 25 mls/hr IV ONETIME ONE Stop: 06/23/17 22:01 Last Admin: 06/23/17 21:59 Dose: 25 mls/hr Levofloxacin (Levaquin) 750 mg PO Q48H [facility] Stop: 06/23/17 21:01 Last Admin: 06/23/17 23:00 Dose: Not Given Levofloxacin (Levaquin) 750 mg PO ONETIME ONE Stop: 06/23/17 23:01 Last Admin: 06/23/17 23:00 Dose: 750 mg Magnesium Hydroxide (Milk Of Magnesia) 30 ml PO ONETIME PRN PRN Reason: Constipation Magnesium Oxide (Magnesium Oxide) 800 mg PO ONETIME ONE Stop: 06/22/17 14:16 Last Admin: 03/30/18 14:28 Dose: 800 mg Metolazone (Zaroxolyn) 2.5 mg PO TuThSa@0900 [facility] Last Admin: 06/19/17 09:25 Dose: 2.5 mg Non-Formulary Medication (Sitagliptin) 50 mg PO DAILY [facility] Last Admin: 06/19/17 19:34 Dose: Not Given Ondansetron HCl (Zofran) 4 mg IVPUSH ONETIME ONE Stop: 06/17/17 17:58 Last Admin: 06/17/17 18:08 Dose: 4 mg Oral Electrolytes (Thermotabs) 2 each PO BID@1130,1400 [facility] Stop: 06/20/17 14:01 Last Admin: 06/20/17 14:17 Dose: 2 each Oxybutynin Chloride (Oxybutynin Er) 10 mg PO DAILY [facility] Last Admin: 06/21/17 08:59 Dose: 10 mg Potassium Chloride (Klor-Con M20) 20 meq PO DAILY [facility] Last Admin: 06/21/17 08:58 Dose: 20 meq Warfarin Sodium (Coumadin) 2 mg PO MoWeFr@1800 [facility] Last Admin: 06/18/17 18:12 Dose: 2 mg Warfarin Sodium (Coumadin) 4 mg PO SuTuThSa@1800 [facility] Warfarin Sodium (Coumadin) 5 mg PO ONETIME ONE Stop: 06/19/17 18:01 Last Admin: 06/19/17 17:18 Dose: 5 mg Warfarin Sodium (Coumadin) 2 mg PO ONETIME ONE Stop: 06/20/17 18:01 Last Admin: 06/20/17 17:03 Dose: 2 mg Warfarin Sodium (Coumadin) 4 mg PO ONETIME ONE Stop: 06/21/17 18:01 Last Admin: 06/21/17 18:04 Dose: 4 mg Warfarin Sodium (Coumadin) 2 mg PO ONETIME ONE Stop: 06/22/17 18:01 Last Admin: 06/22/17 17:46 Dose: Not Given Warfarin Sodium (Coumadin) 2 mg PO ONETIME ONE Stop: 06/23/17 18:01 Last Admin: 06/23/17 17:44 Dose: 2 mg - Exam General: Alert, Oriented, Cooperative, No Acute Distress HEENT: Pupils Equal, Pupils Reactive, Mucous Membr. Moist/[place] Neck: Supple, Trachea Midline, No JVD Lungs: Clear to Auscultation, Normal Respiratory Effort Cardiovascular: Regular Rate, Regular Rhythm, Murmurs, Other (pacemaker on anterior upper thorax) GI/Abdominal Exam: Normal Bowel Sounds, Soft, Non-Tender, No Organomegaly, No Distention, No Abnormal Bruit (Female) Exam: Deferred Back Exam: Normal Inspection, Decreased Range of Motion Extremities: Normal Inspection, Normal Range of Motion, No Pedal Edema, Normal Capillary Refill Peripheral Pulses: 2+: Dorsalis Pedis (L), Dorsalis Pedis (R) Skin: Warm, Dry, Intact Neurological: No New Focal Deficit Psy/Mental Status: Alert, Normal Affect, Normal Mood - Problem List Review Problem List Initiated/Reviewed/Updated: Yes - Plan Plan:: Assessment/Plan: Acute: Exacerbation of CHF, Continues to improve -Respiratory distress in ED -Per ED note was recently decreased from 80 mg lasix BID to 40mg in AM and 20mg in PM -Hypertensive on floor arrival--> stable now -BNP 5457-->6149-->5457-->3535-->2825-->4508--> now 2702 -CRP 1.7-->1.6-->1.1-->0.8-->3.3--> 6.7 -Lasix drip- Discontinued for 18hrs --> restarted 06/21/17--> now on oral lasix 40 mg po BID -Damon catheter for monitoring I&O -Will hold off 2 gram sodium diet as sodium is low -Will hold off fluid restriction for now as she appears somewhat dehydrated -Heart failure education -Titrate O2 as needed -Echo obtained 06/18/17 -LVEF 30-35% -Moderately decreased left ventricular systolic function -Mild concentric left ventricular hypertrophy -Restrictive (Grade 3) pattern of diastolic filling -Global mild hypokinesis. Septal movement is paradoxical and may be due to RV pacing of RV overload -Moderate Aortic valve stenosis -Mild aortic valve regurgitation -Inferior vena cava is normal sized with respiratory size variation greater than 50% -No significant change from 11/16/15 -Moderate biatrial dilation -Respiratory viral panel, Influenza, Blood cultures, urine cultures, mycoplasma pneumonia - all negative -Repeat CXR on 06/20/17--> No changes, Lungs are clear, Cardiomegaly, minimal pulmonary vascular prominence per Dr. House -Recommend going to the dynamometer repairer for f/u stan for poor LVEF and pacemaker issues--> appointment changed from July to July 16 via CM -Digoxin levels elevated 06/20/17 at 2.3--> Digoxin held --> due to 1.5 --> Restarted Digoxin 125 on (06/23/17) Urinary Incontinence (urge and stress) -Lasix held for 18 hours, no improvement --> continue Lasix gtt; now on oral diuretic regimen -Bladder training. -Oxybutynin previously increased from 5mg-->10mg without relief, will D/C'd -Sanctura 20mg q Daily started this AM (renal/geriatric dose) -Watch potassium levels--> 4.6-->4.4 -D/C potassium supplement -Will refer to Bladder Specialist, Joslyn Ramsey NP from [facility] who comes to [facility] monthly for f/u. -Bladder function test -We recommend a referral to Urologist if needed A Fib on Coumadin; HR controlled -INR is now 2.26 -Pharmacy to dose warfarin -Daily INR Leukocytosis - WBC is 17; CRP 6.7 - Respiratory Panel, Screening Influenza, Blood Cultures and UA - all negative - No respiratory issues and afebrile - Received Levaquin 750 mg po yesterday; will resume dose in AM - May consider repeating infectious work up if labs does not improve Resolved: Hyponatremia -Likely 2/2 Metolazone -Sodium 130 in ED-->125-->130-->134--> 136 -Baseline from all prior visits appears to be 129-131 -Good oral intake reported by nursing -Monitor AM labs Hypomagnesium -1.1-->2.5-->1.9-->1.6-->2.5-->1.7 -Mg given 06/20/17, 06/22/17 Renal insufficiency -Baseline appears to be eGFR very low to upper 40's -BUN 29-->31-->39-->54-->40-->39 -Creatinine 1.1-->1.3-->1.8-->1.9-->1.2-->1.3 -eGFR 47-->39-->26-->25-->42-->39 back to basline stage III -Was on lasix drip. Held for 18 hours due to kidney function and now back to oral dosing -Monitor need for IV fluids - balance with worsening CHF Chronic: Impaired vision Angina Hx/o Blood clots/VTE/PE on Coumadin CHF Heart Murmur HLD HTN Hx/o HI Pacemaker GERD Arthritis Osteoporosis Hx/o CVA Type II DM Hx/o Appendecomty Hx/o Cholecystectomy Plan: She remains clinically stable Continue current treatment SW/ for discharge planning Continue PT/OT Routine AM labs GI prophylaxis: Pepcid DVT/PE prophylaxis: On warfarin Other orders as indicated above Code status: DNR/DNI; PCP: Dr. Chino at [facility] Possible d/c tomorrow to [facility] LOS > 96hrs due to slow response to treatment
[2017-06-24] MEDS: Insulin Aspart 100 Units/ML 3 ML Pen SUBCUT SCH ×4 (08:57→23:02)
[2017-06-24] MEDS: Gabapentin 300 MG Cap PO SCH ×3 (09:02→20:08)
[2017-06-24] MEDS: Spironolactone 25 MG Tab PO SCH (09:07)
[2017-06-24] MEDS: Ferrous Sulfate 325 MG Tab PO SCH (09:07)
[2017-06-24] MEDS: Metoprolol Tartrate 100 MG Tab PO SCH ×2 (09:08→20:08)
[2017-06-24] MEDS: Aspirin 81 MG Tab.EC PO SCH (09:08)
--- NOTE | 2017-06-24 09:18 | CR ---
Chest: 2 views of the chest were obtained. Comparison: Previous chest x-ray of 06/20/17. Heart is enlarged. Pacemaker is noted. Lung markings are slightly increased which appear stable. No acute parenchymal densities are seen within either lung. Bony structures appear without significant change from previous chest x-ray. Impression: 1. Stable chest x-ray from previous exam. Nothing acute is identified. Diagnostic code #2
[2017-06-24] MEDS: Digoxin 125 MCG Tab PO SCH (11:43)
[2017-06-24] MEDS ORDERED: Warfarin 4 MG Tab PO ONE (18:00)
[2017-06-24] MEDS: Simvastatin 10 MG Tab PO SCH (20:07)
[2017-06-24] MEDS: Docusate Sodium 100 MG Cap PO SCH (20:08)
[2017-06-25] MEDS: Trospium 20 MG Tab PO SCH (06:34)
[2017-06-25] MEDS: Levothyroxine 25 MCG Tab PO SCH (06:34)
[2017-06-25] MEDS: Furosemide 40 MG Tab PO SCH ×2 (06:34→14:10)
[2017-06-25] MEDS: Pantoprazole 40 MG Tab.CR PO SCH (06:34)
[2017-06-25] MEDS: Insulin Aspart 100 Units/ML 3 ML Pen SUBCUT SCH ×4 (08:23→21:19)
[2017-06-25] MEDS: Spironolactone 25 MG Tab PO SCH (08:26)
[2017-06-25] MEDS: Ferrous Sulfate 325 MG Tab PO SCH (08:26)
[2017-06-25] MEDS: Metoprolol Tartrate 100 MG Tab PO SCH ×2 (08:27→21:17)
[2017-06-25] MEDS: Aspirin 81 MG Tab.EC PO SCH (08:27)
[2017-06-25] MEDS: Gabapentin 300 MG Cap PO SCH ×3 (08:27→21:16)
[2017-06-25] MEDS: Saccharomyces Boulardii (Probiotic) 250 MG Cap PO SCH (08:27)
--- NOTE | 2017-06-25 11:34 | PCM.PN ---
- General Info Date of Service: 06/25/17 Admission Dx/Problem (Free Text): Hyponatremia Subjective Update: In to see Jenna. She is sitting in a chair. Overall she is feeling much better. Good appetite. She still feels like she has to go the restroom frequently- Damon removal (06/22), day 3--06/25/17. Continue bladder training and new urinary incontinence medication. Her CBC and CRP are elevated-Will likely discharge tomorrow, pending new lab results. No other concerns. Nursing has no concerns. Functional Status: Reports: Pain Controlled - Review of Systems General: Reports: Weakness (baseline), Fatigue (improving). Denies: Fever, Chills HEENT: Reports: No Symptoms Pulmonary: Reports: Shortness of Breath. Denies: Cough, Wheezing Cardiovascular: Reports: Dyspnea on Exertion. Denies: Chest Pain, Palpitations Gastrointestinal: Reports: No Symptoms. Denies: Abdominal Pain, Constipation, Decreased Appetite, Diarrhea, Nausea, Vomiting Genitourinary: Reports: Urgency. Denies: Dysuria, Burning, Pain Musculoskeletal: Reports: No Symptoms Skin: Reports: No Symptoms Neurological: Reports: No Symptoms Psychiatric: Reports: No Symptoms - Patient Data Vitals - Most Recent: Last Vital Signs Temp 97.3 F 06/25/17 07:25 Pulse 80 06/25/17 08:27 Resp 17 06/25/17 07:25 BP 133/83 06/25/17 08:27 Pulse Ox 97 06/25/17 07:25 Weight - Most Recent: 139 lb 1.6 oz I&O - Last 24 Hours: Intake & Output 06/24/17 06/25/17 06/25/17 22:59 06:59 14:59 Intake Total 900 400 120 Output Total 700 700 Balance 200 -300 120 Lab Results Last 24 Hours: Laboratory Results - last 24 hr 06/24/17 06/24/17 06/24/17 Range/Units 11:27 11:56 16:51 WBC (3.98-10.04) K/mm3 RBC (3.98-5.22) M/mm3 Hgb (11.2-15.7) gm/L Hct (34.1-44.9) % MCV (79.4-94.8) fl MCH (25.6-32.2) pg MCHC (32.2-35.5) g/dl RDW Std Deviation (36.4-46.3) fL Plt Count (182-369) K/mm3 MPV (9.4-12.3) fl Neut % (Auto) (34.0-71.1) % Lymph % (Auto) (19.3-51.7) % [place] % (Auto) (4.7-12.5) % Eos % (Auto) (0.7-5.8) Baso % (Auto) (0.1-1.2) % Neut # (Auto) (1.56-6.13) K/mm3 Lymph # (Auto) (1.18-3.74) K/mm3 [place] # (Auto) (0.24-0.36) K/mm3 Eos # (Auto) (0.04-0.36) K/mm3 Baso # (Auto) (0.01-0.08) K/mm3 Manual Slide Review PT (8.0-13.0) SECONDS INR Sodium (136-145) mEq/L Potassium (3.5-5.1) mEq/L Chloride (98-107) mEq/L Carbon Dioxide (21-32) mEq/L Anion Gap (5-15) BUN (7-18) mg/dL Creatinine (0.55-1.02) mg/dL Est Cr Clr Drug Dosing mL/min Estimated GFR (MDRD) (>60) mL/min BUN/Creatinine Ratio (14-18) Glucose (83-115) mg/dL POC Glucose 136 H 130 H (83-110) mg/dL Lactic Acid (0.4-2.0) mmol/L Calcium (8.5-10.1) mg/dL Magnesium (1.8-2.4) mg/dl C-Reactive Protein (<1.0) mg/dL Urine Color Yellow (Yellow) Urine Appearance Clear (Clear) Urine pH 6.5 (5.0-8.0) Ur Specific [place] 1.015 (1.005-1.030) Urine Protein Trace H (Negative) Urine Glucose (UA) Negative (Negative) Urine Ketones Negative (Negative) Urine Occult Blood Negative (Negative) Urine Nitrite Negative (Negative) Urine Bilirubin Negative (Negative) Urine Urobilinogen 0.2 (0.2-1.0) Ur Leukocyte Esterase Negative (Negative) Urine RBC Not seen (0-5) /hpf Urine WBC 0-5 (0-5) /hpf Ur Epithelial Cells 0-5 (0-5) /hpf Urine Bacteria Not seen (FEW) /hpf Hyaline Casts 0-5 (0-5) /lpf Urine Mucus Not seen (FEW) /hpf 06/24/17 06/25/17 06/25/17 Range/Units 23:00 06:30 06:30 WBC 17.28 H (3.98-10.04) K/mm3 RBC 4.11 (3.98-5.22) M/mm3 Hgb 11.9 (11.2-15.7) gm/L Hct 37.2 (34.1-44.9) % MCV 90.5 (79.4-94.8) fl MCH 29.0 (25.6-32.2) pg MCHC 32.0 L (32.2-35.5) g/dl RDW Std Deviation 46.7 H (36.4-46.3) fL Plt Count 393 H (182-369) K/mm3 MPV 9.7 (9.4-12.3) fl Neut % (Auto) 56.5 (34.0-71.1) % Lymph % (Auto) 32.5 (19.3-51.7) % [place] % (Auto) 6.4 (4.7-12.5) % Eos % (Auto) 4.1 (0.7-5.8) Baso % (Auto) 0.2 (0.1-1.2) % Neut # (Auto) 9.77 H (1.56-6.13) K/mm3 Lymph # (Auto) 5.62 H (1.18-3.74) K/mm3 [place] # (Auto) 1.10 H (0.24-0.36) K/mm3 Eos # (Auto) 0.70 H (0.04-0.36) K/mm3 Baso # (Auto) 0.03 (0.01-0.08) K/mm3 Manual Slide Review Abnormal smear PT (8.0-13.0) SECONDS INR Sodium 136 (136-145) mEq/L Potassium 4.0 (3.5-5.1) mEq/L Chloride 95 L (98-107) mEq/L Carbon Dioxide 36 H (21-32) mEq/L Anion Gap 9.0 (5-15) BUN 58 H (7-18) mg/dL Creatinine 1.6 H (0.55-1.02) mg/dL Est Cr Clr Drug Dosing 17.99 mL/min Estimated GFR (MDRD) 30 (>60) mL/min BUN/Creatinine Ratio 36.3 H (14-18) Glucose 118 H (83-115) mg/dL POC Glucose 225 H (83-110) mg/dL Lactic Acid (0.4-2.0) mmol/L Calcium 9.5 (8.5-10.1) mg/dL Magnesium 2.1 (1.8-2.4) mg/dl C-Reactive Protein 6.7 H* (<1.0) mg/dL Urine Color (Yellow) Urine Appearance (Clear) Urine pH (5.0-8.0) Ur Specific [place] (1.005-1.030) Urine Protein (Negative) Urine Glucose (UA) (Negative) Urine Ketones (Negative) Urine Occult Blood (Negative) Urine Nitrite (Negative) Urine Bilirubin (Negative) Urine Urobilinogen (0.2-1.0) Ur Leukocyte Esterase (Negative) Urine RBC (0-5) /hpf Urine WBC (0-5) /hpf Ur Epithelial Cells (0-5) /hpf Urine Bacteria (FEW) /hpf Hyaline Casts (0-5) /lpf Urine Mucus (FEW) /hpf 06/25/17 06/25/17 06/25/17 Range/Units 06:30 06:30 06:34 WBC (3.98-10.04) K/mm3 RBC (3.98-5.22) M/mm3 Hgb (11.2-15.7) gm/L Hct (34.1-44.9) % MCV (79.4-94.8) fl MCH (25.6-32.2) pg MCHC (32.2-35.5) g/dl RDW Std Deviation (36.4-46.3) fL Plt Count (182-369) K/mm3 MPV (9.4-12.3) fl Neut % (Auto) (34.0-71.1) % Lymph % (Auto) (19.3-51.7) % [place] % (Auto) (4.7-12.5) % Eos % (Auto) (0.7-5.8) Baso % (Auto) (0.1-1.2) % Neut # (Auto) (1.56-6.13) K/mm3 Lymph # (Auto) (1.18-3.74) K/mm3 [place] # (Auto) (0.24-0.36) K/mm3 Eos # (Auto) (0.04-0.36) K/mm3 Baso # (Auto) (0.01-0.08) K/mm3 Manual Slide Review PT 22.2 H (8.0-13.0) SECONDS INR 2.06 Sodium (136-145) mEq/L Potassium (3.5-5.1) mEq/L Chloride (98-107) mEq/L Carbon Dioxide (21-32) mEq/L Anion Gap (5-15) BUN (7-18) mg/dL Creatinine (0.55-1.02) mg/dL Est Cr Clr Drug Dosing mL/min Estimated GFR (MDRD) (>60) mL/min BUN/Creatinine Ratio (14-18) Glucose (83-115) mg/dL POC Glucose 210 H (83-110) mg/dL Lactic Acid 1.8 (0.4-2.0) mmol/L Calcium (8.5-10.1) mg/dL Magnesium (1.8-2.4) mg/dl C-Reactive Protein (<1.0) mg/dL Urine Color (Yellow) Urine Appearance (Clear) Urine pH (5.0-8.0) Ur Specific [place] (1.005-1.030) Urine Protein (Negative) Urine Glucose (UA) (Negative) Urine Ketones (Negative) Urine Occult Blood (Negative) Urine Nitrite (Negative) Urine Bilirubin (Negative) Urine Urobilinogen (0.2-1.0) Ur Leukocyte Esterase (Negative) Urine RBC (0-5) /hpf Urine WBC (0-5) /hpf Ur Epithelial Cells (0-5) /hpf Urine Bacteria (FEW) /hpf Hyaline Casts (0-5) /lpf Urine Mucus (FEW) /hpf Jason Results Last 24 Hours: Microbiology 06/17/17 18:51 Aerobic Blood Culture - Final Blood - Venous - Lab Draw NO GROWTH AFTER 7 DAYS Anaerobic Blood Culture - Final NO GROWTH AFTER 7 DAYS 06/17/17 18:43 Aerobic Blood Culture - Final Blood - Venous NO GROWTH AFTER 7 DAYS Anaerobic Blood Culture - Final NO GROWTH AFTER 7 DAYS Med Orders - Current: Current Medications Acetaminophen (Tylenol) 650 mg PO Q6H PRN PRN Reason: Pain/Fever Last Admin: 06/18/17 06:46 Dose: 650 mg Aspirin (Halfprin) 81 mg PO DAILY [facility] Last Admin: 06/25/17 08:27 Dose: 81 mg Bisacodyl (Dulcolax) 10 mg RECTAL DAILY PRN PRN Reason: Constipation Last Admin: 06/21/17 06:15 Dose: 10 mg Dextrose/Water (Dextrose 50% In Water) 50 ml IVPUSH ASDIRECTED PRN PRN Reason: Hypoglycemia Digoxin (Lanoxin) 125 mcg PO DAILY@1200 [facility] Last Admin: 06/24/17 11:43 Dose: 125 mcg Docusate Sodium (Colace) 100 mg PO BEDTIME [facility] Last Admin: 06/24/17 20:08 Dose: 100 mg Ferrous Sulfate (Ferrous Sulfate) 325 mg PO DAILY [facility] Last Admin: 06/25/17 08:26 Dose: 325 mg Furosemide (Lasix) 40 mg PO BIDDIURETIC [facility] Last Admin: 06/25/17 06:34 Dose: 40 mg Gabapentin (Neurontin) 300 mg PO TID [facility] Last Admin: 06/25/17 08:27 Dose: 300 mg Hydralazine HCl (Apresoline) 20 mg IVPUSH Q6H PRN PRN Reason: Hypertension Insulin Aspart (Novolog) 0 unit SUBCUT QIDACANDBED [facility]; Protocol Last Admin: 06/25/17 08:23 Dose: 2 units Levothyroxine Sodium (Levothyroxine) 25 mcg PO ACBREAKFAST [facility] Last Admin: 06/25/17 06:34 Dose: 25 mcg Magnesium Hydroxide (Milk Of Magnesia) 30 ml PO DAILY PRN PRN Reason: Constipation Last Admin: 06/21/17 06:22 Dose: 30 ml Metoprolol Tartrate (Lopressor) 100 mg PO BID [facility] Last Admin: 06/25/17 08:27 Dose: 100 mg Pantoprazole Sodium (Protonix) 40 mg PO DAILY@0700 [facility] Last Admin: 06/25/17 06:34 Dose: 40 mg Saccharomyces Boulardii (Florastor) 250 mg PO DAILY [facility] Last Admin: 06/25/17 08:27 Dose: 250 mg Simvastatin (Zocor) 10 mg PO BEDTIME [facility] Last Admin: 06/24/17 20:07 Dose: 10 mg Spironolactone (Aldactone) 12.5 mg PO DAILY [facility] Last Admin: 06/25/17 08:26 Dose: 12.5 mg Temazepam (Restoril) 7.5 mg PO BEDTIME PRN PRN Reason: Insomnia Last Admin: 06/22/17 02:22 Dose: 7.5 mg Trospium (Sanctura) 20 mg PO ACBREAKFAST [facility] Last Admin: 06/25/17 06:34 Dose: 20 mg Warfarin Sodium (Pharmacy To Dose - Warfarin) 1 dose .XX ASDIRECTED [facility] Warfarin Sodium (Coumadin) 2 mg PO ONETIME ONE Stop: 06/25/17 18:01 Discontinued Medications Acetaminophen (Tylenol) 650 mg PO NOW ONE Stop: 06/22/17 13:38 Last Admin: 06/22/17 14:28 Dose: 650 mg Al Hydroxide/Mg Hydroxide (Mag-Al Plus) 15 ml PO ONETIME ONE Stop: 06/18/17 15:51 Last Admin: 06/18/17 15:51 Dose: 15 ml Digoxin (Lanoxin) 125 mcg PO DAILY [facility] Last Admin: 06/21/17 08:58 Dose: 125 mcg Enoxaparin Sodium (Lovenox) 40 mg SUBCUT Q24H [facility] Last Admin: 06/17/17 22:30 Dose: 40 mg Enoxaparin Sodium (Lovenox) 30 mg SUBCUT Q24H [facility] Enoxaparin Sodium (Lovenox) 30 mg SUBCUT Q24H [facility] Last Admin: 06/19/17 21:01 Dose: 30 mg Furosemide (Lasix) 40 mg IVPUSH NOW ONE Stop: 06/17/17 19:03 Last Admin: 06/17/17 19:20 Dose: 40 mg Sodium Chloride (Normal Saline) 1,000 mls @ 150 mls/hr IV ASDIRECTED [facility] Last Admin: 06/17/17 18:08 Dose: 150 mls/hr Magnesium Sulfate 4 gm/ Premix 100 mls @ 50 mls/hr IV ONETIME ONE Stop: 06/17/17 21:47 Last Admin: 06/17/17 20:03 Dose: Not Given Magnesium Sulfate 2 gm/ Premix 50 mls @ 25 mls/hr IV ONETIME ONE Stop: 06/17/17 22:01 Last Admin: 06/17/17 20:11 Dose: 25 mls/hr Magnesium Sulfate 2 gm/ Premix 50 mls @ 25 mls/hr IV ONETIME ONE Stop: 06/17/17 22:02 Last Admin: 06/17/17 22:29 Dose: 25 mls/hr Levofloxacin/Dextrose 750 mg/ (Premix) 150 mls @ 100 mls/hr IV Q48H [facility] Last Admin: 06/19/17 21:04 Dose: 100 mls/hr Furosemide 100 mg/ Sodium (Chloride) 100 mls @ 4 mls/hr IV TITRATE [facility]; Protocol Last Admin: 06/18/17 20:49 Dose: 4 mls/hr Magnesium Sulfate 2 gm/ Premix 50 mls @ 25 mls/hr IV ONETIME ONE Stop: 06/20/17 18:44 Last Admin: 06/20/17 17:03 Dose: 25 mls/hr Furosemide 100 mg/ Sodium (Chloride) 100 mls @ 4 mls/hr IV TITRATE [facility] Stop: 06/23/17 10:00 Last Admin: 06/22/17 11:38 Dose: 4 mg/hr, 4 mls/hr Magnesium Sulfate 2 gm/ Premix 50 mls @ 25 mls/hr IV ONETIME ONE Stop: 06/23/17 22:01 Last Admin: 06/23/17 21:59 Dose: 25 mls/hr Levofloxacin (Levaquin) 750 mg PO Q48H [facility] Stop: 06/23/17 21:01 Last Admin: 06/23/17 23:00 Dose: Not Given Levofloxacin (Levaquin) 750 mg PO ONETIME ONE Stop: 06/23/17 23:01 Last Admin: 06/23/17 23:00 Dose: 750 mg Levofloxacin (Levaquin) 750 mg PO Q48H [facility] Magnesium Hydroxide (Milk Of Magnesia) 30 ml PO ONETIME PRN PRN Reason: Constipation Magnesium Oxide (Magnesium Oxide) 800 mg PO ONETIME ONE Stop: 06/22/17 14:16 Last Admin: 06/22/17 14:28 Dose: 800 mg Metolazone (Zaroxolyn) 2.5 mg PO TuThSa@0900 [facility] Last Admin: 06/19/17 09:25 Dose: 2.5 mg Non-Formulary Medication (Sitagliptin) 50 mg PO DAILY [facility] Last Admin: 06/19/17 19:34 Dose: Not Given Ondansetron HCl (Zofran) 4 mg IVPUSH ONETIME ONE Stop: 06/17/17 17:58 Last Admin: 06/17/17 18:08 Dose: 4 mg Oral Electrolytes (Thermotabs) 2 each PO BID@1130,1400 [facility] Stop: 06/20/17 14:01 Last Admin: 06/20/17 14:17 Dose: 2 each Oxybutynin Chloride (Oxybutynin Er) 10 mg PO DAILY [facility] Last Admin: 06/21/17 08:59 Dose: 10 mg Potassium Chloride (Klor-Con M20) 20 meq PO DAILY [facility] Last Admin: 06/21/17 08:58 Dose: 20 meq Warfarin Sodium (Coumadin) 2 mg PO MoWeFr@1800 [facility] Last Admin: 06/18/17 18:12 Dose: 2 mg Warfarin Sodium (Coumadin) 4 mg PO SuTuThSa@1800 [facility] Warfarin Sodium (Coumadin) 5 mg PO ONETIME ONE Stop: 06/19/17 18:01 Last Admin: 06/19/17 17:18 Dose: 5 mg Warfarin Sodium (Coumadin) 2 mg PO ONETIME ONE Stop: 06/20/17 18:01 Last Admin: 06/20/17 17:03 Dose: 2 mg Warfarin Sodium (Coumadin) 4 mg PO ONETIME ONE Stop: 06/21/17 18:01 Last Admin: 06/21/17 18:04 Dose: 4 mg Warfarin Sodium (Coumadin) 2 mg PO ONETIME ONE Stop: 06/22/17 18:01 Last Admin: 06/22/17 17:46 Dose: Not Given Warfarin Sodium (Coumadin) 2 mg PO ONETIME ONE Stop: 06/23/17 18:01 Last Admin: 06/23/17 17:44 Dose: 2 mg Warfarin Sodium (Coumadin) 4 mg PO ONETIME ONE Stop: 06/24/17 18:01 - Exam Quality Assessment: DVT Prophylaxis. No: Supplemental Oxygen, Urine Catheter General: Alert, Oriented HEENT: Pupils Equal, Pupils Reactive, EOMI, Mucous Membr. Moist/[place] Neck: Supple, Trachea Midline, No JVD Lungs: Clear to Auscultation, Normal Respiratory Effort. No: Rhonchi, Wheezing Cardiovascular: Regular Rate, Regular Rhythm, Murmurs (systolic) GI/Abdominal Exam: Normal Bowel Sounds, Soft, Non-Tender, No Organomegaly, No Distention, No Abnormal Bruit, No Mass, Pelvis Stable (Female) Exam: Deferred Back Exam: Normal Inspection, Full Range of Motion Extremities: Normal Inspection, Normal Range of Motion, Non-Tender, No Pedal Edema, Normal Capillary Refill Peripheral Pulses: 1+: Posterior Tibial (L), Posterior Tibial (R), Dorsalis Pedis (L), Dorsalis Pedis (R) Skin: Warm, Dry, Intact Neurological: No New Focal Deficit Psy/Mental Status: Alert, Normal Affect, Normal Mood - Problem List & Annotations (1) Acute exacerbation of congestive heart failure SNOMED Code(s): 37901849 Code(s): I50.9 - HEART FAILURE, UNSPECIFIED Status: Acute Priority: High Current Visit: Yes Qualifiers: Heart failure type: diastolic Qualified Code(s): I50.33 - Acute on chronic diastolic (congestive) heart failure (2) Hyponatremia with decreased serum osmolality SNOMED Code(s): 404595038 Code(s): E87.1 - HYPO-OSMOLALITY AND HYPONATREMIA Status: Acute Priority : High Current Visit: Yes (3) Chronic atrial fibrillation SNOMED Code(s): 801179441 Code(s): I48.2 - CHRONIC ATRIAL FIBRILLATION Status: Chronic Priority: Medium Current Visit: Yes (4) Diabetes mellitus SNOMED Code(s): 96334684 Code(s): E11.9 - TYPE 2 DIABETES MELLITUS WITHOUT COMPLICATIONS Status: Chronic Priority: Medium Current Visit: Yes Qualifiers: Diabetes mellitus type: type 2 Diabetes mellitus long term care social worker insulin use: unspecified alf insulin use status Diabetes mellitus complication status : without complication Qualified Code(s): E11.9 - Type 2 diabetes mellitus without complications (5) CKD (chronic kidney disease) stage 3, GFR 30-59 ml/min SNOMED Code(s): 475377949 Code(s): N18.3 - CHRONIC KIDNEY DISEASE, STAGE 3 (MODERATE) Status: Chronic Current Visit: No (6) Cardiomyopathy SNOMED Code(s): 97860177 Code(s): I42.9 - CARDIOMYOPATHY, UNSPECIFIED Status: Chronic Priority: Medium Current Visit: No Qualifiers: Cardiomyopathy type: unspecified Qualified Code(s): I42.9 - Cardiomyopathy , unspecified (7) Hypomagnesemia SNOMED Code(s): 286540004 Code(s): E83.42 - HYPOMAGNESEMIA Status: Acute Priority: Medium Current Visit: Yes (8) Urge incontinence SNOMED Code(s): 70683983 Code(s): N39.41 - URGE INCONTINENCE Status: Acute Priority: Medium Current Visit: Yes - Problem List Review Problem List Initiated/Reviewed/Updated: Yes - My Orders Last 24 Hours: My Active Orders 06/25/17 11:19 CULTURE BLOOD [BC] Stat Blood Culture x2 Reflex Set [OM.PC] Stat 06/25/17 11:20 CULTURE URINE [RM] Routine 06/25/17 11:21 CULTURE BLOOD [BC] Stat 06/25/17 11:23 UA W/MICROSCOPIC [URIN] Routine - Plan Plan:: Assessment/Plan: Acute: Exacerbation of CHF, Continues to improve -Respiratory distress in ED -Per ED note was recently decreased from 80 mg lasix BID to 40mg in AM and 20mg in PM -Hypertensive on floor arrival--> stable now -BNP 5457-->6149-->5457-->3535-->2825-->4508--> now 2702 -CRP 1.7-->1.6-->1.1-->0.8-->3.3--> 6.7 -Lasix drip- Discontinued for 18hrs --> restarted 06/21/17--> started oral lasix 40 mg BID 06/23/17 -Damon catheter for monitoring I&O--> D/C'd 06/22/17 -Will hold off 2 gram sodium diet as sodium is low -Will hold off fluid restriction for now as she appears somewhat dehydrated -Heart failure education -Titrate O2 as needed -Echo obtained 06/18/17 -LVEF 30-35% -Moderately decreased left ventricular systolic function -Mild concentric left ventricular hypertrophy -Restrictive (Grade 3) pattern of diastolic filling -Global mild hypokinesis. Septal movement is paradoxical and may be due to RV pacing of RV overload -Moderate Aortic valve stenosis -Mild aortic valve regurgitation -Inferior vena cava is normal sized with respiratory size variation greater than 50% -No significant change from 11/16/15 -Moderate biatrial dilation -Respiratory viral panel, Influenza, Blood cultures, urine cultures, mycoplasma pneumonia - all negative -Repeat CXR on 06/20/17, 06/27/17--> No changes, Lungs are clear, Cardiomegaly, minimal pulmonary vascular prominence per Dr. House -Recommend going to the fitness trainer for f/u stan for poor LVEF and pacemaker issues--> appointment changed from July to July 16 via -Digoxin levels elevated 06/20/17 at 2.3--> Digoxin held --> due to 1.5 --> Restarted Digoxin 125 on 06/23/17 Urinary Incontinence (urge and stress) -Lasix held for 18 hours, no improvement --> continue Lasix gtt-->now on oral diuretic regimen 06/23/17 -Bladder training. -Oxybutynin previously increased from 5mg-->10mg without relief, D/C'd -Sanctura 20mg q Daily started 06/22/17 (renal/geriatric dose) -Watch potassium levels--> 4.6-->4.4-->3.6-->4 -D/C potassium supplement -Will refer to Bladder Specialist, Joslyn Ramsey NP from [facility] who comes to [facility] monthly for f/u. -Bladder function test -We recommend a referral to Urologist if needed A Fib on Coumadin; HR controlled -INR 2.26-->2.06 -Pharmacy to dose warfarin -Daily INR Leukocytosis - WBC 17.58-->17.28 - CRP 6.7 - Respiratory Panel, Screening Influenza, Blood Cultures and UA - all negative - No respiratory issues and afebrile - Received Levaquin 750 mg po yesterday-->D/C Levaquin today (06/25/17) - Repeated infectious work up as labs have not improved today (06/25/17) Resolved: Hyponatremia -Likely 2/2 Metolazone -Sodium 130 in ED-->125-->130-->134--> 136 -Baseline from all prior visits appears to be 129-131 -Good oral intake reported by nursing -Monitor AM labs Hypomagnesium -1.1-->2.5-->1.9-->1.6-->2.5-->1.7-->2.1 -Mg given 06/20/17, 06/22/17 Renal insufficiency -Baseline appears to be eGFR very low to upper 40's -BUN 29-->31-->39-->54-->40-->39 -Creatinine 1.1-->1.3-->1.8-->1.9-->1.2-->1.3 -eGFR 47-->39-->26-->25-->42-->39 back to baseline stage III -Was on lasix drip. Held for 18 hours due to kidney function and now back to oral dosing (06/23/17) -Monitor need for IV fluids - balance with worsening CHF Chronic: Impaired vision Angina Hx/o Blood clots/VTE/PE on Coumadin CHF Heart Murmur HLD HTN Hx/o [place] Pacemaker GERD Arthritis Osteoporosis Hx/o CVA Type II DM Hx/o Appendecomty Hx/o Cholecystectomy Plan: She remains clinically stable Continue current treatment SW/ for discharge planning Continue PT/OT Routine AM labs GI prophylaxis: Pepcid DVT/PE prophylaxis: On warfarin Other orders as indicated above Code status: DNR/DNI; PCP: Dr. Chino at [facility] D/C tomorrow to [facility], pending lab results. LOS > 96hrs due to slow response to treatment
[2017-06-25] MEDS: Digoxin 125 MCG Tab PO SCH (11:44)
[2017-06-25] MEDS: Magnesium Hydroxide 400 MG/5 ML Susp 30 ML Cup PO PRN (16:31)
[2017-06-25] MEDS ORDERED: Warfarin 2 MG Tab PO ONE (18:00)
[2017-06-25] MEDS: Docusate Sodium 100 MG Cap PO SCH (21:16)
[2017-06-25] MEDS: Simvastatin 10 MG Tab PO SCH (21:17)
[2017-06-25] MEDS ORDERED: Levofloxacin 750 MG Tab PO SCH (23:00)
[2017-06-26] MEDS: Pantoprazole 40 MG Tab.CR PO SCH (06:29)
[2017-06-26] MEDS: Levothyroxine 25 MCG Tab PO SCH (06:29)
[2017-06-26] MEDS: Trospium 20 MG Tab PO SCH (06:29)
[2017-06-26] MEDS: Furosemide 40 MG Tab PO SCH ×2 (06:29→14:54)
[2017-06-26] MEDS: Insulin Aspart 100 Units/ML 3 ML Pen SUBCUT SCH ×3 (07:30→17:01)
[2017-06-26] MEDS: Gabapentin 300 MG Cap PO SCH ×3 (09:21→21:01)
[2017-06-26] MEDS: Aspirin 81 MG Tab.EC PO SCH (09:21)
[2017-06-26] MEDS: Saccharomyces Boulardii (Probiotic) 250 MG Cap PO SCH (09:21)
[2017-06-26] MEDS: Ferrous Sulfate 325 MG Tab PO SCH (09:21)
[2017-06-26] MEDS: Spironolactone 25 MG Tab PO SCH (09:21)
[2017-06-26] MEDS: Metoprolol Tartrate 100 MG Tab PO SCH ×2 (09:23→20:59)
--- NOTE | 2017-06-26 11:11 | CR ---
Chest: Portable view of the chest was obtained. Comparison: Prior chest x-ray of 06/24/17. Heart is enlarged. Pacemaker noted. Lungs show a questionable nodule within the right midlung. Lungs otherwise are clear. Bony structures are unremarkable. Impression: 1. Questionable nodule within the right mid chest. This is not seen on previous exams and most likely is artifact from costochondral calcification. 2. Cardiomegaly and pacemaker. 3. Nothing acute is otherwise seen. Diagnostic code #2
--- NOTE | 2017-06-26 11:40 | PCM.PN ---
- General Info Date of Service: 06/26/17 Admission Dx/Problem (Free Text): Hyponatremia Subjective Update: In to see Jenna. She is sitting in a chair. Overall she is feeling well, just somewhat tired. Good appetite. She still feels like she has to go the restroom frequently, but since taking this new medication has noticed an improvement- Damon was removed (06/22), day 4--06/26/17. Continue bladder training and new urinary incontinence medication. Her WBC count has gone down slightly today but is still elevated, along with an elevated CRP- ordered blood cultures yesterday and would like to see results before d/c to r/o possible pacemaker infection. U/ A was negative for UTI and there doesn't seem to be any other source for the elevated labs. Will likely discharge tomorrow, pending blood culture results. No other concerns. Nursing has no concerns. Functional Status: Reports: Pain Controlled, Tolerating Diet, Ambulating, Urinating - Review of Systems General: Reports: Weakness (baseline). Denies: Fever, Chills HEENT: Reports: No Symptoms Pulmonary: Reports: No Symptoms Cardiovascular: Reports: No Symptoms. Denies: Chest Pain Gastrointestinal: Reports: No Symptoms. Denies: Abdominal Pain, Constipation, Decreased Appetite, Diarrhea, Nausea, Vomiting Genitourinary: Reports: No Symptoms, Urgency (improving). Denies: Dysuria, Burning, Pain Musculoskeletal: Reports: No Symptoms Skin: Reports: No Symptoms Neurological: Reports: No Symptoms Psychiatric: Reports: No Symptoms - Patient Data Vitals - Most Recent: Last Vital Signs Temp 97.9 F 06/26/17 09:16 Pulse 70 06/26/17 09:16 Resp 16 06/26/17 09:16 BP 105/47 L 06/26/17 09:16 Pulse Ox 96 06/26/17 09:16 Weight - Most Recent: 142 lb 9.6 oz I&O - Last 24 Hours: Intake & Output 06/25/17 06/26/17 06/26/17 22:59 06:59 14:59 Intake Total 1040 200 240 Output Total 750 900 Balance 290 -700 240 Lab Results Last 24 Hours: Laboratory Results - last 24 hr 06/25/17 06/25/17 06/25/17 Range/Units 11:47 12:50 16:10 WBC (3.98-10.04) K/mm3 RBC (3.98-5.22) M/mm3 Hgb (11.2-15.7) gm/L Hct (34.1-44.9) % MCV (79.4-94.8) fl MCH (25.6-32.2) pg MCHC (32.2-35.5) g/dl RDW Std Deviation (36.4-46.3) fL Plt Count (182-369) K/mm3 MPV (9.4-12.3) fl Neut % (Auto) (34.0-71.1) % Lymph % (Auto) (19.3-51.7) % [place] % (Auto) (4.7-12.5) % Eos % (Auto) (0.7-5.8) Baso % (Auto) (0.1-1.2) % Neut # (Auto) (1.56-6.13) K/mm3 Lymph # (Auto) (1.18-3.74) K/mm3 [place] # (Auto) (0.24-0.36) K/mm3 Eos # (Auto) (0.04-0.36) K/mm3 Baso # (Auto) (0.01-0.08) K/mm3 Manual Slide Review PT (8.0-13.0) SECONDS INR Sodium (136-145) mEq/L Potassium (3.5-5.1) mEq/L Chloride (98-107) mEq/L Carbon Dioxide (21-32) mEq/L Anion Gap (5-15) BUN (7-18) mg/dL Creatinine (0.55-1.02) mg/dL Est Cr Clr Drug Dosing mL/min Estimated GFR (MDRD) (>60) mL/min BUN/Creatinine Ratio (14-18) Glucose (83-115) mg/dL POC Glucose 180 H (83-110) mg/dL Calcium (8.5-10.1) mg/dL C-Reactive Protein (<1.0) mg/dL Urine Color Light yellow (Yellow) Urine Appearance Clear (Clear) Urine pH 6.5 (5.0-8.0) Ur Specific [place] 1.015 (1.005-1.030) Urine Protein Negative (Negative) Urine Glucose (UA) Negative (Negative) Urine Ketones Negative (Negative) Urine Occult Blood Negative (Negative) Urine Nitrite Negative (Negative) Urine Bilirubin Negative (Negative) Urine Urobilinogen 0.2 (0.2-1.0) Ur Leukocyte Esterase Negative (Negative) Urine RBC Not seen (0-5) /hpf Urine WBC 0-5 (0-5) /hpf Ur Epithelial Cells 10-20 H (0-5) /hpf Urine Bacteria Not seen (FEW) /hpf Urine Mucus Not seen (FEW) /hpf Digoxin 2.0 (0.9-2.0) ng/mL 06/25/17 06/25/17 06/26/17 Range/Units 17:17 21:13 06:18 WBC (3.98-10.04) K/mm3 RBC (3.98-5.22) M/mm3 Hgb (11.2-15.7) gm/L Hct (34.1-44.9) % MCV (79.4-94.8) fl MCH (25.6-32.2) pg MCHC (32.2-35.5) g/dl RDW Std Deviation (36.4-46.3) fL Plt Count (182-369) K/mm3 MPV (9.4-12.3) fl Neut % (Auto) (34.0-71.1) % Lymph % (Auto) (19.3-51.7) % [place] % (Auto) (4.7-12.5) % Eos % (Auto) (0.7-5.8) Baso % (Auto) (0.1-1.2) % Neut # (Auto) (1.56-6.13) K/mm3 Lymph # (Auto) (1.18-3.74) K/mm3 [place] # (Auto) (0.24-0.36) K/mm3 Eos # (Auto) (0.04-0.36) K/mm3 Baso # (Auto) (0.01-0.08) K/mm3 Manual Slide Review PT 18.4 H (8.0-13.0) SECONDS INR 1.71 Sodium (136-145) mEq/L Potassium (3.5-5.1) mEq/L Chloride (98-107) mEq/L Carbon Dioxide (21-32) mEq/L Anion Gap (5-15) BUN (7-18) mg/dL Creatinine (0.55-1.02) mg/dL Est Cr Clr Drug Dosing mL/min Estimated GFR (MDRD) (>60) mL/min BUN/Creatinine Ratio (14-18) Glucose (83-115) mg/dL POC Glucose 143 H 261 H (83-110) mg/dL Calcium (8.5-10.1) mg/dL C-Reactive Protein (<1.0) mg/dL Urine Color (Yellow) Urine Appearance (Clear) Urine pH (5.0-8.0) Ur Specific [place] (1.005-1.030) Urine Protein (Negative) Urine Glucose (UA) (Negative) Urine Ketones (Negative) Urine Occult Blood (Negative) Urine Nitrite (Negative) Urine Bilirubin (Negative) Urine Urobilinogen (0.2-1.0) Ur Leukocyte Esterase (Negative) Urine RBC (0-5) /hpf Urine WBC (0-5) /hpf Ur Epithelial Cells (0-5) /hpf Urine Bacteria (FEW) /hpf Urine Mucus (FEW) /hpf Digoxin (0.9-2.0) ng/mL 06/26/17 06/26/17 06/26/17 Range/Units 06:18 06:18 06:28 WBC 15.88 H (3.98-10.04) K/mm3 RBC 3.94 L (3.98-5.22) M/mm3 Hgb 11.5 (11.2-15.7) gm/L Hct 35.5 (34.1-44.9) % MCV 90.1 (79.4-94.8) fl MCH 29.2 (25.6-32.2) pg MCHC 32.4 (32.2-35.5) g/dl RDW Std Deviation 46.3 (36.4-46.3) fL Plt Count 368 (182-369) K/mm3 MPV 9.9 (9.4-12.3) fl Neut % (Auto) 54.2 (34.0-71.1) % Lymph % (Auto) 34.6 (19.3-51.7) % [place] % (Auto) 6.2 (4.7-12.5) % Eos % (Auto) 4.5 (0.7-5.8) Baso % (Auto) 0.1 (0.1-1.2) % Neut # (Auto) 8.61 H (1.56-6.13) K/mm3 Lymph # (Auto) 5.49 H (1.18-3.74) K/mm3 [place] # (Auto) 0.99 H (0.24-0.36) K/mm3 Eos # (Auto) 0.71 H (0.04-0.36) K/mm3 Baso # (Auto) 0.02 (0.01-0.08) K/mm3 Manual Slide Review Abnormal smear PT (8.0-13.0) SECONDS INR Sodium 136 (136-145) mEq/L Potassium 4.2 (3.5-5.1) mEq/L Chloride 96 L (98-107) mEq/L Carbon Dioxide 34 H (21-32) mEq/L Anion Gap 10.2 (5-15) BUN 63 H (7-18) mg/dL Creatinine 1.5 H (0.55-1.02) mg/dL Est Cr Clr Drug Dosing 19.19 mL/min Estimated GFR (MDRD) 33 (>60) mL/min BUN/Creatinine Ratio 42.0 H (14-18) Glucose 122 H (83-115) mg/dL POC Glucose 141 H (83-110) mg/dL Calcium 9.3 (8.5-10.1) mg/dL C-Reactive Protein 7.3 H* (<1.0) mg/dL Urine Color (Yellow) Urine Appearance (Clear) Urine pH (5.0-8.0) Ur Specific [place] (1.005-1.030) Urine Protein (Negative) Urine Glucose (UA) (Negative) Urine Ketones (Negative) Urine Occult Blood (Negative) Urine Nitrite (Negative) Urine Bilirubin (Negative) Urine Urobilinogen (0.2-1.0) Ur Leukocyte Esterase (Negative) Urine RBC (0-5) /hpf Urine WBC (0-5) /hpf Ur Epithelial Cells (0-5) /hpf Urine Bacteria (FEW) /hpf Urine Mucus (FEW) /hpf Digoxin (0.9-2.0) ng/mL 06/26/17 Range/Units 11:06 WBC (3.98-10.04) K/mm3 RBC (3.98-5.22) M/mm3 Hgb (11.2-15.7) gm/L Hct (34.1-44.9) % MCV (79.4-94.8) fl MCH (25.6-32.2) pg MCHC (32.2-35.5) g/dl RDW Std Deviation (36.4-46.3) fL Plt Count (182-369) K/mm3 MPV (9.4-12.3) fl Neut % (Auto) (34.0-71.1) % Lymph % (Auto) (19.3-51.7) % [place] % (Auto) (4.7-12.5) % Eos % (Auto) (0.7-5.8) Baso % (Auto) (0.1-1.2) % Neut # (Auto) (1.56-6.13) K/mm3 Lymph # (Auto) (1.18-3.74) K/mm3 [place] # (Auto) (0.24-0.36) K/mm3 Eos # (Auto) (0.04-0.36) K/mm3 Baso # (Auto) (0.01-0.08) K/mm3 Manual Slide Review PT (8.0-13.0) SECONDS INR Sodium (136-145) mEq/L Potassium (3.5-5.1) mEq/L Chloride (98-107) mEq/L Carbon Dioxide (21-32) mEq/L Anion Gap (5-15) BUN (7-18) mg/dL Creatinine (0.55-1.02) mg/dL Est Cr Clr Drug Dosing mL/min Estimated GFR (MDRD) (>60) mL/min BUN/Creatinine Ratio (14-18) Glucose (83-115) mg/dL POC Glucose 223 H (83-110) mg/dL Calcium (8.5-10.1) mg/dL C-Reactive Protein (<1.0) mg/dL Urine Color (Yellow) Urine Appearance (Clear) Urine pH (5.0-8.0) Ur Specific [place] (1.005-1.030) Urine Protein (Negative) Urine Glucose (UA) (Negative) Urine Ketones (Negative) Urine Occult Blood (Negative) Urine Nitrite (Negative) Urine Bilirubin (Negative) Urine Urobilinogen (0.2-1.0) Ur Leukocyte Esterase (Negative) Urine RBC (0-5) /hpf Urine WBC (0-5) /hpf Ur Epithelial Cells (0-5) /hpf Urine Bacteria (FEW) /hpf Urine Mucus (FEW) /hpf Digoxin (0.9-2.0) ng/mL Jason Results Last 24 Hours: Microbiology 06/24/17 11:27 Urine Culture - Final Urine, Clean Catch 06/24/17 13:05 Aerobic Blood Culture - Preliminary Blood - Venous NO GROWTH AFTER 1 DAY Anaerobic Blood Culture - Preliminary NO GROWTH AFTER 1 DAY 06/24/17 13:15 Aerobic Blood Culture - Preliminary Blood - Venous - Lab Draw NO GROWTH AFTER 1 DAY Anaerobic Blood Culture - Preliminary NO GROWTH AFTER 1 DAY Med Orders - Current: Current Medications Acetaminophen (Tylenol) 650 mg PO Q6H PRN PRN Reason: Pain/Fever Last Admin: 06/18/17 06:46 Dose: 650 mg Aspirin (Halfprin) 81 mg PO DAILY [facility] Last Admin: 06/26/17 09:21 Dose: 81 mg Bisacodyl (Dulcolax) 10 mg RECTAL DAILY PRN PRN Reason: Constipation Last Admin: 06/21/17 06:15 Dose: 10 mg Dextrose/Water (Dextrose 50% In Water) 50 ml IVPUSH ASDIRECTED PRN PRN Reason: Hypoglycemia Digoxin (Lanoxin) 125 mcg PO DAILY@1200 [facility] Last Admin: 06/25/17 11:44 Dose: 125 mcg Docusate Sodium (Colace) 100 mg PO BEDTIME [facility] Last Admin: 06/25/17 21:16 Dose: 100 mg Ferrous Sulfate (Ferrous Sulfate) 325 mg PO DAILY [facility] Last Admin: 06/26/17 09:21 Dose: 325 mg Furosemide (Lasix) 40 mg PO BIDDIURETIC [facility] Last Admin: 06/26/17 06:29 Dose: 40 mg Gabapentin (Neurontin) 300 mg PO TID [facility] Last Admin: 06/26/17 09:21 Dose: 300 mg Hydralazine HCl (Apresoline) 20 mg IVPUSH Q6H PRN PRN Reason: Hypertension Insulin Aspart (Novolog) 0 unit SUBCUT QIDACANDBED [facility]; Protocol Last Admin: 06/26/17 07:30 Dose: Not Given Levothyroxine Sodium (Levothyroxine) 25 mcg PO ACBREAKFAST [facility] Last Admin: 04/03/18 06:29 Dose: 25 mcg Magnesium Hydroxide (Milk Of Magnesia) 30 ml PO DAILY PRN PRN Reason: Constipation Last Admin: 06/25/17 16:31 Dose: 30 ml Metoprolol Tartrate (Lopressor) 100 mg PO BID [facility] Last Admin: 06/26/17 09:23 Dose: Not Given Pantoprazole Sodium (Protonix) 40 mg PO DAILY@0700 [facility] Last Admin: 06/26/17 06:29 Dose: 40 mg Saccharomyces Boulardii (Florastor) 250 mg PO DAILY [facility] Last Admin: 06/26/17 09:21 Dose: 250 mg Simvastatin (Zocor) 10 mg PO BEDTIME [facility] Last Admin: 06/25/17 21:17 Dose: 10 mg Spironolactone (Aldactone) 12.5 mg PO DAILY [facility] Last Admin: 06/26/17 09:21 Dose: 12.5 mg Temazepam (Restoril) 7.5 mg PO BEDTIME PRN PRN Reason: Insomnia Last Admin: 06/22/17 02:22 Dose: 7.5 mg Trospium (Sanctura) 20 mg PO ACBREAKFAST [facility] Last Admin: 06/26/17 06:29 Dose: 20 mg Warfarin Sodium (Pharmacy To Dose - Warfarin) 1 dose .XX ASDIRECTED [facility] Discontinued Medications Acetaminophen (Tylenol) 650 mg PO NOW ONE Stop: 06/22/17 13:38 Last Admin: 06/22/17 14:28 Dose: 650 mg Al Hydroxide/Mg Hydroxide (Mag-Al Plus) 15 ml PO ONETIME ONE Stop: 06/18/17 15:51 Last Admin: 06/18/17 15:51 Dose: 15 ml Digoxin (Lanoxin) 125 mcg PO DAILY [facility] Last Admin: 06/21/17 08:58 Dose: 125 mcg Enoxaparin Sodium (Lovenox) 40 mg SUBCUT Q24H [facility] Last Admin: 06/17/17 22:30 Dose: 40 mg Enoxaparin Sodium (Lovenox) 30 mg SUBCUT Q24H [facility] Enoxaparin Sodium (Lovenox) 30 mg SUBCUT Q24H [facility] Last Admin: 06/19/17 21:01 Dose: 30 mg Furosemide (Lasix) 40 mg IVPUSH NOW ONE Stop: 06/17/17 19:03 Last Admin: 06/17/17 19:20 Dose: 40 mg Sodium Chloride (Normal Saline) 1,000 mls @ 150 mls/hr IV ASDIRECTED [facility] Last Admin: 06/17/17 18:08 Dose: 150 mls/hr Magnesium Sulfate 4 gm/ Premix 100 mls @ 50 mls/hr IV ONETIME ONE Stop: 06/17/17 21:47 Last Admin: 06/17/17 20:03 Dose: Not Given Magnesium Sulfate 2 gm/ Premix 50 mls @ 25 mls/hr IV ONETIME ONE Stop: 06/17/17 22:01 Last Admin: 06/17/17 20:11 Dose: 25 mls/hr Magnesium Sulfate 2 gm/ Premix 50 mls @ 25 mls/hr IV ONETIME ONE Stop: 06/17/17 22:02 Last Admin: 06/17/17 22:29 Dose: 25 mls/hr Levofloxacin/Dextrose 750 mg/ (Premix) 150 mls @ 100 mls/hr IV Q48H [facility] Last Admin: 06/19/17 21:04 Dose: 100 mls/hr Furosemide 100 mg/ Sodium (Chloride) 100 mls @ 4 mls/hr IV TITRATE [facility]; Protocol Last Admin: 06/18/17 20:49 Dose: 4 mls/hr Magnesium Sulfate 2 gm/ Premix 50 mls @ 25 mls/hr IV ONETIME ONE Stop: 06/20/17 18:44 Last Admin: 06/20/17 17:03 Dose: 25 mls/hr Furosemide 100 mg/ Sodium (Chloride) 100 mls @ 4 mls/hr IV TITRATE [facility] Stop: 06/23/17 10:00 Last Admin: 06/22/17 11:38 Dose: 4 mg/hr, 4 mls/hr Magnesium Sulfate 2 gm/ Premix 50 mls @ 25 mls/hr IV ONETIME ONE Stop: 06/23/17 22:01 Last Admin: 06/23/17 21:59 Dose: 25 mls/hr Levofloxacin (Levaquin) 750 mg PO Q48H [facility] Stop: 06/23/17 21:01 Last Admin: 06/23/17 23:00 Dose: Not Given Levofloxacin (Levaquin) 750 mg PO ONETIME ONE Stop: 06/23/17 23:01 Last Admin: 06/23/17 23:00 Dose: 750 mg Levofloxacin (Levaquin) 750 mg PO Q48H [facility] Magnesium Hydroxide (Milk Of Magnesia) 30 ml PO ONETIME PRN PRN Reason: Constipation Magnesium Oxide (Magnesium Oxide) 800 mg PO ONETIME ONE Stop: 06/22/17 14:16 Last Admin: 06/22/17 14:28 Dose: 800 mg Metolazone (Zaroxolyn) 2.5 mg PO TuThSa@0900 [facility] Last Admin: 06/19/17 09:25 Dose: 2.5 mg Non-Formulary Medication (Sitagliptin) 50 mg PO DAILY [facility] Last Admin: 06/19/17 19:34 Dose: Not Given Ondansetron HCl (Zofran) 4 mg IVPUSH ONETIME ONE Stop: 06/17/17 17:58 Last Admin: 06/17/17 18:08 Dose: 4 mg Oral Electrolytes (Thermotabs) 2 each PO BID@1130,1400 [facility] Stop: 06/20/17 14:01 Last Admin: 06/20/17 14:17 Dose: 2 each Oxybutynin Chloride (Oxybutynin Er) 10 mg PO DAILY [facility] Last Admin: 06/21/17 08:59 Dose: 10 mg Potassium Chloride (Klor-Con M20) 20 meq PO DAILY [facility] Last Admin: 06/21/17 08:58 Dose: 20 meq Warfarin Sodium (Coumadin) 2 mg PO MoWeFr@1800 [facility] Last Admin: 06/18/17 18:12 Dose: 2 mg Warfarin Sodium (Coumadin) 4 mg PO SuTuThSa@1800 [facility] Warfarin Sodium (Coumadin) 5 mg PO ONETIME ONE Stop: 06/19/17 18:01 Last Admin: 06/19/17 17:18 Dose: 5 mg Warfarin Sodium (Coumadin) 2 mg PO ONETIME ONE Stop: 06/20/17 18:01 Last Admin: 06/20/17 17:03 Dose: 2 mg Warfarin Sodium (Coumadin) 4 mg PO ONETIME ONE Stop: 06/21/17 18:01 Last Admin: 06/21/17 18:04 Dose: 4 mg Warfarin Sodium (Coumadin) 2 mg PO ONETIME ONE Stop: 06/22/17 18:01 Last Admin: 06/22/17 17:46 Dose: Not Given Warfarin Sodium (Coumadin) 2 mg PO ONETIME ONE Stop: 06/23/17 18:01 Last Admin: 06/23/17 17:44 Dose: 2 mg Warfarin Sodium (Coumadin) 4 mg PO ONETIME ONE Stop: 06/24/17 18:01 Warfarin Sodium (Coumadin) 2 mg PO ONETIME ONE Stop: 06/25/17 18:01 Last Admin: 06/25/17 18:30 Dose: 2 mg - Exam Quality Assessment: DVT Prophylaxis. No: Supplemental Oxygen, Urine Catheter General: Alert, Oriented, Cooperative HEENT: Pupils Equal, Pupils Reactive, EOMI, Mucous Membr. Moist/[place] Neck: Supple Lungs: Clear to Auscultation, Normal Respiratory Effort, Decreased Breath Sounds Cardiovascular: Regular Rate, Regular Rhythm, Murmurs (systolic) GI/Abdominal Exam: Normal Bowel Sounds, Soft, Non-Tender, No Organomegaly, No Distention (Female) Exam: Deferred Back Exam: Normal Inspection, Full Range of Motion Extremities: Normal Inspection, Normal Range of Motion, Non-Tender, No Pedal Edema, Normal Capillary Refill Peripheral Pulses: 1+: Posterior Tibial (L), Posterior Tibial (R), Dorsalis Pedis (L), Dorsalis Pedis (R) Skin: Warm, Dry, Intact Neurological: No New Focal Deficit Psy/Mental Status: Alert, Normal Affect, Normal Mood - Problem List & Annotations (1) Acute exacerbation of congestive heart failure SNOMED Code(s): 82497834 Code(s): I50.9 - HEART FAILURE, UNSPECIFIED Status: Acute Priority: High Current Visit: Yes Qualifiers: Heart failure type: diastolic Qualified Code(s): I50.33 - Acute on chronic diastolic (congestive) heart failure (2) Hyponatremia with decreased serum osmolality SNOMED Code(s): 472579769 Code(s): E87.1 - HYPO-OSMOLALITY AND HYPONATREMIA Status: Acute Priority : High Current Visit: Yes (3) Chronic atrial fibrillation SNOMED Code(s): 013366571 Code(s): I48.2 - CHRONIC ATRIAL FIBRILLATION Status: Chronic Priority: Medium Current Visit: Yes (4) Diabetes mellitus SNOMED Code(s): 81828943 Code(s): E11.9 - TYPE 2 DIABETES MELLITUS WITHOUT COMPLICATIONS Status: Chronic Priority: Medium Current Visit: Yes Qualifiers: Diabetes mellitus type: type 2 Diabetes mellitus snf insulin use: unspecified galvanizer insulin use status Diabetes mellitus complication status : without complication Qualified Code(s): E11.9 - Type 2 diabetes mellitus without complications (5) CKD (chronic kidney disease) stage 3, GFR 30-59 ml/min SNOMED Code(s): 357394814 Code(s): N18.3 - CHRONIC KIDNEY DISEASE, STAGE 3 (MODERATE) Status: Chronic Current Visit: No (6) Cardiomyopathy SNOMED Code(s): 32263577 Code(s): I42.9 - CARDIOMYOPATHY, UNSPECIFIED Status: Chronic Priority: Medium Current Visit: No Qualifiers: Cardiomyopathy type: unspecified Qualified Code(s): I42.9 - Cardiomyopathy , unspecified (7) Hypomagnesemia SNOMED Code(s): 504569771 Code(s): E83.42 - HYPOMAGNESEMIA Status: Acute Priority: Medium Current Visit: Yes (8) Urge incontinence SNOMED Code(s): 75288579 Code(s): N39.41 - URGE INCONTINENCE Status: Acute Priority: Medium Current Visit: Yes - Problem List Review Problem List Initiated/Reviewed/Updated: Yes - My Orders Last 24 Hours: My Active Orders 06/25/17 11:19 Blood Culture x2 Reflex Set [OM.PC] Stat 06/25/17 12:07 CULTURE BLOOD [BC] Stat 06/25/17 12:50 CULTURE BLOOD [BC] Stat 06/25/17 16:10 CULTURE URINE [RM] Routine UA W/MICROSCOPIC [URIN] Routine 06/26/17 10:30 ESR [SEDIMENTATION RATE AUTO] [HEME] Routine - Plan Plan:: Assessment/Plan: Acute: Exacerbation of CHF, Continues to improve -Respiratory distress in ED -Per ED note was recently decreased from 80 mg lasix BID to 40mg in AM and 20mg in PM -Hypertensive on floor arrival--> stable now -BNP 5457-->6149-->5457-->3535-->2825-->4508-->2702 -CRP 1.7-->1.6-->1.1-->0.8-->3.3--> 6.7-->7.3 -Lasix drip- Discontinued for 18hrs --> restarted 06/21/17--> started oral lasix 40 mg BID 06/23/17 -Damon catheter for monitoring I&O--> D/C'd 06/22/17 -Will hold off 2 gram sodium diet as sodium is low -Will hold off fluid restriction for now as she appears somewhat dehydrated -Heart failure education -Titrate O2 as needed -Echo obtained 06/18/17 -LVEF 30-35% -Moderately decreased left ventricular systolic function -Mild concentric left ventricular hypertrophy -Restrictive (Grade 3) pattern of diastolic filling -Global mild hypokinesis. Septal movement is paradoxical and may be due to RV pacing of RV overload -Moderate Aortic valve stenosis -Mild aortic valve regurgitation -Inferior vena cava is normal sized with respiratory size variation greater than 50% -No significant change from 11/16/15 -Moderate biatrial dilation -Respiratory viral panel, Influenza, Blood cultures, urine cultures, mycoplasma pneumonia - all negative -Repeat CXR on 06/20/17, 06/27/17--> No changes, Lungs are clear, Cardiomegaly, minimal pulmonary vascular prominence per Dr. House -Recommend going to the office machines teacher for f/u stan for poor LVEF and pacemaker issues--> appointment changed from July to July 16 via -Digoxin levels elevated 06/20/17 at 2.3--> Digoxin held --> due to 1.5 --> Restarted Digoxin 125 on 06/23/17 Urinary Incontinence (urge and stress), Improving -Lasix held for 18 hours, no improvement --> continue Lasix gtt-->now on oral diuretic regimen 06/23/17 -Bladder training. -Oxybutynin previously increased from 5mg-->10mg without relief, D/C'd -Sanctura 20mg q Daily started 06/22/17 (renal/geriatric dose) -Watch potassium levels--> 4.6-->4.4-->3.6-->4--4.2 -D/C potassium supplement -Will refer to Bladder Specialist, Joslyn Ramsey NP from [facility] who comes to [facility] monthly for f/u. -Bladder function test -We recommend a referral to Urologist A Fib on Coumadin; HR controlled -INR 2.26-->2.06 -->1.71 -Pharmacy to dose warfarin -Daily INR Leukocytosis - WBC 17.58-->17.28-->15.88 - CRP 6.7-->7.3 - Respiratory Panel, Screening Influenza, Blood Cultures and UA - all negative - No respiratory issues and afebrile - Received Levaquin 750 mg po yesterday-->D/C Levaquin today (06/25/17) - Repeated infectious work up--> U/A, blood cultures (day 1)- all negative - Will wait until Blood cultures come back tomorrow 06/27/17 (day 2) to D/C--> r/o possible pacemaker infection Resolved: Hyponatremia -Likely 04/27 Metolazone -Sodium 130 in ED-->125-->130-->134--> 136 -Baseline from all prior visits appears to be 129-131 -Good oral intake reported by nursing -Monitor AM labs Hypomagnesium -1.1-->2.5-->1.9-->1.6-->2.5-->1.7-->2.1 -Mg given 06/20/17, 06/22/17 Renal insufficiency -Baseline appears to be eGFR very low to upper 40's -BUN 29-->31-->39-->54-->40-->39-->63 -Creatinine 1.1-->1.3-->1.8-->1.9-->1.2-->1.3-->1.5 -eGFR 47-->39-->26-->25-->42-->39-->33 back to baseline stage III -Was on lasix drip. Held for 18 hours due to kidney function and now back to oral dosing (06/23/17) -Monitor need for IV fluids - balance with worsening CHF Chronic: Impaired vision Angina Hx/o Blood clots/VTE/PE on Coumadin CHF Heart Murmur HLD HTN Hx/o IN Pacemaker GERD Arthritis Osteoporosis Hx/o CVA Type II DM Hx/o Appendecomty Hx/o Cholecystectomy Plan: She remains clinically stable Continue current treatment SW/CM for discharge planning Continue PT/OT Routine AM labs GI prophylaxis: Pepcid DVT/PE prophylaxis: On warfarin Other orders as indicated above Code status: DNR/DNI; PCP: Dr. Chino at [facility] D/C tomorrow to [facility] pending lab results. LOS > 96hrs due to slow response to treatment
[2017-06-26] MEDS: Digoxin 125 MCG Tab PO SCH (11:48)
[2017-06-26] MEDS ORDERED: Warfarin 4 MG Tab PO ONE (18:00)
[2017-06-26] MEDS: Docusate Sodium 100 MG Cap PO SCH (20:59)
[2017-06-26] MEDS: Acetaminophen 325 MG Tab PO PRN (21:01)
[2017-06-26] MEDS: Simvastatin 10 MG Tab PO SCH (21:01)
[2017-06-27] MEDS: Insulin Aspart 100 Units/ML 3 ML Pen SUBCUT SCH ×3 (01:00→11:13)
[2017-06-27] MEDS: Trospium 20 MG Tab PO SCH (06:28)
[2017-06-27] MEDS: Levothyroxine 25 MCG Tab PO SCH (06:29)
[2017-06-27] MEDS: Pantoprazole 40 MG Tab.CR PO SCH (06:29)
[2017-06-27] MEDS: Furosemide 40 MG Tab PO SCH (06:29)
[2017-06-27] MEDS: Spironolactone 25 MG Tab PO SCH (08:40)
[2017-06-27] MEDS: Acetaminophen 325 MG Tab PO PRN (08:41)
[2017-06-27] MEDS: Ferrous Sulfate 325 MG Tab PO SCH (08:41)
[2017-06-27] MEDS: Saccharomyces Boulardii (Probiotic) 250 MG Cap PO SCH (08:41)
[2017-06-27] MEDS: Metoprolol Tartrate 100 MG Tab PO SCH (08:43)
[2017-06-27] MEDS: Gabapentin 300 MG Cap PO SCH (08:43)
[2017-06-27] MEDS: Aspirin 81 MG Tab.EC PO SCH (08:44)
[2017-06-27 08:46] VITALS: BP 124/73
[2017-06-27] MEDS: Digoxin 125 MCG Tab PO SCH (11:14)
--- NOTE | 2017-06-27 12:46 | PCM.DCSUM1 ---
Discharge Summary - Hospital Course HPI Initial Comments: 89-year-old female presents to the ED per [facility]. She states she developed chest discomfort this afternoon with a rather productive sounding cough and shortness of breath. She has not felt well for the last 2-3 days. She has not eaten hardly at all today and ate only a small amount yesterday. She doesn't clarify that she has any fever or severe chills. Is not noted any odor to her urine. Denies any dysuria urgency or frequency. Denies any chest pain. She was placed on oxygen en route to the hospital but here off of oxygen her sats are 100% on room air. Her pressure is elevated. He is alert and able to answer all questions fairly appropriately. She has a pacemaker left upper anterior chest which apparently the Isauro's are very low. She has not made the decision whether to pursue pacemaker battery change due to her age of 89. She is hoping to outlive her pacemaker - Discharge Data Discharge Date: 06/27/17 (admit 06/26/17) Discharge Disposition: DC/Tfer to SNF 03 Condition: Good - Discharge Diagnosis/Problem(s) (1) Acute exacerbation of congestive heart failure SNOMED Code(s): 49197017 ICD Code: I50.9 - HEART FAILURE, UNSPECIFIED Status: Acute Priority: High Current Visit: Yes Qualifiers: Heart failure type: diastolic Qualified Code(s): I50.33 - Acute on chronic diastolic (congestive) heart failure (2) Hyponatremia with decreased serum osmolality SNOMED Code(s): 663238198 ICD Code: E87.1 - HYPO-OSMOLALITY AND HYPONATREMIA Status: Acute Priority : High Current Visit: Yes (3) Chronic atrial fibrillation SNOMED Code(s): 176315923 ICD Code: I48.2 - CHRONIC ATRIAL FIBRILLATION Status: Chronic Priority: Medium Current Visit: Yes (4) Diabetes mellitus SNOMED Code(s): 14973953 ICD Code: E11.9 - TYPE 2 DIABETES MELLITUS WITHOUT COMPLICATIONS Status: Chronic Priority: Medium Current Visit: Yes Qualifiers: Diabetes mellitus type: type 2 Diabetes mellitus m[facility]p 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 Diabetes mellitus complication status : without complication Qualified Code(s): E11.9 - Type 2 diabetes mellitus without complications (5) CKD (chronic kidney disease) stage 3, GFR 30-59 ml/min SNOMED Code(s): 402664294 ICD Code: N18.3 - CHRONIC KIDNEY DISEASE, STAGE 3 (MODERATE) Status: Chronic Current Visit: No (6) Cardiomyopathy SNOMED Code(s): 49979041 ICD Code: I42.9 - CARDIOMYOPATHY, UNSPECIFIED Status: Chronic Priority: Medium Current Visit: No Qualifiers: Cardiomyopathy type: unspecified Qualified Code(s): I42.9 - Cardiomyopathy , unspecified (7) Hypomagnesemia SNOMED Code(s): 525524202 ICD Code: E83.42 - HYPOMAGNESEMIA Status: Acute Priority: Medium Current Visit: Yes (8) Urge incontinence SNOMED Code(s): 20151885 ICD Code: N39.41 - URGE INCONTINENCE Status: Acute Priority: Medium Current Visit: Yes - Patient Summary/Data Operative Procedure(s) Performed: none Complications: none Consults: Consultations 06/17/17 21:10 Consult to Animal Maintenance Supervisor [CONS] Routine 06/18/17 09:00 Consult to Physical Therapy [PT Evaluation and Treatment] [CONS] Routine 06/18/17 09:30 Consult to Occupational Therapy [OT Evaluation and Treatment] [CONS] Routine Labs Pending at D/C: none Recommended Follow-up Testing/Procedures: Follow up with PCP in 1 week for labs (CBC, CRP, INR) Follow up with cardiology and bladder specialist/urology at scheduled appointments. Hospital Course: Assessment/Plan: Acute: Exacerbation of CHF, Continues to improve -Respiratory distress in ED -Per ED note was recently decreased from 80 mg lasix BID to 40mg in AM and 20mg in PM -Hypertensive on floor arrival--> stable now -BNP 5457-->6149-->5457-->3535-->2825-->4508-->2702 -CRP 1.7-->1.6-->1.1-->0.8-->3.3--> 6.7-->7.3-->4.9 -Lasix drip- Discontinued for 18hrs --> restarted 06/21/17--> started oral lasix 40 mg BID 06/23/17 -Damon catheter for monitoring I&O--> D/C'd 06/22/17 -Will hold off 2 gram sodium diet as sodium is low -Will hold off fluid restriction for now as she appears somewhat dehydrated -Heart failure education -Titrate O2 as needed -Echo obtained 06/18/17 -LVEF 30-35% -Moderately decreased left ventricular systolic function -Mild concentric left ventricular hypertrophy -Restrictive (Grade 3) pattern of diastolic filling -Global mild hypokinesis. Septal movement is paradoxical and may be due to RV pacing of RV overload -Moderate Aortic valve stenosis -Mild aortic valve regurgitation -Inferior vena cava is normal sized with respiratory size variation greater than 50% -No significant change from 11/16/15 -Moderate biatrial dilation -Respiratory viral panel, Influenza, Blood cultures, urine cultures, mycoplasma pneumonia - all negative -Repeat CXR on 06/20/17, 06/27/17--> No changes, Lungs are clear, Cardiomegaly, minimal pulmonary vascular prominence per Dr. House -Recommend going to the paper final inspector for f/u stan for poor LVEF and pacemaker issues--> appointment changed from July to July 16 via -Digoxin levels elevated 06/20/17 at 2.3--> Digoxin held --> due to 1.5 --> Restarted Digoxin 125 on 06/23/17 Urinary Incontinence (urge and stress), Improving -Lasix held for 18 hours, no improvement --> continue Lasix gtt-->now on oral diuretic regimen 06/23/17 -Bladder training. -Oxybutynin previously increased from 5mg-->10mg without relief, D/C'd -Sanctura 20mg q Daily started 06/22/17 (renal/geriatric dose) -Watch potassium levels--> 4.6-->4.4-->3.6-->4-->4.2-->3.9 -D/C potassium supplement -Will refer to Bladder Specialist, Joslyn Ramsey NP from [facility] who comes to [facility] monthly for f/u. -Bladder function test -We recommend a referral to Urologist A Fib on Coumadin; HR controlled -INR 2.26-->2.06 -->1.71 -Pharmacy to dose warfarin -Daily INR -Recommend getting INR checked this upcoming Sunday (06/29/17) with PCP Leukocytosis - WBC 17.58-->17.28-->15.88 - CRP 6.7-->7.3 - Respiratory Panel, Screening Influenza, Blood Cultures and UA - all negative - No respiratory issues and afebrile - Received Levaquin 750 mg po yesterday-->D/C Levaquin today (06/25/17) - Repeated infectious work up--> U/A, blood cultures (day 1)- all negative - Will wait until Blood cultures come back tomorrow 06/27/17 (day 2) to D/C--> no infection seen. -Recommend repeat CBC and CRP in 1 week with PCP Resolved: Hyponatremia -Likely 04/27 Metolazone -Sodium 130 in ED-->125-->130-->134--> 136-->139 -Baseline from all prior visits appears to be 129-131 -Good oral intake reported by nursing -Monitor AM labs Hypomagnesium -1.1-->2.5-->1.9-->1.6-->2.5-->1.7-->2.1 -Mg given 06/20/17, 06/22/17 Renal insufficiency -Baseline appears to be eGFR very low to upper 40's -BUN 29-->31-->39-->54-->40-->39-->63-->61 -Creatinine 1.1-->1.3-->1.8-->1.9-->1.2-->1.3-->1.5-->1.4 -eGFR 47-->39-->26-->25-->42-->39-->33-->35 back to baseline stage III -Was on lasix drip. Held for 18 hours due to kidney function and now back to oral dosing (06/23/17) -Monitor need for IV fluids - balance with worsening CHF Chronic: Impaired vision Angina Hx/o Blood clots/VTE/PE on Coumadin CHF Heart Murmur HLD HTN Hx/o MD Pacemaker GERD Arthritis Osteoporosis Hx/o CVA Type II DM Hx/o Appendecomty Hx/o Cholecystectomy Plan: She remains clinically stable Continue current treatment SW/CM for discharge planning Continue PT/OT Routine AM labs GI prophylaxis: Pepcid DVT/PE prophylaxis: On warfarin Other orders as indicated above Code status: DNR/DNI; PCP: Dr. Chino at [facility] LOS > 96hrs due to slow response to treatment Overall Jenna did quite well. She originally came in for CHF exacerbation and hyponatremia, both of which have responded well to treatment. She did well on Lasix 40BID, but we are sending her home on her original dosage of 40AM and 20PM as she also has a history of renal insufficiency. Echo was done, results above, f/u with her paper final inspector has been scheduled for this month. While here, she also had complaints of urinary frequency which had not improved even after an increase of her home med Oxybutynin, so we have prescribed Sanctura which seems to have provided more relief. She also has a f/u appointment with a bladder specialist and we recommend also seeing a urologist if needed. Her WBC and CRP have been elevated while here, but no source of infection has been found. We recommend f/u with PCP in 1 week for lab workup for CBC and CRP, as well as an INR check. From a hospital standpoint, Jenna is ready for discharge today to [facility]. - Patient Instructions Diet: Heart Healthy Diet Activity: As Tolerated Driving: Do Not Drive Showering/Bathing: May Shower Notify Provider of: Fever, Increased Pain, Nausea and/or Vomiting - Discharge Plan Prescriptions/Med Rec: Trospium [Sanctura] 20 mg PO ACBREAKFAST #30 tablet Home Medications: Home Meds Aspirin [Ecotrin] 81 mg PO DAILY 11/15/15 [History] Ferrous Sulfate [Iron] 325 mg PO DAILY 11/15/15 [History] Gabapentin [Neurontin] 300 mg PO TID 11/15/15 [History] Losartan [Cozaar] 50 mg PO BID 11/15/15 [History] Metoprolol Tartrate 100 mg PO BID 11/15/15 [History] Multivitamin [One-A-Day Essential] 1 tab PO DAILY 11/15/15 [History] Omeprazole 40 mg PO DAILY 11/15/15 [History] Pravastatin [Pravachol] 20 mg PO BEDTIME 11/15/15 [History] SitaGLIPtin [Januvia] 50 mg PO DAILY 11/15/15 [History] Vitamin B6-pyridOXINE [Vitamin B6] 100 mg PO BID 11/15/15 [History] Warfarin [Coumadin] 2 mg PO MOWEFR 11/15/15 [History] Warfarin [Coumadin] 4 mg PO SUTUTHSA 11/15/15 [History] Calcium Carbonate/Vitamin D3 [Calcium 500-Vit D3 200 Caplet] 1 tab PO ACBREAKFAST 06/17/17 [History] Digoxin 125 mcg PO DAILY 06/17/17 [History] Furosemide [Lasix] 20 mg PO QPM 06/17/17 [History] Levothyroxine 25 mcg PO ACBREAKFAST 06/17/17 [History] Metolazone 2.5 mg PO TUTHSA 06/17/17 [History] Furosemide [Lasix] 40 mg PO QAM 06/18/17 [History] Trospium [Sanctura] 20 mg PO ACBREAKFAST #30 tablet 06/27/17 [Rx] Patient Handouts: Hyponatremia, [id number], Type 2 Diabetes Mellitus, Self Care, Adult, Type 2 Diabetes Mellitus, Self Care, Adult, Ludp-[id number], Heart Failure, [id number], Atrial Fibrillation, [id number] Referrals: Lorri Ramsey [Other] - 08/02/17 10:00 am (this appt. is for Bladder specialist) Annie Benz NP [Ordering Only Provider] - 07/16/17 12:30 pm (This is the paper final inspector appt. which is here in [place] at [place].) Gm Chino MD [Primary Care Provider] - (Please call and schedule a post-hospital follow-up appointment with your primary care provider, Dr. Chino, in 7 to 10 days. ) - Discharge Summary/Plan Comment DC Time >30 min.: Yes (40) - General Info Date of Service: 06/27/17 Admission Dx/Problem (Free Text: 89-year-old female presents to the ED per [facility]. She states she developed chest discomfort this afternoon with a rather productive sounding cough and shortness of breath. She has not felt well for the last 2-3 days. She has not eaten hardly at all today and ate only a small amount yesterday. She doesn't clarify that she has any fever or severe chills. Is not noted any odor to her urine. Denies any dysuria urgency or frequency. Denies any chest pain. She was placed on oxygen en route to the hospital but here off of oxygen her sats are 100% on room air. Her pressure is elevated. He is alert and able to answer all questions fairly appropriately. She has a pacemaker left upper anterior chest which apparently the Isauro's are very low. She has not made the decision whether to pursue pacemaker battery change due to her age of 89. She is hoping to outlive her pacemaker. Subjective Update: In to see Jenna. She is sitting in a chair. Overall she is feeling well. Good appetite. Still has urinary urgency, but feels it has improved. She is ready for discharge back to [facility] today. No other concerns. Nursing has no concerns. Functional Status: Reports: Pain Controlled, Tolerating Diet, Ambulating, Urinating - Review of Systems General: Reports: Weakness (baseline). Denies: Fever, Chills HEENT: Reports: No Symptoms Pulmonary: Reports: No Symptoms Cardiovascular: Reports: No Symptoms. Denies: Chest Pain, Edema Gastrointestinal: Denies: Abdominal Pain, Constipation, Diarrhea Genitourinary: Reports: No Symptoms, Urgency (improving). Denies: Dysuria, Burning, Pain Musculoskeletal: Reports: No Symptoms Skin: Reports: No Symptoms Neurological: Reports: No Symptoms Psychiatric: Reports: No Symptoms - Patient Data Vitals - Most Recent: Last Vital Signs Temp 96.6 F 06/27/17 08:15 Pulse 70 06/27/17 11:14 Resp 16 06/27/17 07:14 BP 124/73 06/27/17 08:43 Pulse Ox 98 06/27/17 07:15 Weight - Most Recent: 142 lb 4 oz I&O - Last 24 hours: Intake & Output 06/26/17 06/27/17 06/27/17 22:59 06:59 14:59 Intake Total 600 200 100 Output Total 850 700 Balance -250 -500 100 Lab Results - Last 24 hrs: Laboratory Results - last 24 hr 06/26/17 06/26/17 06/27/17 Range/Units 16:54 21:11 05:40 WBC 13.63 H (3.98-10.04) K/mm3 RBC 3.96 L (3.98-5.22) M/mm3 Hgb 11.6 (11.2-15.7) gm/L Hct 36.0 (34.1-44.9) % MCV 90.9 (79.4-94.8) fl MCH 29.3 (25.6-32.2) pg MCHC 32.2 (32.2-35.5) g/dl RDW Std Deviation 46.8 H (36.4-46.3) fL Plt Count 358 (182-369) K/mm3 MPV 9.6 (9.4-12.3) fl Neut % (Auto) 45.0 (34.0-71.1) % Lymph % (Auto) 43.1 (19.3-51.7) % [place] % (Auto) 5.6 (4.7-12.5) % Eos % (Auto) 5.6 (0.7-5.8) Baso % (Auto) 0.3 (0.1-1.2) % Neut # (Auto) 6.13 (1.56-6.13) K/mm3 Lymph # (Auto) 5.88 H (1.18-3.74) K/mm3 [place] # (Auto) 0.76 H (0.24-0.36) K/mm3 Eos # (Auto) 0.77 H (0.04-0.36) K/mm3 Baso # (Auto) 0.04 (0.01-0.08) K/mm3 Manual Slide Review Not Reportable ESR (0-20) mm/hr PT (8.0-13.0) SECONDS INR Sodium (136-145) mEq/L Potassium (3.5-5.1) mEq/L Chloride (98-107) mEq/L Carbon Dioxide (21-32) mEq/L Anion Gap (5-15) BUN (7-18) mg/dL Creatinine (0.55-1.02) mg/dL Est Cr Clr Drug Dosing mL/min Estimated GFR (MDRD) (>60) mL/min BUN/Creatinine Ratio (14-18) Glucose (83-115) mg/dL POC Glucose 144 H 137 H (83-110) mg/dL Calcium (8.5-10.1) mg/dL C-Reactive Protein (<1.0) mg/dL Digoxin (0.9-2.0) ng/mL 06/27/17 06/27/17 06/27/17 Range/Units 05:40 05:40 05:40 WBC (3.98-10.04) K/mm3 RBC (3.98-5.22) M/mm3 Hgb (11.2-15.7) gm/L Hct (34.1-44.9) % MCV (79.4-94.8) fl MCH (25.6-32.2) pg MCHC (32.2-35.5) g/dl RDW Std Deviation (36.4-46.3) fL Plt Count (182-369) K/mm3 MPV (9.4-12.3) fl Neut % (Auto) (34.0-71.1) % Lymph % (Auto) (19.3-51.7) % [place] % (Auto) (4.7-12.5) % Eos % (Auto) (0.7-5.8) Baso % (Auto) (0.1-1.2) % Neut # (Auto) (1.56-6.13) K/mm3 Lymph # (Auto) (1.18-3.74) K/mm3 [place] # (Auto) (0.24-0.36) K/mm3 Eos # (Auto) (0.04-0.36) K/mm3 Baso # (Auto) (0.01-0.08) K/mm3 Manual Slide Review ESR 76 H (0-20) mm/hr PT 16.0 H (8.0-13.0) SECONDS INR 1.49 Sodium 139 (136-145) mEq/L Potassium 3.9 (3.5-5.1) mEq/L Chloride 98 (98-107) mEq/L Carbon Dioxide 36 H (21-32) mEq/L Anion Gap 8.9 (5-15) BUN 61 H (7-18) mg/dL Creatinine 1.4 H (0.55-1.02) mg/dL Est Cr Clr Drug Dosing 20.56 mL/min Estimated GFR (MDRD) 35 (>60) mL/min BUN/Creatinine Ratio 43.6 H (14-18) Glucose 119 H (83-115) mg/dL POC Glucose (83-110) mg/dL Calcium 9.4 (8.5-10.1) mg/dL C-Reactive Protein 4.9 H* (<1.0) mg/dL Digoxin 1.3 (0.9-2.0) ng/mL 06/27/17 06/27/17 Range/Units 06:07 11:00 WBC (3.98-10.04) K/mm3 RBC (3.98-5.22) M/mm3 Hgb (11.2-15.7) gm/L Hct (34.1-44.9) % MCV (79.4-94.8) fl MCH (25.6-32.2) pg MCHC (32.2-35.5) g/dl RDW Std Deviation (36.4-46.3) fL Plt Count (182-369) K/mm3 MPV (9.4-12.3) fl Neut % (Auto) (34.0-71.1) % Lymph % (Auto) (19.3-51.7) % [place] % (Auto) (4.7-12.5) % Eos % (Auto) (0.7-5.8) Baso % (Auto) (0.1-1.2) % Neut # (Auto) (1.56-6.13) K/mm3 Lymph # (Auto) (1.18-3.74) K/mm3 [place] # (Auto) (0.24-0.36) K/mm3 Eos # (Auto) (0.04-0.36) K/mm3 Baso # (Auto) (0.01-0.08) K/mm3 Manual Slide Review ESR (0-20) mm/hr PT (8.0-13.0) SECONDS INR Sodium (136-145) mEq/L Potassium (3.5-5.1) mEq/L Chloride (98-107) mEq/L Carbon Dioxide (21-32) mEq/L Anion Gap (5-15) BUN (7-18) mg/dL Creatinine (0.55-1.02) mg/dL Est Cr Clr Drug Dosing mL/min Estimated GFR (MDRD) (>60) mL/min BUN/Creatinine Ratio (14-18) Glucose (83-115) mg/dL POC Glucose 129 H 108 (83-110) mg/dL Calcium (8.5-10.1) mg/dL C-Reactive Protein (<1.0) mg/dL Digoxin (0.9-2.0) ng/mL [facility]A Results - Last 24 hrs: Microbiology 06/25/17 16:10 Urine Culture - Final Urine, Clean Catch 06/24/17 13:05 Aerobic Blood Culture - Preliminary Blood - Venous NO GROWTH AFTER 2 DAYS Anaerobic Blood Culture - Preliminary NO GROWTH AFTER 2 DAYS 06/24/17 13:15 Aerobic Blood Culture - Preliminary Blood - Venous - Lab Draw NO GROWTH AFTER 2 DAYS Anaerobic Blood Culture - Preliminary NO GROWTH AFTER 2 DAYS 06/25/17 12:07 Aerobic Blood Culture - Preliminary Blood - Venous - Lab Draw NO GROWTH AFTER 1 DAY Anaerobic Blood Culture - Preliminary NO GROWTH AFTER 1 DAY 06/25/17 12:50 Aerobic Blood Culture - Preliminary Blood - Venous NO GROWTH AFTER 1 DAY Anaerobic Blood Culture - Preliminary NO GROWTH AFTER 1 DAY 06/24/17 11:27 Urine Culture - Final Urine, Clean Catch Med Orders - Current: Current Medications Acetaminophen (Tylenol) 650 mg PO Q6H PRN PRN Reason: Pain/Fever Last Admin: 06/27/17 08:41 Dose: 650 mg Aspirin (Halfprin) 81 mg PO DAILY [facility] Last Admin: 06/27/17 08:44 Dose: 81 mg Bisacodyl (Dulcolax) 10 mg RECTAL DAILY PRN PRN Reason: Constipation Last Admin: 06/21/17 06:15 Dose: 10 mg Dextrose/Water (Dextrose 50% In Water) 50 ml IVPUSH ASDIRECTED PRN PRN Reason: Hypoglycemia Digoxin (Lanoxin) 125 mcg PO DAILY@1200 [facility] Last Admin: 06/27/17 11:14 Dose: 125 mcg Docusate Sodium (Colace) 100 mg PO BEDTIME [facility] Last Admin: 06/26/17 20:59 Dose: 100 mg Ferrous Sulfate (Ferrous Sulfate) 325 mg PO DAILY [facility] Last Admin: 06/27/17 08:41 Dose: 325 mg Furosemide (Lasix) 40 mg PO BIDDIURETIC [facility] Last Admin: 06/27/17 06:29 Dose: 40 mg Gabapentin (Neurontin) 300 mg PO TID [facility] Last Admin: 06/27/17 08:43 Dose: 300 mg Hydralazine HCl (Apresoline) 20 mg IVPUSH Q6H PRN PRN Reason: Hypertension Insulin Aspart (Novolog) 0 unit SUBCUT QIDACANDBED [facility]; Protocol Last Admin: 06/27/17 11:13 Dose: Not Given Levothyroxine Sodium (Levothyroxine) 25 mcg PO ACBREAKFAST [facility] Last Admin: 06/27/17 06:29 Dose: 25 mcg Magnesium Hydroxide (Milk Of Magnesia) 30 ml PO DAILY PRN PRN Reason: Constipation Last Admin: 06/25/17 16:31 Dose: 30 ml Metoprolol Tartrate (Lopressor) 100 mg PO BID [facility] Last Admin: 06/27/17 08:43 Dose: 100 mg Pantoprazole Sodium (Protonix) 40 mg PO DAILY@0700 [facility] Last Admin: 06/27/17 06:29 Dose: 40 mg Saccharomyces Boulardii (Florastor) 250 mg PO DAILY [facility] Last Admin: 06/27/17 08:41 Dose: 250 mg Simvastatin (Zocor) 10 mg PO BEDTIME [facility] Last Admin: 06/26/17 21:01 Dose: 10 mg Spironolactone (Aldactone) 12.5 mg PO DAILY [facility] Last Admin: 06/27/17 08:40 Dose: 12.5 mg Temazepam (Restoril) 7.5 mg PO BEDTIME PRN PRN Reason: Insomnia Last Admin: 06/22/17 02:22 Dose: 7.5 mg Trospium (Sanctura) 20 mg PO ACBREAKFAST [facility] Last Admin: 06/27/17 06:28 Dose: 20 mg Warfarin Sodium (Pharmacy To Dose - Warfarin) 1 dose .XX ASDIRECTED [facility] Warfarin Sodium (Coumadin) 4 mg PO ONETIME ONE Stop: 06/27/17 18:01 Discontinued Medications Acetaminophen (Tylenol) 650 mg PO NOW ONE Stop: 06/22/17 13:38 Last Admin: 06/22/17 14:28 Dose: 650 mg Al Hydroxide/Mg Hydroxide (Mag-Al Plus) 15 ml PO ONETIME ONE Stop: 06/18/17 15:51 Last Admin: 06/18/17 15:51 Dose: 15 ml Digoxin (Lanoxin) 125 mcg PO DAILY [facility] Last Admin: 06/21/17 08:58 Dose: 125 mcg Enoxaparin Sodium (Lovenox) 40 mg SUBCUT Q24H [facility] Last Admin: 06/17/17 22:30 Dose: 40 mg Enoxaparin Sodium (Lovenox) 30 mg SUBCUT Q24H [facility] Enoxaparin Sodium (Lovenox) 30 mg SUBCUT Q24H [facility] Last Admin: 06/19/17 21:01 Dose: 30 mg Furosemide (Lasix) 40 mg IVPUSH NOW ONE Stop: 06/17/17 19:03 Last Admin: 06/17/17 19:20 Dose: 40 mg Sodium Chloride (Normal Saline) 1,000 mls @ 150 mls/hr IV ASDIRECTED [facility] Last Admin: 06/17/17 18:08 Dose: 150 mls/hr Magnesium Sulfate 4 gm/ Premix 100 mls @ 50 mls/hr IV ONETIME ONE Stop: 06/17/17 21:47 Last Admin: 06/17/17 20:03 Dose: Not Given Magnesium Sulfate 2 gm/ Premix 50 mls @ 25 mls/hr IV ONETIME ONE Stop: 06/17/17 22:01 Last Admin: 06/17/17 20:11 Dose: 25 mls/hr Magnesium Sulfate 2 gm/ Premix 50 mls @ 25 mls/hr IV ONETIME ONE Stop: 06/17/17 22:02 Last Admin: 06/17/17 22:29 Dose: 25 mls/hr Levofloxacin/Dextrose 750 mg/ (Premix) 150 mls @ 100 mls/hr IV Q48H [facility] Last Admin: 06/19/17 21:04 Dose: 100 mls/hr Furosemide 100 mg/ Sodium (Chloride) 100 mls @ 4 mls/hr IV TITRATE [facility]; Protocol Last Admin: 06/18/17 20:49 Dose: 4 mls/hr Magnesium Sulfate 2 gm/ Premix 50 mls @ 25 mls/hr IV ONETIME ONE Stop: 06/20/17 18:44 Last Admin: 06/20/17 17:03 Dose: 25 mls/hr Furosemide 100 mg/ Sodium (Chloride) 100 mls @ 4 mls/hr IV TITRATE [facility] Stop: 06/23/17 10:00 Last Admin: 06/22/17 11:38 Dose: 4 mg/hr, 4 mls/hr Magnesium Sulfate 2 gm/ Premix 50 mls @ 25 mls/hr IV ONETIME ONE Stop: 06/23/17 22:01 Last Admin: 06/23/17 21:59 Dose: 25 mls/hr Levofloxacin (Levaquin) 750 mg PO Q48H [facility] Stop: 06/23/17 21:01 Last Admin: 06/23/17 23:00 Dose: Not Given Levofloxacin (Levaquin) 750 mg PO ONETIME ONE Stop: 06/23/17 23:01 Last Admin: 06/23/17 23:00 Dose: 750 mg Levofloxacin (Levaquin) 750 mg PO Q48H [facility] Magnesium Hydroxide (Milk Of Magnesia) 30 ml PO ONETIME PRN PRN Reason: Constipation Magnesium Oxide (Magnesium Oxide) 800 mg PO ONETIME ONE Stop: 06/22/17 14:16 Last Admin: 06/22/17 14:28 Dose: 800 mg Metolazone (Zaroxolyn) 2.5 mg PO TuThSa@0900 [facility] Last Admin: 06/19/17 09:25 Dose: 2.5 mg Non-Formulary Medication (Sitagliptin) 50 mg PO DAILY [facility] Last Admin: 06/19/17 19:34 Dose: Not Given Ondansetron HCl (Zofran) 4 mg IVPUSH ONETIME ONE Stop: 06/17/17 17:58 Last Admin: 06/17/17 18:08 Dose: 4 mg Oral Electrolytes (Thermotabs) 2 each PO BID@1130,1400 [facility] Stop: 06/20/17 14:01 Last Admin: 06/20/17 14:17 Dose: 2 each Oxybutynin Chloride (Oxybutynin Er) 10 mg PO DAILY [facility] Last Admin: 06/21/17 08:59 Dose: 10 mg Potassium Chloride (Klor-Con M20) 20 meq PO DAILY [facility] Last Admin: 06/21/17 08:58 Dose: 20 meq Warfarin Sodium (Coumadin) 2 mg PO MoWeFr@1800 [facility] Last Admin: 06/18/17 18:12 Dose: 2 mg Warfarin Sodium (Coumadin) 4 mg PO SuTuThSa@1800 [facility] Warfarin Sodium (Coumadin) 5 mg PO ONETIME ONE Stop: 06/19/17 18:01 Last Admin: 06/19/17 17:18 Dose: 5 mg Warfarin Sodium (Coumadin) 2 mg PO ONETIME ONE Stop: 06/20/17 18:01 Last Admin: 06/20/17 17:03 Dose: 2 mg Warfarin Sodium (Coumadin) 4 mg PO ONETIME ONE Stop: 06/21/17 18:01 Last Admin: 06/21/17 18:04 Dose: 4 mg Warfarin Sodium (Coumadin) 2 mg PO ONETIME ONE Stop: 06/22/17 18:01 Last Admin: 06/22/17 17:46 Dose: Not Given Warfarin Sodium (Coumadin) 2 mg PO ONETIME ONE Stop: 06/23/17 18:01 Last Admin: 06/23/17 17:44 Dose: 2 mg Warfarin Sodium (Coumadin) 4 mg PO ONETIME ONE Stop: 06/24/17 18:01 Warfarin Sodium (Coumadin) 2 mg PO ONETIME ONE Stop: 06/25/17 18:01 Last Admin: 06/25/17 18:30 Dose: 2 mg Warfarin Sodium (Coumadin) 4 mg PO ONETIME ONE Stop: 06/26/17 18:01 Last Admin: 06/26/17 18:19 Dose: 4 mg - Exam Quality Assessment: Reports: DVT Prophylaxis. Denies: Supplemental Oxygen, Urine Catheter General: Reports: Alert, Oriented, Cooperative HEENT: Reports: Pupils Equal, Pupils Reactive, EOMI, Mucous Membr. Moist/Nice Neck: Reports: Supple Lungs: Reports: Clear to Auscultation, Normal Respiratory Effort, Decreased Breath Sounds Cardiovascular: Reports: Regular Rate, Regular Rhythm, Murmurs (systolic) GI/Abdominal Exam: Normal Bowel Sounds, Soft, Non-Tender, No Distention, Pelvis Stable (Female) Exam: Deferred Rectal (Female) Exam: Deferred Back Exam: Reports: Normal Inspection, Full Range of Motion Extremities: Normal Inspection, Normal Range of Motion, Non-Tender, No Pedal Edema, Normal Capillary Refill Skin: Reports: Warm, Dry, Intact Neurological: Reports: No New Focal Deficit Psy/Mental Status: Reports: Alert, Normal Affect, Normal Mood
[2017-06-27] MEDS ORDERED: Warfarin 4 MG Tab PO ONE (18:00)
== END 2017-06-27 13:25 | DRG 291 ==
LOC: JD.ED 17:38 → JD.MS 20:41
PROVIDERS: ADMIT Internal Medicine Cardiovascular Disease; ATTEND Internal Medicine Cardiovascular Disease
DX: I11.0 Hypertensive heart disease with heart failure (principal); I13.0 Hypertensive heart and chronic kidney disease with heart failure and stage 1 through stage 4 chronic kidney disease, or unspecified chronic kidney disease; R07.9 Chest pain, unspecified; R05 Cough; I50.33 Acute on chronic diastolic (congestive) heart failure; R06.02 Shortness of breath; E87.1 Hypo-osmolality and hyponatremia; R53.81 Other malaise; R53.1 Weakness; H54.7 Unspecified visual loss; E11.22 Type 2 diabetes mellitus with diabetic chronic kidney disease; I20.9 Angina pectoris, unspecified; I25.119 Atherosclerotic heart disease of native coronary artery with unspecified angina pectoris; I42.9 Cardiomyopathy, unspecified; E78.00 Pure hypercholesterolemia, unspecified; R01.1 Cardiac murmur, unspecified; E78.5 Hyperlipidemia, unspecified; G47.00 Insomnia, unspecified; K21.9 Gastro-esophageal reflux disease without esophagitis; M19.90 Unspecified osteoarthritis, unspecified site; R11.2 Nausea with vomiting, unspecified; M81.0 Age-related osteoporosis without current pathological fracture; N18.3 Chronic kidney disease, stage 3 (moderate); R06.03 Acute respiratory distress; I08.0 Rheumatic disorders of both mitral and aortic valves; H91.90 Unspecified hearing loss, unspecified ear; N28.9 Disorder of kidney and ureter, unspecified; R53.83 Other fatigue; R51 Headache; R26.9 Unspecified abnormalities of gait and mobility; I25.2 Old myocardial infarction; K59.00 Constipation, unspecified; R35.0 Frequency of micturition; Z66 Do not resuscitate; R11.0 Nausea; E11.40 Type 2 diabetes mellitus with diabetic neuropathy, unspecified; F32.9 Major depressive disorder, single episode, unspecified; I35.0 Nonrheumatic aortic (valve) stenosis; N39.46 Mixed incontinence; E83.42 Hypomagnesemia; I48.2 Chronic atrial fibrillation; R79.1 Abnormal coagulation profile; Z86.73 Personal history of transient ischemic attack (TIA), and cerebral infarction without residual deficits; Z79.01 Long term (current) use of anticoagulants; Z86.718 Personal history of other venous thrombosis and embolism; Z79.82 Long term (current) use of aspirin; Z79.899 Other long term (current) drug therapy; Z79.84 Long term (current) use of oral hypoglycemic drugs; Z95.0 Presence of cardiac pacemaker; Z90.49 Acquired absence of other specified parts of digestive tract; I44.7 Left bundle-branch block, unspecified; D72.828 Other elevated white blood cell count
CPT/HCPCS: 36415; 71045; 80053; 81001; 82009; 82553; 83605; 83735; 83880; 83930; 84484; 85025; 85610; 86140; 86738; 87040 ×2; 87086; 93005; 96361; 96374; 96375; 99285; J1940; J2405; J7040; 51702; 51798; 71046; 71046-26; 80048; 80162; 82962; 83036; 85652; 87486; 87581; 87633; 87798; 87804; 93010; 93306; 97110-GO; 97110-GP; 97161-GP; 97165-GO; 97530-GO; 97530-GP; 97535-GO; A9270-GY; J1650; J1815-GY; J1956; J3475; J7030